=== PATIENT | female | born 1975 | race Caucasian/White ===

== ENCOUNTER 2018-04-07 10:30 | Outpatient (RCR) | payer MEDICAID, SELFPAY ==
--- NOTE | 2018-04-07 10:30 | DT_ITS ---
This patient was seen during an EMR downtime April 06, 2018 - April 13, 2018. This patient may have a combination of paper and electronic documentation or all paper documentation. All documentation is viewable within the e-chart portion of [facility] for each patient visit.
--- NOTE | 2018-04-14 20:06 | HP.PTEVAL_ITS ---
Patient's Visit Information ARAMIS PACE is a 43 year old F referred to Physical Therapy by Robson Lawson with a diagnosis of Hip Pain. Date of Evaluation: 04/07/18 Physical Therapist: Kari Murphy - Visit Plan Frequency: 2x /Week Duration: 1 Week Plan: 2x prior to surgery - Subjective Subjective: Patient reports that she has hip OA and is having a hip replacement at [facility] on April 14. She has had hip pain for about 4 years. She has had physical therapy outpatient and just finished a few days ago but the insurance company required her to attempt aquatic therapy before they would approve surgery. Dr. Lawson is doing her surgery. Worst: 08/12 Agg: everything Eases: heat Best: 04/12. Pain is in the right hip and radiates to the knee and into the back. Describes it as sharp/shooting and dull and achy depending on the moment. Sleep is disturbed. Work: does not work outside of her home. She does not drive. Is fully I with ADL's. Family does her grocery shopping for her. PMHx/Meds: Asthma, COPD, hip dysplasia, Fibro- Venolin, Flonase, Tramadol - Objective Posture: Fh, RS, increased kyphosis. Gait: severely antalgic- uses a straight cane- decreased stance on the right LE-poor heel/toe pattern. HR/TR: unable to WB on the right. Balance: unable but will weight shift about 25% to the right. Palpation: tender from quad to HS, hip and lumbar spine paraspinals. ROM: Flexion: decreased by 75%. Strength: Core: poor, Hip flexion: 2+/5, extn: 3/5, IR: unable to test secondary to significant pain ER: 4/5 - Goals Goal 1:: Patient will be I with HEP and progression Goal Time Frame: 4-6 Weeks - Rehabilitation Potential Physical Therapy Diagnosis: Patient presents with hypomobility- she has decreased strength, flex, ROM and muscular endurance leading to abnormal gait and increased pain with ADL's. Rehabilitation Potential: Fair - Anticipated Interventions Therapeutic Exercise to Include: Strength training, Endurance training, Balance training, Body mechanics, Flexibilty training, In an aquatic setting For the Purpose of:: To decrease pain Thank you for the opportunity to evaluate your patient. For Medicare and Medicare HMO plans, please review the plan of care and approve it. It will need to be FAXED BACK to us at [phone] for Medicare purposes. Please let me know if there are questions or concerns regarding this plan of care. Physician Signature: Date:
--- NOTE | 2018-04-14 20:09 | HP.PT.NRP ---
HP - Discharge Summary (1) - Patient Information ARAMIS PACE was seen in my office for initial evaluation on 04/07/18. The following Plan of Care was established for this patient: Initial Frequency: 2x /Week Initial Duration: 1 Week - Anticipated Interventions Therapeutic Exercise to Include: Strength training, Endurance training, Balance training, Body mechanics, Flexibilty training, In an aquatic setting For the Purpose of:: To decrease pain This patient was last seen in our office . Pertinent comments regarding their Physical therapy will appear below: Patient is having surgery 04/14/18- d/c at this time At this point I will be discontinuing this patient from physical therapy. I would be happy to see this patient again in the future if found appropriate by the physician. Thank you! Kari Murphy
== END 2018-04-07 19:00 | disposition home or self-care (01) ==
LOC: PT 10:30
PROVIDERS: Family Provider Internal Medicine; PCP Internal Medicine; Visit Provider Orthopaedic Surgery
DX: M16.11 Unilateral primary osteoarthritis, right hip (principal)
CPT/HCPCS: 97113; 97162

== ENCOUNTER 2018-04-14 09:11 | Inpatient (IN) | payer MEDICAID, SELFPAY ==
[2018-03-23 13:15] VITALS: BP 121/81; PULSE 80; RESP 16; TEMP 36.9; O2SAT 96; BMI 41.5
--- NOTE | 2018-03-23 13:30 | RAD_ITS ---
STUDY: X-RAY CHEST REASON FOR EXAM: Female, 43 years old. Preoperative evaluation. History of asthma. TECHNIQUE: PA and lateral views of the chest. COMPARISON: Comparison is made with prior study dated August 08, 2013. FINDINGS: The lungs are clear and expanded. There is no demonstrated pleural abnormality. Normal size heart. There are calcified mediastinal lymph nodes. Normal visualized pulmonary arteries. Normal visualized aortic arch and descending thoracic aorta. Normal visualized thoracic spine. Normal visualized ribs, clavicles, and shoulders. There is no demonstrated abnormality of the visualized soft tissue structures of the upper abdomen. RAD/Chest PA and Lateral IMPRESSION: No acute abnormality is seen. Electronically Signed: Tomer Daugherty MD at 14:31 EDT Tel [phone], Service support ,
--- NOTE | 2018-03-23 13:30 | SDCEKG_ITS ---
Test Reason : Blood Pressure : / mmHG Vent. Rate : 073 BPM Atrial Rate : 073 BPM P-R Int : 128 ms QRS Dur : 080 ms QT Int : 354 ms P-R-T Axes : 059 037 027 degrees QTc Int : 389 ms Normal sinus rhythm Normal ECG Confirmed by HUMBERTO TUCKER, GLORIA ([id number]), editor index MARLEE STRINGER ([id number]) on 03/27/2018 11:01:36 AM Referred By: DEBBIE TRAORE Confirmed By:GLORIA PAUL MD
[2018-03-23 14:00] LABS: Hematocrit 38.2 % (37-47); Hemoglobin 12.9 g/dl (12.0-15.0); Mean Corp Hgb Conc 33.8 g/gl (32-36); Mean Corpuscular Hgb 30.5 pg (27.0-32.0); Mean Corpuscular Volume 90.3 fL (81-99); Mean Platelet Vol. 9.1 fl (6.2-12.0); Platelet Count 311 K/mm3 (150-450); RBC Distribution Width CV 12.9 % (11.6-14.6); RBC Distribution Width SD 42.5 fl (35.1-43.9); Red Blood Count 4.23 M/mm3 (4.2-5.4); White Blood Count 8.4 K/mm3 (4.4-11.0)
[2018-03-23 14:03] LABS: Scan Indicated on CBC? Y/N NO
[2018-03-23 14:23] LABS: Anion Gap 8 (5-15); BUN 11 mg/dL (7-18); BUN/Creat Ratio 18.3 RATIO (10-20); Calcium,Total 8.6 mg/dL (8.5-10.1); Chloride 106 mmol/L (98-107); EST Glomerular Filtration Rate 115 mL/min (>60); Est Glom Filt Rate - Afr Amer 139 mL/min (>60); Estimated Creatinine Clearance 97.95 ml/min; Glucose 85 mg/dL (74-106); Sodium Level 140 mmol/L (136-145)
--- NOTE | 2018-04-03 11:38 | CASEMGMT ---
RN CM attempted to perform pre-op assessment of discharge needs. Voicemail left with return contact information, requesting call to RN CM.
[2018-04-14] VITALS (11 sets, daily range): BP systolic 103–124; BP diastolic 46–86; PULSE 51–109; RESP 16–18; TEMP 36.2–37.2; O2SAT 98–100; BMI 42.8
--- NOTE | 2018-04-14 | HIP_PTH ---
PATIENT: ARAMIS PACE LOC: [facility] U#:[id number] AGE/SX: 43/F ROOM: VA320 RE04/14/[address]: Robson Lawson MD : 1975 BED: 1 DIS: 04/15/2018 SPEC #: [id number] RECD: 04/14/18 14:33 STATUS: DELMAR REOg #: [id number] [place]: 04/14/18 00:[address]: Robson Lawson DEPT: SURGICAL PATHOLOGY RECD BY: Jose Antonio Matt ENTERED: 04/15/18 07:45 SP TYPE: TOTAL HIP OTHR DR: Dr. Jaquelin Levine MD Tissues: Hip, NOS Procedures: Decalcification bone/plaque Surgery Specimen Level IV HEADER OPERATION: Right total hip replacement PRE-OP DIAGNOSIS: Severe osteoarthritis of right hip secondary to shallow acetabulum and valgus hip TISSUE SUBMITTED: Right femoral head/soft tissue MICROSCOPIC DIAGNOSIS Right femoral head and soft tissue, total hip replacement: Femoral head with degenerative osteoarthritic changes. Fragments of fibroadipose tissue, fibroconnective tissue and reactive synovial tissue. SAMI:dom 04/20/18 MICROSCOPIC DESCRIPTION Slides are reviewed. GROSS DESCRIPTION Received is one container designated right femoral head and soft tissue. The specimen consists of a montague femoral head with portion of femoral neck. The femoral head measures 5 x 4.5 x 5 cm and the femoral neck measures up to 1.5 cm in length. The articular surface displays prominent osteophyte formation, eburnation and bone erosion. Also present in the specimen container are multiple irregular fragments of bone reamings and pink-yellow soft tissue measuring in aggregate 8 x 6 x 3.5 cm. Heater Operator Helper sections are submitted in two cassettes as follows: 1 - soft tissue, 2 - bone after decalcification. / SJ:dom 04/15/18 TC:5 CPT: 11015, 86723
[2018-04-14] MEDS: Acetaminophen 500 MG Tablet 1000 MG PO ×3 (09:45→21:20)
[2018-04-14] MEDS: Celecoxib 200 MG Capsule 400 MG PO (09:46)
[2018-04-14] MEDS: oxyCODONE HCl Cr 10 MG Tablet PO (09:46)
[2018-04-14] MEDS: Cefazolin 2 GM in 0.9% Normal Saline 100 ML IV (11:47)
--- NOTE | 2018-04-14 13:11 | RAD_ITS ---
STUDY: X-RAY - RIGHT HIP REASON FOR EXAM: Female, 43 years old. Postop TECHNIQUE: Radiological exam, hip, unilateral, when performed; 2 or 3 views. COMPARISON: None. FINDINGS: Review of the hips and unilateral right hip was performed. There is postoperative gas overlying the right hip soft tissues. There is a right hip arthroplasty appears to be in appropriate position. RAD/Hip Min 2 Views (Portable) IMPRESSION: Status post right hip arthroplasty. Electronically Signed: Priscilla Joe MD at 13:42 EDT Tel , Service support ,
[2018-04-14] MEDS: clonazePAM 0.5 MG Tablet PO ×2 (16:58→22:15)
[2018-04-14] MEDS: oxyCODONE 5 MG Tablet PO ×2 (16:58→22:15)
[2018-04-14] MEDS: Lactated Ringers 1,000 ML 125 ML IV (17:00)
[2018-04-14] MEDS: Aspirin 325 MG Tablet PO (17:00)
[2018-04-14] MEDS: Budesonide Respules 0.5 MG/2 ML AMPUL.NEB. INHALATION (19:27)
[2018-04-14] MEDS: Albuterol 2.5 MG/3 ML VIAL.NEB. INHALATION (19:27)
[2018-04-14] MEDS: Cefazolin 1 GM/50 ML BAG IV (19:30)
[2018-04-14] MEDS: Ketorolac 15 MG/ML Vial IV (19:39)
[2018-04-14] MEDS: Morphine 4 MG/ML Syringe IV (20:37)
[2018-04-14] MEDS: Celecoxib 200 MG Capsule PO (21:20)
[2018-04-14] MEDS: Acyclovir 200 MG Capsule PO (21:20)
[2018-04-14] MEDS: Senna/Docusate Sodium 1 Tablet 2 TABLET PO (21:20)
[2018-04-15 02:15] VITALS: BP 113/74; PULSE 82; RESP 17; TEMP 36.8; O2SAT 99
[2018-04-15] MEDS: oxyCODONE 5 MG Tablet PO ×3 (03:56→14:47)
[2018-04-15] MEDS: Cefazolin 1 GM/50 ML BAG IV (03:57)
[2018-04-15] MEDS: Acetaminophen 500 MG Tablet 1000 MG PO ×2 (05:08→14:04)
[2018-04-15 06:22] LABS: Hematocrit 31.8 % (37-47); Hemoglobin 10.8 g/dl (12.0-15.0); Mean Corpuscular Hgb 31.1 pg (27.0-32.0); Mean Corpuscular Volume 91.6 fL (81-99); Mean Platelet Vol. 9.1 fl (6.2-12.0); Platelet Count 285 K/mm3 (150-450); RBC Distribution Width CV 12.1 % (11.6-14.6); RBC Distribution Width SD 39.3 fl (35.1-43.9); Red Blood Count 3.47 M/mm3 (4.2-5.4); White Blood Count 8.9 K/mm3 (4.4-11.0)
[2018-04-15 06:39] LABS: Scan Indicated on CBC? Y/N NO
[2018-04-15] MEDS: Albuterol 2.5 MG/3 ML VIAL.NEB. INHALATION (06:59)
[2018-04-15] MEDS: Budesonide Respules 0.5 MG/2 ML AMPUL.NEB. INHALATION (06:59)
[2018-04-15 07:00] VITALS: PULSE 71; RESP 17
[2018-04-15 07:00] LABS: Anion Gap 5 (5-15); BUN 9 mg/dL (7-18); Calcium,Total 7.8 mg/dL (8.5-10.1); Chloride 105 mmol/L (98-107); Creatinine, Serum 0.75 mg/dL (0.55-1.02); EST Glomerular Filtration Rate 89 mL/min (>60); Est Glom Filt Rate - Afr Amer 108 mL/min (>60); Estimated Creatinine Clearance 78.36 ml/min; Glucose 101 mg/dL (74-106); Potassium 3.9 mmol/L (3.5-5.1); Sodium Level 140 mmol/L (136-145)
[2018-04-15 07:48] VITALS: O2SAT 96
[2018-04-15] MEDS: Aspirin 325 MG Tablet PO (07:57)
[2018-04-15] MEDS: Celecoxib 200 MG Capsule PO (07:58)
[2018-04-15] MEDS: Senna/Docusate Sodium 1 Tablet 2 TABLET PO (07:58)
[2018-04-15] MEDS: Famotidine 20 MG Tablet PO (07:58)
[2018-04-15] MEDS: Tolterodine Tartrate 4 MG CAP.SA PO (07:58)
[2018-04-15] MEDS: DULoxetine Hcl 60 MG Capsule PO (07:58)
[2018-04-15] MEDS: Acyclovir 200 MG Capsule PO (07:59)
[2018-04-15] MEDS: Loratadine 10 MG Tablet PO (07:59)
[2018-04-15 08:00] VITALS: BP 94/55; PULSE 81; RESP 18; TEMP 36.8; O2SAT 97
[2018-04-15] MEDS: clonazePAM 0.5 MG Tablet PO (08:02)
--- NOTE | 2018-04-15 09:42 | PN.ORTHO_ITS ---
Subjective: Patient is resting in chair at bedside during exam. No adverse events overnight. Pain has been very well controlled in the right hip. She is very pleased with how she is feeling postoperatively. She would like to be discharged home today. She denies chest pain, shortness of breath, dizziness, calf pain. Doing well overall. Objective: Patient is alert and oriented ?3. No acute distress at rest. Breathing easily without respiratory distress. Inspection of right hip reveals a dressing clean , dry, intact. Negative Rodolfo bilaterally. Sensation intact to light touch bilaterally. Pedal pulses present and equal bilaterally. Without signs of DVT. Neurovascularly intact. - Physical Exam Vital Signs Temp Pulse Resp BP Pulse Ox 98.2 F 81 18 94/55 L 97 04/15/18 08:00 04/15/18 08:00 04/15/18 08:00 04/15/18 08:00 04/15/18 08:00 Oxygen Delivery Method Room Air Weight: 107.955 kg Body Mass Index (BMI) 42.8 Intake and Output for Last 24 Hours 04/13/18 04/14/18 04/15/18 23:59 23:59 23:59 Intake Total 2700 / 2700 2244 / 2244 Balance 2700 / 2700 2244 / 2244 Laboratory Tests Past 24 Hrs 04/15/18 04/15/18 05:47 05:47 WBC 8.9 RBC 3.47 L Hgb 10.8 L Hct 31.8 L MCV 91.6 MCH 31.1 MCHC 34.0 RDW 12.1 RDW Differential 39.3 Plt Count 285 MPV 9.1 Sodium 140 Potassium 3.9 Chloride 105 Carbon Dioxide 30.0 Anion Gap 5 BUN 9 Creatinine 0.75 Estim Creat Clear Calc 78.36 Est GFR (MDRD) Af Amer 108 Est GFR (MDRD) Non-Af 89 BUN/Creatinine Ratio 12.0 Glucose 101 Calcium 7.8 L Medical Necessity - Tobacco Use Smoking Status: Current every day smoker Tobacco Use: Cigarettes Assessment/Plan All Active Problems COPD (chronic obstructive pulmonary disease) (Acute) 1. Status post right EUGENIO; postop day #1 2. Continue OxyIR and Tylenol for pain control 3. DVT prophylaxis; bilateral teds, SCDs discontinue aspirin therapy begin Xarelto therapy due to history of factor V Leiden deficiency and history of blood clot 4. Begin PT/OT; weightbearing as tolerated right lower extremity with a walker. Hip dislocation precautions 5. Drop in hemoglobin hematocrit; without indication for transfusion continue to monitor. 6. Encourage incentive spirometry 7. Continue discharge planning with case management
--- NOTE | 2018-04-15 09:45 | PCM.DC.THR ---
Discharge Diet: No Restrictions Discharge Activity: May Not Drive - while taking narcotic pain medications., May not drive while taking narcotic pain medications., Use Walker May shower in (days): 2 - only if incision is dry and without drainage. Do NOT soak/submerge in tub/pool/shannon/stream/hot tub. Okay to shower over Mepilex dressing Ice area for (Minutes): 20 - Every hour as needed Weight Bearing Status: Weight bearing as tolerated Elevate: Operative Extremity Additional Activity Instructions:: Wear elastic stockings for 2 weeks. DO NOT use alcohol with narcotic pain medication. DO NOT make important decisions while taking narcotic medication. If you have problems with taking your medication (rash, itching, nausea, etc.) call the office at once. Hip dislocation precautions. See postoperative pink sheet Call your doctor if your incision/area has: Continuous Slow Oozing, Sudden Increased Bleeding, Increased Pain/ Swelling, Increased Redness, Foul Smelling Discharge Call your doctor if you observe: Fever of 101 or Higher, Coldness, Increased Pain, Numbness or Tingling, Shortness of breath, Chest pain, Calf discomfort, Uncontrolled pain Remove Dressing in (days):: 5 Cleanse incision/area with: Soap & Water Additional Dressing/Incision Instructions:: See postoperative pink sheet Allergies/Adverse Reactions: Allergies No Known Allergies Allergy (Verified 03/23/18 13:10) Medications to take at Discharge Albuterol Inhaler [Ventolin Hfa] 1 - 2 puff INHALATION Q4H PRN PRN #1 inhaler 08/08/13 Cetirizine HCl [Zyrtec] 10 mg PO DAILY 08/08/13 Budesonide/Formoterol 160/4.5 [Symbicort 160/4.5 Mcg Inhaler (SP)] 2 puff INHALATION BID 03/23/18 Fluticasone 0.05% [Flonase Nasal [place]] 2 spray NASAL DAILY 03/23/18 Ranitidine [Zantac] 150 mg PO DAILY 03/23/18 Clonazepam [Klonopin] 0.5 mg PO Q4H PRN PRN 04/14/18 Duloxetine Hcl [Cymbalta] 60 mg PO DAILY 04/14/18 Oxybutynin Chloride [Ditropan Xl] 15 mg PO DAILY 04/14/18 Valacyclovir HCl [Valtrex] 500 mg PO DAILY 04/14/18 Acetaminophen [Tylenol] 1,000 mg PO Q8 #60 tab 04/15/18 Oxycodone [Oxyir] 5 - 10 mg PO Q4H PRN PRN 7 Days #56 tablet 04/15/18 Rivaroxaban [Xarelto] 10 mg PO DAILY@0600 #15 tab 04/15/18 Senna/Docusate Sodium [Senokot-S] 2 tab PO BID #30 tab 04/15/18 The following prescriptions were given: Oxycodone [Oxyir] 5 - 10 mg PO Q4H PRN PRN 7 Days #56 tablet PRN Reason: Mod-Severe Pain (-08/12) Acetaminophen [Tylenol] 1,000 mg PO Q8 #60 tab Rivaroxaban [Xarelto] 10 mg PO DAILY@0600 #15 tab Senna/Docusate Sodium [Senokot-S] 2 tab PO BID #30 tab Primary Care Physician: Jaquelin Lveine MD [Primary Care Provider] -
--- NOTE | 2018-04-15 11:10 | CASEMGMT ---
TRA JOHNSON Face to Face with patient for initial transition planning/care coordination assessment. TRA JOHNSON introduced self and role at [facility]. Patient sitting in chair, alert and oriented. Patient willing to participate in assessment and is able to answer all questions appropriately. Care providers, pharmacy, and demographics verified. Patient lives in a mobile home with her fiance with 5 steps to enter home. Patient states that she had a shower chair, raised toilet seat, hip kit, walker. Patient wishes to discharge home and is requesting HHC for PT. Sisit states that she has no preference for HHC as long as in-network with her insurance. Patient also stated that she was updated by pharmacy that her script for oxycodone would need prior authorization. Patient states she has no further needs or concerns at this time. CM to follow for discharge planning needs that may arise. Disposition Plan: Patient to discharge home with HHC, family support, and follow-up plans in place.
--- NOTE | 2018-04-15 14:00 | CASEMGMT ---
RN ELIZABETH called [facility], [facility], [facility], and [facility] and they are all unable to accept the patient either due to no staffing or unable to accept the patients insurance. RN ELIZABETH sent referral to [facility] and they are able to accept the patient. TRA JOHNSON also called [facility] to assist with oxycodone prior authoriztion. Per [facility] pharmacist Pam, [employer] insurance would only authorize 6 tabs per day for oxycodone 5mg and order is written for oxycodone 5mg 1-2tabs q 4 hours PRN for 7 days. RN CM updated AGUSTIN Garner regarding prior authorization. AGUSTIN Bradley requested that [facility] call her for verbal change to escript. TRA JOHNSON called [facility] with PA's request and pharmacy is unable to take verbal change to due medication being a narcotic. AGUSTIN Garner updated and requested CM attempt prior auth with [employer] insurance. TRA JOHNSON completed verbal prior auth over the phone with [facility] which could take up to 24 hours to approve or deny. RN ELIZABETH called GAUSTIN Garner and updated regarding prior auth. AGUSTIN Garner stated that she would be in later this afternoon to complete updated script for pain medication so patient can discharge. RN ELIZABETH will continue to follow this patient and plan for a safe discharge.
[2018-04-15 14:05] VITALS: BP 116/68; PULSE 64; RESP 16; TEMP 36.9; O2SAT 97
--- NOTE | 2018-04-15 15:09 | CASEMGMT ---
Social Work Note TRA Mcclellan updated this worker that pt has HCPOA but pt had already signed document and had her friend witness it. SW informed TRA Claudio that this worker will have to redo the document with pt so that two witnesses at hospital can witness her signature and sign document. SW in to meet with pt. SW informed pt that because she had already signed document and she only had one person witness her signature, pt will need to redo document. Pt states understanding and would like to complete HCPOA and living will documentation. SW assisted pt with completion of Health Care Power of Small Business Director and Living Will document. TRA Claudio and this worker witness pt's signature and signed document. SW copied document and placed on pt's chart and provided pt with original document. Pt denied additional needs or concerns. Plan: Discharge home Lacey Estrada [employer] DE[employer], [employer]
== END 2018-04-15 16:20 | disposition home or self-care (01) | DRG 301 ==
PROVIDERS: Admitting Provider Orthopaedic Surgery; Family Provider Internal Medicine; PCP Internal Medicine; Visit Provider Orthopaedic Surgery
PROC: 0SR90JZ Replacement of Right Hip Joint with Synthetic Substitute, Open Approach (ICD-10-PCS; CPT 27130; principal; 2018-04-14 10:50)
DX: M16.11 Unilateral primary osteoarthritis, right hip (principal); J44.9 Chronic obstructive pulmonary disease, unspecified; R71.0 Precipitous drop in hematocrit; K21.9 Gastro-esophageal reflux disease without esophagitis; J45.909 Unspecified asthma, uncomplicated; D68.51 Activated protein C resistance; M81.0 Age-related osteoporosis without current pathological fracture; F17.200 Nicotine dependence, unspecified, uncomplicated
CPT/HCPCS: 36415; 71046; 73502; 80048; 85027; 87081; 88305; 88311; 93005; 94640; 97116; 97162; 97165; 97530; 97535; C1776; J7120; A4216

== ENCOUNTER 2018-04-15 08:24 | Outpatient (RCR) | payer MEDICAID, SELFPAY | END 2018-04-15 08:25 | LOC: NS 08:24 | PROVIDERS: Family Provider Internal Medicine; PCP Internal Medicine; Visit Provider Orthopaedic Surgery | DX: M16.11 Unilateral primary osteoarthritis, right hip (principal) | CPT/HCPCS: 97802 ==

== ENCOUNTER 2023-05-02 15:46 | Outpatient (CLI) | payer MEDICAID, SELFPAY ==
--- NOTE | 2023-05-02 16:10 | RAD_ITS ---
INDICATION: crush injury left index finger at PIP joint EXAMINATION/TECHNIQUE: X-RAY - LEFT HAND XR Fingers Min 2 Views : 3 VIEWS left second finger COMPARISON: No relevant prior comparison study available FINDINGS: SOFT TISSUES: Mild diffuse second digit edema with overlying mid digit bandage. No radiopaque foreign body. BONES/JOINTS: No acute fracture or subluxation.. Normal alignment. Preservation of the joint space.. No sclerotic or destructive changes observed. RAD/Finger(s) Min 2 Views IMPRESSION: Second digit edema without evidence of underlying osseous injury.. Electronically Signed: Satish Irving MD at 23:39 EDT ,
== END 2023-05-02 23:59 | disposition home or self-care (01) ==
LOC: RAD 15:47
PROVIDERS: PCP Family Medicine; Referring Provider Surgery; Visit Provider Surgery
DX: S61.211A Laceration without foreign body of left index finger without damage to nail, initial encounter (principal); S66.321A Laceration of extensor muscle, fascia and tendon of left index finger at wrist and hand level, initial encounter; S67.10XA Crushing injury of unspecified finger(s), initial encounter; X58.XXXA Exposure to other specified factors, initial encounter; Y99.0 Civilian activity done for income or pay
CPT/HCPCS: 73140

== ENCOUNTER 2023-05-07 09:54 | Day surgery (SDC) | payer OTHER, MEDICAID, SELFPAY ==
[2023-05-07] VITALS (8 sets, daily range): BP systolic 91–125; BP diastolic 62–89; PULSE 61–85; RESP 16–20; TEMP 36.1–38.2; O2SAT 93–100; BMI 42.7
[2023-05-07] MEDS: Lactated Ringers 1,000 ML 15 ML IV (10:50)
[2023-05-07] MEDS: Vancomycin IV 1,000 MG/200 ML BAG 200 MG IV (10:50)
--- NOTE | 2023-05-07 11:20 | BON_PTH ---
PATIENT: ARAMIS PACE LOC: [facility] [place] U#:[id number] AGE/SX: 48/F ROOM: RE05/07/[address]: Dr. Robson Fair MD : 1975 BED: DIS: 05/07/2023 SPEC #: [id number] RECD: 05/07/23 15:37 STATUS: DELMAR PEYTON #: [id number] [place]: 05/07/23 11:[address]: Robson Fair DEPT: SURGICAL PATHOLOGY RECD BY: Teressa Gonsales ENTERED: 05/08/23 08:15 SP TYPE: Bone OTHR DR: Nery Weinberg PA-C Tissues: A - TISSUE SURGICALLY REMOVED B - Bone of hand, NOS Procedures: Decalcification bone/plaque Surgery Specimen Level III Surgery Specimen Level IV HEADER OPERATION: Surgical preparation dorsum left index finger at PIP joint PRE-OP DIAGNOSIS: Laceration of dorsal aspect left index finger at PIP joint secondary to crush injury TISSUE SUBMITTED: A - Debrided nonhealing soft tissue, left index finger, B - Bone left index finger MICROSCOPIC DIAGNOSIS A. Skin and soft tissue of left index finger, biopsy: Ulceration with associated acute and chronic inflammation. Minute fragments of bone and cartilage with no pathologic change. B. Bone, right index finger, biopsy: Fragments of bone with reactive and reparative change. No evidence of osteomyelitis. AM:dom 05/13/23 MICROSCOPIC DESCRIPTION Slides are reviewed. GROSS DESCRIPTION A - Received in fixative is one container labeled with the patient's name and designated debrided nonhealing soft tissue left index finger. The specimen consists of multiple irregular fragments of montague-white soft tissue and skin that in aggregate measure 2.0 x 1.5 x 0.2 cm. The specimen is totally submitted in one cassette. B - Received in fixative is one container labeled with the patient's name and designated bone left index finger. The specimen consists of multiple irregular fragments of light montague bone fragments that in aggregate measure 0.6 x 0.5 x 0.2 cm. The specimen is totally submitted in one cassette after decalcification. / AM:dom 05/08/2023 TC:[id number] CPT:2
--- NOTE | 2023-05-07 11:20 | BON_PTH ---
PATIENT: ARAMIS PACE LOC: [facility] [place] U#:[id number] AGE/SX: 48/F ROOM: RE05/07/[address]: Dr. Robson Fair MD : 1975 BED: DIS: 05/07/2023 SPEC #: [id number] RECD: 05/07/23 15:37 STATUS: DELMAR PEYTON #: [id number] [place]: 05/07/23 11:[address]: Robson Fair DEPT: SURGICAL PATHOLOGY RECD BY: Teressa Gonsales ENTERED: 05/08/23 08:15 SP TYPE: Bone OTHR DR: Nery Weinberg PA-C Tissues: A - TISSUE SURGICALLY REMOVED B - Bone of hand, NOS Procedures: Decalcification bone/plaque Surgery Specimen Level III Surgery Specimen Level IV HEADER OPERATION: Surgical preparation dorsum left index finger at PIP joint PRE-OP DIAGNOSIS: Laceration of dorsal aspect left index finger at PIP joint secondary to crush injury TISSUE SUBMITTED: A - Debrided nonhealing soft tissue, left index finger, B - Bone left index finger MICROSCOPIC DIAGNOSIS A. Skin and soft tissue of left index finger, biopsy: Ulceration with associated acute and chronic inflammation. Minute fragments of bone and cartilage with no pathologic change. B. Bone, left index finger, biopsy: Fragments of bone with reactive and reparative change. No evidence of osteomyelitis. AM:dom 05/13/23 AM:dom 05/21/2023 MICROSCOPIC DESCRIPTION Slides are reviewed. GROSS DESCRIPTION A - Received in fixative is one container labeled with the patient's name and designated debrided nonhealing soft tissue left index finger. The specimen consists of multiple irregular fragments of montague-white soft tissue and skin that in aggregate measure 2.0 x 1.5 x 0.2 cm. The specimen is totally submitted in one cassette. B - Received in fixative is one container labeled with the patient's name and designated bone left index finger. The specimen consists of multiple irregular fragments of light montague bone fragments that in aggregate measure 0.6 x 0.5 x 0.2 cm. The specimen is totally submitted in one cassette after decalcification. / AM:dom 05/08/2023 TC:2 CPT: 58982x7, 34254
[2023-05-07] MEDS: Lidocaine 1% /Epi 1:100 (20ml) 20 ML Vial (12:13)
[2023-05-07] MEDS: Mupirocin Ointment 22gm Tube 1 APPLIC (13:53)
--- NOTE | 2023-05-07 14:09 | PCM.OPRPT ---
Problems Associated Problem List Diagnoses (1) Laceration of left index finger w/o foreign body w/o damage to nail: (2) Skin ulcer of finger: (3) Skin necrosis: (4) Laceration without foreign body of left index finger without damage to nail, sequela: (5) Laceration of extensor structure of left index finger at hand level: (6) Crushing injury of finger, left: (7) Smoker: (8) Work related injury: (9) Finger osteomyelitis, left: Report of Operation Date of Procedure: 05/07/23 Pre-Operative Diagnosis: 1. Laceration of dorsal aspect left index finger at PIP joint secondary to crushing injury with suspicion of extensor tendon injury. 2. Late effect laceration left index finger with ulceration and skin necrosis. 3. Crushing injury of left index finger. 4. Work related injury. 5. Current every day smoker. Post-Operative Diagnosis: 1. Laceration of dorsal aspect left index finger at PIP joint secondary to crushing injury with suspicion of extensor tendon injury. 2. Late effect laceration left index finger with ulceration and skin necrosis. 3. Extensor digitorum communis (EDC) tendon laceration involving central slip PIP joint (Zone 3) left index finger. 4. Osteomyelitis distal portion proximal phalanx and proximal portion middle phalanx (PIP joint) left index finger. 5. Crushing injury of left index finger. 6. Work related injury. 7. Current every day smoker. Surgery/Procedure Performed:: 1. Surgical preparation dorsal aspect left index finger at PIP joint with incision and drainage and excisional debridement nonhealing infected ulcer. 2. Repair of extensor tendon laceration involving central slip of the common extensor at the PIP joint (Zone 3) left index finger. 3. Partial ostectomy distal portion proximal phalanx for osteomyelitis. 4. Partial ostectomy proximal portion middle phalanx for osteomyelitis. 5. Complex wound closure left index finger with dorsal advancement skin flap (10.5 cm2). Description of Surgical Findings:: 48 year old female, who is left hand dominant, presents with a left index finger injury that initially occurred while working on 04/03/23. She was referred to us by Dr. Carter at [facility], whom she saw on 04/28/23. 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 It cut her finger on the dorsal aspect at the PIP joint. She placed antibiotic ointment on it and covered it with a band aid and went back to work. She states that it scabbed over and the scab fell off a couple weeks ago with a residual ulceration. The ulceration increased her pain and discomfort. She went to see her PCP 04/24/23 who prescribed Silvadene cream to be applied to the ulcer and placed her on Keflex. The pain and redness and swelling increased. She went to the ED at [facility] on 04/28/23 where they took and x-ray and added Bactrim to the Keflex and updated her Tetanus vaccine. The x-ray showed No acute disease. Mild degenerative changes are present at the interphalangeal joints. Jewelry obscures a portion of the base of the 2nd digit. A splint was placed to keep her left index finger extended at the DIP and PIP joints. She was referred to Dr. Carter at [facility], whom she saw the next day on 04/29/23. He was able to cut the ring off her left index finger and he referred her to us for further evaluation and treatment. Patient was informed of the risks and complications of the procedure including alternatives to surgery. These were discussed with the patient personally. Patient voices understanding and wishes to proceed. Some of the risks and complications were included in a form from the [employer]. Some of the risks and complications that were discussed included but were not inclusive of failure to diagnose including symptom relief, pain, infection, numbness, stiffness, loss of digit, RSD (CRPS), need for further surgery, contracture, and wound healing problems. Potential risks and complications included but not inclusive of bleeding, infection, seroma, hematoma, bruising, swelling, loss of sensation to skin, partial or complete loss of skin, wound breakdown, need for wound care, poor scarring, poor aesthetic outcome, intra operative cardiac or neurologic events, DVT, PE, and reaction to anesthesia. Encouraged patient to stop smoking as it may have deleterious effects on wound healing. Total tourniquet time - 115 minutes. Surgeon: Robson Fair MD marine specialist: None Type of Anesthesia: General Anesthesiologist: Ji Livingston MD and Fadia Felix CRNA Specimen's removed: 1. Infected soft tissue left index finger ulcer to Pathology and Microbiology. 2. Bone (PIP joint) left index finger ulcer to Pathology and Microbiology. Drains: None. Estimated Blood Loss (mL): 5. Description of Procedure: Patient was taken to OR in supine position and was placed under general anesthesia. The left upper extremity was prepped and draped to the mid-forearm in the usual fashion. SCD's were placed for DVT prophylaxis. Perioperative antibiotics were given intravenously. Using xylocaine with epinephrine, a digital metacarpal block was infiltrated to the index finger. After waiting 5 minutes for the anesthetic to take effect, the left hand was elevated. I held a towel over the left hand as the tourniquet was elevated to 250 mmHg. I proceeded with the surgery under loupe magnification. I started with surgical preparation left index finger with incision and drainage and excisional debridement nonhealing infected ulcer. Small amount of pus was seen. A lot of fat necrosis was present and was excised and debrided. The skin edges of the ulcer were excised and debrided. Dissecting down to the extensor tendon, there was injury to the central slip of the common extensor at the PIP joint. I extended the incision in a zig zag fashion distally and in a longitudinal fashion proximally to get better exposure. There was also an injury to the radial lateral band. Distally there was an injury to the triangular ligament. The central slip injury was not a complete separation off the bone. It was however swollen and frayed. I proceeded with a repair with 4-0 Nylon figure of eight interrupted sutures. I also used 4-0 Nylon figure of eight interrupted sutures for the repair of the radial lateral band and triangular ligament. The injury extended into the PIP joint. No pus was seen. There is concern about osteomyelitis. Using a rongeur, I proceeded with partial ostectomy of the distal portion proximal phalanx and the proximal portion middle phalanx. I irrigated out the wound copiously with saline. Half the soft tissue and half the bone was sent to Pathology for analysis to rule out carcinoma and to evaluate for osteomyelitis. Half the soft tissue and half the bone was sent to Microbiology for culture. A positive culture will necessitate antibiotic therapy. The wound and tendon looked rug cleaner hand to try and close the wound with a dorsal advancement skin flap. The closure will give some protection to the recently repaired extensor tendon. By not closing the wound, the exposure of tendon along with its repair will have increased risk of the tendon drying out or the tendon rupturing which would increase the complexity of the finger reconstruction. I continued the radial longitudinal extension proximally onto the dorsum of the hand and then in a zig zag fashion past the MP joint. I elevated the proximal flap at the level of the extensor tendon. The dorsal skin flap was freed up enough to be advanced into the wound defect with minimal tension and minimal distortion. The size of the wound defect and the size of the flap needed to close the wound defect was 10.5 cm2. The wound defect measured 1.5 x 1.5 cm. The flap measured 5.5 x 1.5 cm. The tourniquet was released after 115 minutes. Hemostasis was obtained with electrocautery and gentle gauze compression. I then closed the skin with 5-0 Nylon simple interrupted and vertical mattress interrupted sutures. The flap remained pink with good capillary refill. No clinical evidence of hematoma. Antibiotic ointment was applied to the suture lines followed by 2x2 gauze over the incisions and the web spaces. This was followed with a 2 inch Erik wrap and a compression haim wrap over a plaster splint keeping the fingers extended and the MP joints flexed and the wrist in slight dorsiflexion. Patient tolerated the procedure well and was sent to PACU in satisfactory condition. Patient will be sent home on antibiotics and pain medication. She will keep her left hand and index finger elevated during the postoperative period. Patient will followup in a week for a wound check and for discussion of the pathology report and for discussion of the microbiology report. A positive culture will necessitate antibiotic therapy. The sutures will be removed in 2 weeks. Will set her up with OT to fashion a silastic (thermoplastic) splint along with range of motion exercises, strengthening, and edema management. Grafts/Implants Used: None. Procedure Start Time: 11:56 Procedure Stop Time: 14:01 Complications None. Admit VTE Documentation VTE Present on Admission: No VTE Mechan Device Prophylaxis: SCD's VTE Pharm Prophylaxis ordered?: No Addendum Addendum: Surgery Charges CPT - 21757 ICD-10 - S61.211A, L98.499, I96, S61.211S, S66.321A, M86.9, S67.10xA, Y99.0, F17.200 50654 S61.211A, S66.321A, L98.499, I96, S61.211S, M86.9, S67.10xA, Y99.0, F17.200 53299 S61.211A, M86.9, L98.499, I96, S61.211S, S66.321A, S67.10xA, Y99.0, F17.200 50768 S61.211A, M86.9, L98.499, I96, S61.211S, S66.321A, S67.10xA, Y99.0, F17.200 73283 S61.211A, L98.499, I96, S61.211S, S66.321A, M86.9, S67.10xA, Y99.0, F17.200
--- NOTE | 2023-05-07 15:55 | DCINST_ITS ---
Discharge Instructions Diet Discharge Diet: No restrictions and - (encourage nutritional supplementation with protein to help the healing process.) Activity Discharge Activity: May Shower (wear plastic bag over left hand when showering.) and - (no lifting with left hand. elevate left hand.) Return to work on:: 08/03/23 (tentative) May shower in (days): 1 (wear plastic bag over left hand when showering.) May resume sexual activity in: 10-14 days Weight Bearing Status: Weight bearing as tolerated Keep extremity elevated above heart level: Left Arm Dressing / Incision Call your doctor if your incision/area has: Continuous Slow Oozing, Sudden Increased Bleeding, Increased Pain/ Swelling, Increased Redness, Foul Smelling Discharge and Swelling at the incision site Call your doctor if you observe: Fever of 101 or Higher, Coldness, Increased Pain, Shortness of breath, Chest pain, Calf discomfort and Uncontrolled pain Remove Dressing in: do not remove dressing (will remove operative dressing in the office.) Cleanse incision/area with: - (wear plastic bag over left hand when showering.) Follow Up Care Please Follow Up With: Robson Fair MD When: one week. call [phone] for appt. Test Results: Test results from this visit will be discussed in further detail at your follow- up appointment, if applicable. Discharge Plan Admission Primary Reason for Your Visit: complex hand surgery from injury at work Attending Provider: Robson Fair Primary Care Provider: Nrey Weinberg Discharge Orders/Prescriptions Prescriptions: New doxycycline hyclate 100 mg capsule 100 mg PO BID Qty: 30 1RF L.acidoph,saliva-B.bif-S.therm [Acidophilus Probiotic Blend] 175 mg capsule 1 cap PO DAILY Qty: 60 1RF docusate sodium [Colace] 100 mg capsule 100 mg PO BID Qty: 60 1RF promethazine 25 mg tablet 25 mg PO Q6H PRN (Reason: nausea and vomiting) Qty: 30 1RF hydromorphone [Dilaudid] 2 mg tablet 2 mg PO Q6H PRN (Reason: pain (scale score 7-10)) 7 Days Qty: 28 0RF Rx Instructions: 28 tabs (twenty-eight) Continued Zyrtec 10 mg capsule 10 mg PO DAILY PRN (Reason: ALLERGIES) albuterol sulfate [ProAir HFA] 90 mcg/actuation HFA aerosol inhaler 2 puff inhalation Q6H PRN (Reason: ASTHMA) topiramate [Topamax] 25 mg tablet 25 mg PO BID metoprolol tartrate 25 mg tablet 25 mg PO DAILY oxycodone-acetaminophen [Percocet] 5-325 mg tablet 1 tab PO Q6H PRN (Reason: pain (scale score 7-10)) 7 Days Qty: 28 0RF Rx Instructions: 28 tabs (twenty-eight) oxybutynin chloride [Ditropan XL] 15 MG tablet extended release 24hr 15 mg PO DAILY clonazepam 0.5 MG tablet 0.5 mg PO Q4H PRN PRN (Reason: Anxiety) valacyclovir [Valtrex] 500 MG tablet 500 mg PO DAILY duloxetine 60 MG capsule 60 mg PO DAILY meloxicam 7.5 mg tablet 7.5 mg PO DAILY Referrals / Follow Up: Nery Weinberg PA-C [Primary Care Provider] - Disposition Disposition (needs filled in before D/C Order can be placed): Home, Self Care
== END 2023-05-07 17:23 | disposition home or self-care (01) ==
LOC: SDC 09:58 → AC 10:00
PROVIDERS: PCP Family Medicine; Referring Provider Surgery; Visit Provider Surgery
PROC: (CPT 15004; principal; 2023-05-07 11:05)
DX: S61.211A Laceration without foreign body of left index finger without damage to nail, initial encounter (principal); I96 Gangrene, not elsewhere classified; L98.499 Non-pressure chronic ulcer of skin of other sites with unspecified severity; M86.9 Osteomyelitis, unspecified; S67.10XA Crushing injury of unspecified finger(s), initial encounter; F17.210 Nicotine dependence, cigarettes, uncomplicated; J45.909 Unspecified asthma, uncomplicated; F32.A Depression, unspecified; F41.9 Anxiety disorder, unspecified; I10 Essential (primary) hypertension; K21.9 Gastro-esophageal reflux disease without esophagitis; Y99.0 Civilian activity done for income or pay; Z79.899 Other long term (current) drug therapy
CPT/HCPCS: 15004; 26418; 26235; 14041; 00300; 87070; 87075; 87102; 87176; 87205; 87206; 88304; 88305; 88311; J7120; J2405

== ENCOUNTER 2023-07-14 12:00 | Outpatient (RCR) | payer OTHER, MEDICAID, SELFPAY ==
--- NOTE | 2023-06-12 15:40 | HP.OTEVAL ---
Patient's Visit Information Visit Information Visit Information: ARAMIS PACE is a 48 year old F, referred to Occupational Therapy by Dr. Robson Fair MD, with a diagnosis of laceration w/o foreign body on left index finger without damage to nail. Date of Evaluation: 06/11/23 Occupational Therapist: Tressa Tony, SHASTAR/Dinh, CHT Subjective Subjective: Pt is a 48 year old female arrives 5 weeks s/p zone 3 extensor tendon with a central slip of the common extensor on May 07, 2023. Patient experienced a crush injury at work ([employer]) by a dryer vent door on April 03, 2023. Pt reports finger had an ulcer then tendon started to show and sought medical attention. Pt arrives with splint donned, reports wearing it all of the time. Pt reports being off of work until September 03, 2023. Pt left-hand dominant. Pain L IF/MF, hand: Current Pain Intensity: 3 Pain Intensity Range: 8 Objective Objective/Observation: scar adhered to tendon at L IF ROM MP: R IF 0/79 MF -4/81 L IF -20/52 MF -45/64 PIP: R IF +2/95 MF +3/93 L IF 0/63 MF -15/60 DIP: R IF 0/63 MF -15/60 L IF -19/25 MF-2/5 Strength Strength Comments: will test later date Edema PIP: L IF 7.5 cm MF 7cm R IF 6.5cm MF 6.3cm Other: MCP L 21 cm R 18.5 cm Sensation Sensation Comments: numb, itchy, painful with touch L IF/MF parathesia in whole L hand, sometimes isolated to finger Quick DASH-Disab of Arm,Shoulder& Hand Quick DASH Score: 90.0000 Goals Goal:100% adherence to protocol: Yes Goal:Daily scar massage when approriate: Yes Goal:ROM equal to unaffected hand: Yes Goal:Appeals Examiner/Pinch strength at least 75% of unaffected hand: Yes Comment: will initiate when appropriate Goal:No pain with affected hand use: Yes Goal:PIP Circumferences equal to unaffected hand: Yes Goal:Full use of affected hand in daily activities including work: Yes Goal:Decrease scar hypersensitivity: Yes Other Goal: Pt to demo overall increased indep in ADL/IADL tasks by decreased total DASH score by 15 points by discharge. Rehabilitation General Assessment: Pt seen for OT eval status post Zone 3 extensor tendon repair with a central slip of common extensor PIP in left index finger on May 07, 2023. Due to delay in C9 approval pt arrives to therapy 5 weeks s/p. Pt demo limited ROM and tolerates very light pressure on L IF/RF and has L hand numbness. These deficits inhibit patients ability to perform functional ADL/IADL tasks. Pt will benefit from skilled OT 3x a week for 2 months for desensitization, scar management, sensory re-training, improve ROM in digits, and edema management to safely return to ADL and IADL tasks. Pt verbalizes understanding of protocol and agreeable to OT POC. Therapy session was directly supervised and doc. approved by Tressa Tony OTR/Dinh,ALIAT. Rehabilitation Potential: Excellent Anticipated Interventions Anticipated Interventions: A/AAROM/PROM, Strengthening, Edema Control, Scar Care, Triggerpoint Release, Desensitization, Sensory Retraining, Wound Care, Modalities, Orthoses, Joint Protection/Energy Conservation, Ergonomic Education, Fine Motor Coord/Ramin, Sensory Stimulation, Education re Diagnosis, Education re Skin Care and Precautions and Home Program Visit Plan Frequency: 3x /Week Duration: 2 Months General Plan: fluidotherapy/paraffin TEXT: Thank you for the opportunity to evaluate your patient. For Medicare and Medicare HMO plans, please review the plan of care and approve it. It will need to be FAXED BACK to us at [phone] for Medicare purposes. Please let me know if there are questions or concerns regarding this plan of care. Physician Signature: Date:
--- NOTE | 2023-10-06 09:49 | HP.OT.NRP ---
Patient Information Patient Information: ARAMIS PACE was seen in my office for initial evaluation on 06/11/23. The following Plan of Care was established for this patient: POC Established Initial Frequency: 3x /Week Initial Duration: 2 Months Plan: Continue POC: 2 months - 3x week please just get AROM measurements passive is OK but need to know what she is able to do Anticipated Interventions Anticipated Interventions: A/AAROM/PROM, Strengthening, Edema Control, Scar Care, Triggerpoint Release, Desensitization, Sensory Retraining, Wound Care, Modalities, Orthoses, Joint Protection/Energy Conservation, Ergonomic Education, Fine Motor Coord/Ramin, Sensory Stimulation, Education re Diagnosis, Education re Skin Care and Precautions and Home Program Last Seen Last Seen: This patient was last seen in our office 07/14/23. Pertinent comments regarding their Occupational therapy will appear below: pt was having difficulty with transportation and was hopeful to get therapy closer to home. pt d/c due to time lapse in service. At this point I will be discontinuing this patient from occupational therapy. I would be happy to see this patient again in the future if found appropriate by the physician. Thank you! Tressa Tony, OTR/L, CHT
== END 2023-07-14 19:00 | disposition home or self-care (01) ==
LOC: OT 12:00
PROVIDERS: PCP Family Medicine; Referring Provider Surgery; Visit Provider Surgery
DX: S61.211D Laceration without foreign body of left index finger without damage to nail, subsequent encounter (principal)
CPT/HCPCS: 97110; 97140; 97166; 97530

== ENCOUNTER 2024-03-01 09:56 | Outpatient (RCR) | payer MEDICAID, SELFPAY ==
[2024-03-01 10:18] VITALS: BP 150/83; PULSE 80; TEMP 36.9; BMI 43.9
--- NOTE | 2024-03-01 12:28 | HBO.CON.PC_ITS ---
Assessment & Plan Assessment/Plan (1) Skin ulcer of abdominal wall with fat layer exposed: (2) Prediabetes: (3) Smoker: PLAN: Plan Patient evaluated at the wound healing center. Right superior lower abdominal ulcer and right inferior lower abdominal ulcer will place History of Present Illness Date of Service: 03/01/24 Chief Complaint: Right lower abdomen ulcer History of Wound: 49 year old female, who is known to me, presents with two ulcers on her lower abdomen/pannus that she noticed a month ago. She has been seeing her PCP about this and has cultured it. She states the culture is staph, but not MRSA. She is currently on Bactrim. She states she has been covering the area with gauze, but the gauze falls off. She states she is now prediabetic. She has a history of a work injury to her left index finger where she obtained a cut that went into her joint space, she has issues with stiffness and pain in that finger. She is now working at [employer], she does stand/walk a lot with her job. Today she denies any fever, chills, nausea or vomiting. Progress of Wound: Right lower abdomen/pannus ulcer with pink wound base. She has a small ulcer that is almost healed on her inferior right abdomen. [facility] Medical History Anxiety Arthritis Asthma Carpal tunnel syndrome Chronic cough Crushing injury of finger, left Depression Finger osteomyelitis, left Gastric reflux GERD (gastroesophageal reflux disease) History of back problems History of irregular heartbeat Hx of blood diseases Hx of migraines Hypertension IBS (irritable bowel syndrome) Laceration of extensor structure of left index finger at hand level Laceration of left index finger w/o foreign body w/o damage to nail Laceration without foreign body of left index finger without damage to nail, sequela Muscle spasm Pressure ulcer of unspecified site, unspecified stage Seasonal allergies Shortness of breath on exertion Skin necrosis Skin ulcer of finger Smoker Smoker UTI (urinary tract infection) Wears glasses Work related injury Home Medications clonazepam 0.5 mg tablet 0.5 mg PO Q4H PRN PRN Anxiety 04/14/18 [History Last Taken Unknown] duloxetine 60 mg capsule,delayed release 60 mg PO DAILY ANXIETY 04/14/18 [Histo ry Last Taken 05/03/23] oxybutynin chloride 15 mg tablet,extended release 24 hr (Ditropan XL) 15 mg PO DAILY urine 04/14/18 [History Last Taken 05/06/23] valacyclovir 500 mg tablet (Valtrex) 500 mg PO DAILY herpes 04/14/18 [History Last Taken 05/06/23] albuterol sulfate 90 mcg/actuation aerosol inhaler (ProAir HFA) 2 puff inhalation Q6H PRN ASTHMA 06/08/21 [History Last Taken Unknown] cetirizine 10 mg capsule (Zyrtec) 10 mg PO DAILY PRN ALLERGIES 06/08/21 [History Last Taken 05/06/23] topiramate 25 mg tablet (Topamax) 25 mg PO BID 06/08/21 [History Last Taken 05/06/23] metoprolol tartrate 25 mg tablet 25 mg PO DAILY 05/02/23 [History Last Taken 05/07/23] meloxicam 7.5 mg tablet 7.5 mg PO DAILY 05/05/23 [History Last Taken 05/06/23] nifedipine 30 mg tablet,extended release 24 hr (Procardia XL) 30 mg PO DAILY 30 days #30 tabs 06/24/23 [Rx Last Taken Unknown] gabapentin 300 mg capsule See Rx Instructions .Route .COMPLEX #60 caps 12/18/23 [Rx Last Taken Unknown] metronidazole 1 %-mupirocin 2 % topical ointment ea topical 01/22/24 [History Last Taken Unknown] sulfamethoxazole 400 mg-trimethoprim 80 mg tablet (Bactrim) 1 tab PO BID 01/22/24 [History Last Taken Unknown] amitriptyline 10 mg tablet 10 mg PO QHS 30 days #30 tabs 01/23/24 [Rx Last Taken Unknown] gabapentin 300 mg capsule 300 mg PO BID 30 days #60 caps 02/17/24 [Rx Last Taken Unknown] Allergy/AdvReac Type Severity Reaction Status Date / Time No Known Allergies Allergy Verified 01/22/24 14:15 Family History Other Alcoholism Anxiety Arthritis COPD (chronic obstructive pulmonary disease) CVA (cerebral vascular accident) Clotting disorder Depression Diabetes Hypertension Surgical History History of foot surgery History of hand surgery History of hip replacement History of tubal ligation Hx of section Hx of dilation and curettage Social History Smoking Status: Current every day smoker tobacco type: cigarettes Tobacco: How many years used: 30 alcohol intake: current Alcohol type: beer and wine details: Casual substance use type: unknown ROS Constitutional Constitutional: Denies chills, fever(s) or frequent falls Eyes Eyes: Reports none ENT HEENT: Reports none Cardiovascular Cardiovascular: Denies chest pain or dyspnea Respiratory/Chest Respiratory/Chest: Denies cough or dyspnea Gastrointestinal Gastrointestinal: Reports none Musculoskeletal Musculoskeletal: Reports joint stiffness Integumentary Integumentary: Reports skin ulcer Neurologic Neurologic: Reports none Psychiatric Psychiatric: Reports systems reviewed and no addt'l complaints, except as documented Endocrine Endocrinology: Reports none Physical Exam Physical Exam Const alert and oriented x3 General Appearance: cooperative and well kempt HEENT normocephalic Head and Scalp: atraumatic Eyes General Eye: normal appearance of both eyes Neck full ROM Lymph Lymphatic: no lymphedema noted Resp normal respiratory effort, normal air movement and clear to auscultation bilaterally Effort and Inspection: able to speak in complete sentences Cardio regular rate and regular rhythm Peripheral Pulses: pulses 2+ throughout GI soft to palpation and non-tender GI Narrative: Firmness at the lowest portion of pannus, ,most likely from edema. Auscultation: normoactive bowel sounds Back/Spine normal ROM Extremity normal capillary refill Skin Wound Narrative: Two ulcers on her lower right pannus, on the most dependent portion. Right abdomen superior ulcer is round, has pink wound bed. There is dimpling of skin surrounding this area, suggesting fluid/edema is present. Right lower abdomen inferior ulcer is small, almost healed, pink wound bed. Neuro oriented x3 Sensorium / Orientation: awake and alert Speech: speech normal Psych mental status grossly normal, thought process normal, cooperative and affect normal Nursing Assessment and Debridement Post-Debridement Measurements and Additional Note: Post-Debridement Measurements/Treatment LICO - Nurse 1 - General Ulcer Assessment Start: 03/01/24 10:17 Freq: Status: Active Protocol: TEENA Activity Type Activity Date Activity User E-sign Co-sign Detail Recorded Client Recorded Date Recorded By Document 03/01/24 10:18 DS Desktop 03/01/24 10:30 DS 03/01/24 10:18 WC - Today's Visit Information Type of service Initial Visit Arrival Mode Ambulatory Accompanied by family out in waiting room Patient Identification Verified (Name & Yes ) Safety Precautions NA Height and Weight Height 5 ft 2 in Weight 240 lb Weight in Pounds 240.0 lbs Weight Measurement Method Estimated by Patient Body Mass Index (BMI) 43.9 BMI Classification Obese BSA - [place] 2.07 Vital Signs Temperature (97.8 F-99.1 F) 98.5 F Temperature Source Temporal Pulse Rate (60-100) 80 Blood Pressure (90/60-120/80) 150/83 H Blood Pressure Mean (mm Hg) 105 Source Monitor Position Sitting Blood Pressure Location Left Arm History Since Last Visit- (Skip if this is Patient's initial visit) Any new allergies or adverse reactions No Had a fall/change in ADL's that may No increase risk of falls Pain Scale: 0-10 Numeric Is Patient Pain Free? 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 No Able to Read Yes Able to Write Yes Right Hearing Abillity Normal Left Hearing Abillity Normal Visual Assistive Devices Glasses Teaching Assessment Preferences Verbal,Written, Demonstration Barriers to Learning None Readiness To Learn Excellent Willingness to Engage in Self Management High Activies Readiness to Engage in Self Management High Activities Anxiety Level Calm Cooperation Cooperative Perception Coherent Interest in Health Problem Asks Questions Education Importance Acknowledges Need Does Patient Smoke tobacco or other Yes substances Smoking Status Current every day smoker Is Patient Diabetic No Functional Assessment Recent Decline in Ability to Perform Denies Any Declines 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 Cultural/Jewish Needs that may affect No Treatment Plan Teaching: Wound Center *Wound/Skin Impairment -Person Taught Patient -Teaching Method Discussion -Response to teaching Verbalize understanding *Welcome to the Wound Center -Person Taught Patient -Teaching Method Discussion -Response to teaching Verbalize understanding - Nurse 1 - General Ulcer Measurement Start: 03/01/24 10:17 Freq: Status: Active Protocol: Activity Type Activity Date Activity User E-sign Co-sign Detail Recorded Client Recorded Date Recorded By Document 03/01/24 10:18 DS Desktop 03/01/24 10:30 DS 03/01/24 10:18 Wound Center Nurse 1 #2 right abd inf -Current Size (cm) - Length 0.3 -Current Size (cm) - Width 0.5 -Current Size (cm) - Depth 0.1 -Total Square Cm 0.15 -Date of Last Picture (Recall this 03/01/24 field) -Photo Taken Yes -Tunneling No -Undermining/Tunneling No -Circular Undermining No -Exudate Amt Medium -Exudate Type Serosanguineous -Wound Margin Distinct, Outline Attached -Granulation Amt Large (67-100%) -Granulation Quality Red -Slough/Fibrin No -Necrosis Amt None Present (0 %) -Texture ([place]ola-wound Skin Appearance) Assessed -Moisture ([place]ola-wound Skin Appearance) Assessed -Color ([place]ola-wound Skin Appearance) Assessed -Temperature ([place]ola-wound Skin No Abnormality Appearance) (Pt Warm) -Tenderness on Palpation ([place]ola-wound Yes Skin Appearance) -Ulcer Cleansing Rinsed/ Irrigated with Saline -Foul Odor after Cleansing No -Anesthetic Used 5% Lidocaine Gel #1 superior abd- right -Current Size (cm) - Length 1.4 -Current Size (cm) - Width 2.4 -Current Size (cm) - Depth 0.1 -Total Square Cm 3.36 -Date of Last Picture (Recall this 03/01/24 field) -Photo Taken Yes -Tunneling No -Undermining/Tunneling No -Exudate Amt Medium -Exudate Type Serosanguineous -Wound Margin Distinct, Outline Attached -Granulation Amt Large (67-100%) -Granulation Quality Red -Slough/Fibrin Yes -Necrosis Amt Small (1-33%) -Necrotic Tissue Type Adherent Slough -Texture ([place]imbola-wound Skin Appearance) Assessed -Moisture ([place]imbola-wound Skin Appearance) Assessed -Color ([place]imbola-wound Skin Appearance) Assessed -Temperature ([place]imbola-wound Skin No Abnormality Appearance) (Pt Warm) -Tenderness on Palpation ([place]ola-wound No Skin Appearance) -Ulcer Cleansing Rinsed/ Irrigated with Saline -Foul Odor after Cleansing No -Anesthetic Used 4% Lidocaine Solution WC - Nurse 2 - General Ulcer CM Notes Start: 03/01/24 10:17 Freq: Status: Active Protocol: Activity Type Activity Date Activity User E-sign Co-sign Detail Recorded Client Recorded Date Recorded By Document 03/01/24 10:52 Laptop 03/01/24 10:58 03/01/24 10:52 Wound Center Nurse 2 #2 right abd inf -Time 10:56 -Correct Patient Yes -Correct Side, Site, Position Yes -Correct Procedure Yes -Procedure Performed Yes -Type of Procedure Debridement -Clinical Debridement Subcutaneous -Tissue Removed Subcutaneous -Post Debridement (cm) - Length 0.2 -Post Debridement (cm) - Width 0.5 -Post Debridement (cm) - Depth 0.1 -Total Square (Post) (cm) 0.10 -Area of Debridement (cm) - Length 0.2 -Area of Debridement (cm) - Width 0.5 -Total Square (Area) (cm) 0.10 -Tunneling No -Undermining/Tunneling No -Circular Undermining No -Wound/Ulcer Outcome Not Healed -Ulcer Cleansing Rinsed/ Irrigated with Saline -Foul Odor after Cleansing No -Bioengineered Tissue No -Bleeding Controlled with Pressure -Treatment Response Procedure Tolerated Well -Offloading No -Debridement - Subq, 1st 20sq cm No #1 superior abd- right -Time 10:57 -Correct Patient Yes -Correct Side, Site, Position Yes -Correct Procedure Yes -Procedure Performed Yes -Type of Procedure Debridement -Clinical Debridement Subcutaneous -Tissue Removed Subcutaneous -Post Debridement (cm) - Length 1.6 -Post Debridement (cm) - Width 2.2 -Post Debridement (cm) - Depth 0.1 -Total Square (Post) (cm) 3.52 -Area of Debridement (cm) - Length 1.6 -Area of Debridement (cm) - Width 2.2 -Total Square (Area) (cm) 3.52 -Tunneling No -Undermining/Tunneling No -Circular Undermining No -Wound/Ulcer Outcome Not Healed -Ulcer Cleansing Rinsed/ Irrigated with Saline -Foul Odor after Cleansing No -Bioengineered Tissue No -Bleeding Controlled with Pressure -Treatment Response Procedure Tolerated Well -Offloading No -Debridement - Subq, 1st 20sq cm Yes Pain Scale: 0-10 Numeric Is Patient Pain Free? Yes LICO - Nurse 3 - General Ulcer D/C NN Start: 03/01/24 10:17 Freq: Status: Active Protocol: Activity Type Activity Date Activity User E-sign Co-sign Detail Recorded Client Recorded Date Recorded By Document 03/01/24 10:58 Laptop 03/01/24 11:08 03/01/24 10:58 Wound Care Center Nurse 3 #2 right abd inf -Ulcer Cleansing Rinsed/ Irrigated with Saline -Foul Odor after Cleansing No -Primary Dressing Applied Promogran Marie Matter -Primary Dressing Covered/Secured with Dry Gauze, Secured with Tape -Promogran Marie Matter 1 #1 superior abd- right -Ulcer Cleansing Rinsed/ Irrigated with Saline -Foul Odor after Cleansing No -Primary Dressing Applied Promogran Marie Matter -Primary Dressing Covered/Secured with Dry Gauze, Secured with Tape -Promogran Marie Matter 0 Pain Scale: 0-10 Numeric Is Patient Pain Free? Yes WC - Visit Discharge Discharge Condition Stable Ambulatory Status Ambulatory Transportation Private Auto Medication Reconcilliation completed & Yes provided to patient/care provider Clinical Summary of Care Provided Yes
--- NOTE | 2024-03-01 15:02 | WC ---
03/01/2024 R ABD FOLD (1) R ABD FOLD (2)
--- NOTE | 2024-03-03 11:19 | PCM.WC.HP ---
History of Present Illness Date of Service: 03/01/24 Chief Complaint: Ulcers on right lower abdomen/pannus History of Wound: 49 year old female, who is known to me, presents with two ulcer on her right lower abdomen on the most dependent portion of her pannus. She states that she noticed them about a month ago. She has been seen by her PCP, who did a wound culture. Patient states the culture showed staph but not MRSA. She is currently taking Bactrim. She has been covering these areas with dry gauze. She states that the gauze often falls off because of where the ulcers are located. She states she has been recently diagnosed with prediabetes. She smokes cigarettes. She has a history of a work related injury to her left index finger, she also has history COPD, migraines, anxiety. Today she denies fever, chills, nausea or vomiting. Progress of Wound: Two ulcers on her right lower pannus on the them most dependent portion of her abdomen. The skin surrounding the ulcers is dimpling and is slightly firm, most likely caused by edema/fluid in this dependent portion of her abdomen. The larger right lower superior abdomen ulcer has a pink wound bed, it appears slightly dry. Right inferior lower abdomen ulcer is small, almost healed with a nice pink wound bed. [facility] Medical History Anxiety Arthritis Asthma Carpal tunnel syndrome Chronic cough Crushing injury of finger, left Depression Finger osteomyelitis, left Gastric reflux GERD (gastroesophageal reflux disease) History of back problems History of irregular heartbeat Hx of blood diseases Hx of migraines Hypertension IBS (irritable bowel syndrome) Laceration of extensor structure of left index finger at hand level Laceration of left index finger w/o foreign body w/o damage to nail Laceration without foreign body of left index finger without damage to nail, sequela Muscle spasm Pressure ulcer of unspecified site, unspecified stage Seasonal allergies Shortness of breath on exertion Skin necrosis Skin ulcer of finger Smoker Smoker UTI (urinary tract infection) Wears glasses Work related injury Home Medications clonazepam 0.5 mg tablet 0.5 mg PO Q4H PRN PRN Anxiety 04/14/18 [History Last Taken Unknown] duloxetine 60 mg capsule,delayed release 60 mg PO DAILY ANXIETY 04/14/18 [History Last Taken 05/03/23] oxybutynin chloride 15 mg tablet,extended release 24 hr (Ditropan XL) 15 mg PO DAILY urine 04/14/18 [History Last Taken 05/06/23] valacyclovir 500 mg tablet (Valtrex) 500 mg PO DAILY herpes 04/14/18 [History Last Taken 05/06/23] albuterol sulfate 90 mcg/actuation aerosol inhaler (ProAir HFA) 2 puff inhalation Q6H PRN ASTHMA 06/08/21 [History Last Taken Unknown] cetirizine 10 mg capsule (Zyrtec) 10 mg PO DAILY PRN ALLERGIES 06/08/21 [History Last Taken 05/06/23] topiramate 25 mg tablet (Topamax) 25 mg PO BID 06/08/21 [History Last Taken 05/06/23] metoprolol tartrate 25 mg tablet 25 mg PO DAILY 05/02/23 [History Last Taken 05/07/23] meloxicam 7.5 mg tablet 7.5 mg PO DAILY 05/05/23 [History Last Taken 05/06/23] nifedipine 30 mg tablet,extended release 24 hr (Procardia XL) 30 mg PO DAILY 30 days #30 tabs 06/24/23 [Rx Last Taken Unknown] gabapentin 300 mg capsule See Rx Instructions .Route .COMPLEX #60 caps 12/18/23 [Rx Last Taken Unknown] metronidazole 1 %-mupirocin 2 % topical ointment ea topical 01/22/24 [History Last Taken Unknown] sulfamethoxazole 400 mg-trimethoprim 80 mg tablet (Bactrim) 1 tab PO BID 01/22/24 [History Last Taken Unknown] amitriptyline 10 mg tablet 10 mg PO QHS 30 days #30 tabs 01/23/24 [Rx Last Taken Unknown] gabapentin 300 mg capsule 300 mg PO BID 30 days #60 caps 02/17/24 [Rx Last Taken Unknown] Allergy/AdvReac Type Severity Reaction Status Date / Time No Known Allergies Allergy Verified 01/22/24 14:15 Family History Other Alcoholism Anxiety Arthritis COPD (chronic obstructive pulmonary disease) CVA (cerebral vascular accident) Clotting disorder Depression Diabetes Hypertension Surgical History History of foot surgery History of hand surgery History of hip replacement History of tubal ligation Hx of section Hx of dilation and curettage Social History Smoking Status: Current every day smoker tobacco type: cigarettes Tobacco: How many years used: 30 alcohol intake: current Alcohol type: beer and wine details: Casual substance use type: unknown ROS Constitutional Constitutional: Denies chills or fever(s) Eyes Eyes: Reports none ENT HEENT: Reports none Cardiovascular Cardiovascular: Denies chest pain or dyspnea Respiratory/Chest Respiratory/Chest: Reports as per HPI Gastrointestinal Gastrointestinal: Reports none Musculoskeletal Musculoskeletal: Reports joint stiffness Integumentary Integumentary: Reports skin ulcer Neurologic Neurologic: Reports none Psychiatric Psychiatric: Reports as per HPI Endocrine Endocrinology: Reports as per HPI Vital Signs Vital Signs Vital Signs: Weight Weight: 240 lb Body Mass Index (BMI) 43.9 Physical Exam Const alert, oriented x3 and no apparent distress General Appearance: cooperative HEENT normocephalic Head and Scalp: atraumatic Eyes General Eye: normal appearance of both eyes Neck full ROM Lymph Lymphatic: no lymphedema noted Resp normal respiratory effort, normal air movement and clear to auscultation bilaterally Effort and Inspection: able to speak in complete sentences Cardio regular rate and regular rhythm GI soft to palpation and non-tender Auscultation: normoactive bowel sounds Back/Spine normal ROM Extremity normal capillary refill Peripheral Pulses: Yes pulses 2+ throughout Skin Wound Narrative: Two ulcers on her right lower pannus on the them most dependent portion of her abdomen. The skin surrounding the ulcers is dimpling and is slightly firm, most likely caused by edema/fluid in this dependent portion of her abdomen. The larger right lower superior abdomen ulcer has a pink wound bed, it appears slightly dry. Right inferior lower abdomen ulcer is small, almost healed with a nice pink wound bed. Neuro oriented x3 and moves all extremities Psych mental status grossly normal, cooperative, affect normal and speech normal Debridement Note Debridement Note Wound debrided: #1 right lower abdomen-superior ulcer Laterality: Right Wound Grade/Stage: Stage III Type of Debridement: Excisional debridement Anesthesia Used: 5% Lidocaine Gel Depth: Down to and including healthy tissue and in the subcutaneous layer Percentage of wound debrided: 100 Instrument Used: 5mm curette Tissue Removed: Non viable tissue and slough Severity: Fat Layer Exposed Amount of bleeding with debridement: Mild Bleeding Controlled with: Pressure and Compression and gauze Patient tolerated procedure: Patient tolerated procedure well Additional Wound Wound debrided: #2 Right abdomen inferior ulcer Laterality: Right Wound Grade/Stage: Stage II Type of Debridement: Excisional debridement Anesthesia Used: 5% Lidocaine Gel Depth: Down to and including healthy tissue and in the subcutaneous layer Percentage of wound debrided: 100 Instrument Used: 3mm curette Tissue Removed: Non viable tissue and slough Severity: Fat Layer Exposed Amount of bleeding with debridement: Mild Bleeding Controlled with: Compression and gauze Patient tolerated procedure: Patient tolerated procedure well Charges/Coding Visit Charges Office Visits / Consults: 51574 OV L3 Est 20min (25 modifier) Procedures Integumentary [id number]: [id number] Anastasiya subq tissue 20 sq cm/< Assessment/Plan Assessment/Plan (1) Skin ulcer of abdominal wall with fat layer exposed: CODE(S): L98.492 - Non-pressure chronic ulcer of skin of other sites with fat layer exposed (2) Prediabetes: CODE(S): R73.03 - Prediabetes (3) Smoker: CODE(S): F17.200 - Nicotine dependence, unspecified, uncomplicated PLAN: Plan Patient evaluated at the wound healing center. Wound care - Moistened Marie covered with gauze/ABD daily after washing with soap and water. No wound culture obtained since she is still on Bactrim prescribed from her PCP. Encouraged patient to stop smoking as it may have deleterious effects on wound healing. Follow up one week.
== END 2024-03-02 23:59 | disposition home or self-care (01) ==
LOC: WC 09:56
PROVIDERS: PCP Family Medicine; Referring Provider Family Medicine; Visit Provider Nurse Practitioner Family
DX: L98.492 Non-pressure chronic ulcer of skin of other sites with fat layer exposed (principal); J44.9 Chronic obstructive pulmonary disease, unspecified; F17.210 Nicotine dependence, cigarettes, uncomplicated; R73.03 Prediabetes; F41.9 Anxiety disorder, unspecified; I10 Essential (primary) hypertension; Z79.899 Other long term (current) drug therapy; E65 Localized adiposity
CPT/HCPCS: 11042; 99213; G0463

== ENCOUNTER 2024-03-08 14:45 | Outpatient (RCR) | payer MEDICAID, SELFPAY ==
[2024-03-03 00:57] VITALS: BP 150/83; PULSE 80; TEMP 36.9; BMI 43.9
[2024-03-08 14:51] VITALS: BP 139/93; PULSE 73; RESP 18; TEMP 35.8; BMI 43.9
--- NOTE | 2024-03-08 16:19 | PCM.WC.PN ---
History of Present Illness Date of Service: 03/08/24 Chief Complaint: Ulcers on right lower abdomen/pannus History of Wound: 49 year old female, who is known to me, presents with two ulcer on her right lower abdomen on the most dependent portion of her pannus. She states that she noticed them about a month ago. She has been seen by her PCP, who did a wound culture. Patient states the culture showed staph but not MRSA. She is currently taking Bactrim. She has been covering these areas with dry gauze. She states that the gauze often falls off because of where the ulcers are located. She states she has been recently diagnosed with prediabetes. She smokes cigarettes. She has a history of a work related injury to her left index finger, she also has history COPD, migraines, anxiety. Today she denies fever, chills, nausea or vomiting. Progress of Wound: Right lower superior abdomen ulcer has a beefy pink wound bed, it is smaller in size. Right inferior ulcer is healed today. She denies any issues with the dressing changes. Objective Data Objective Data Vital Signs: Vital Signs Temp Pulse Resp BP O2 Del Method 96.4 F L 73 18 139/93 H Room Air 03/08/24 14:51 03/08/24 14:51 03/08/24 14:51 03/08/24 14:51 03/08/24 14:51 Oxygen Delivery Method Room Air Weight: 240 lb Body Mass Index (BMI) 43.9 Charges/Coding Procedures Integumentary [id number]: [id number] Anastasiya subq tissue 20 sq cm/< Debridement Note Debridement Note Wound debrided: #1 right lower abdomen-superior ulcer Laterality: Right Wound Grade/Stage: Stage III Type of Debridement: Excisional debridement Anesthesia Used: 5% Lidocaine Gel Depth: Down to and including healthy tissue and in the subcutaneous layer Percentage of wound debrided: 100 Instrument Used: 5mm curette Tissue Removed: Non viable tissue and slough Severity: Fat Layer Exposed Amount of bleeding with debridement: Mild Bleeding Controlled with: Pressure and Compression and gauze Patient tolerated procedure: Patient tolerated procedure well Post-Debridement Measurements and Additional Note: Post-Debridement Measurements/Treatment LICO - Nurse 1 - General Ulcer Assessment Start: 03/08/24 14:51 Freq: Status: Active Protocol: TEENA Activity Type Activity Date Activity User E-sign Co-sign Detail Recorded Client Recorded Date Recorded By Document 03/08/24 14:51 [employer] Desktop 03/08/24 14:58 03/08/24 14:51 WC - Today's Visit Information Type of service Follow-up Visit (Physician/FORMULA WEIGHER ),Nurse-only Visit Arrival Mode Ambulatory Patient Identification Verified (Name & Yes ) Height and Weight Body Mass Index (BMI) 43.9 BMI Classification Obese Vital Signs Temperature (97.8 F-99.1 F) 96.4 F L Temperature Source Temporal Pulse Rate (60-100) 73 Pulse Location Monitor Respiratory Rate (12-18) 18 Respiratory rate source Observation Oxygen Delivery Method Room Air Blood Pressure (90/60-120/80) 139/93 H Blood Pressure Mean (mm Hg) 108 Source Monitor Position Sitting Blood Pressure Location Right Arm History Since Last Visit- (Skip if this is Patient's initial visit) Have you changed medications since your No last visit? Any new allergies or adverse reactions No Had a fall/change in ADL's that may No increase risk of falls Signs or symptoms of abuse and/or No neglect since last visit Have you been in the hospital since your No last visit? Has dressing in place as prescribed Yes Has compression in place as prescribed N/A Has offloadiing in place as prescribed N/A Experienced any changes in pain level or No management Left Footwear Regular Shoe Right Footwear Regular Shoe Pain Scale: 0-10 Numeric Is Patient Pain Free? Yes - Nurse 1 - General Ulcer Measurement Start: 03/08/24 14:51 Freq: Status: Active Protocol: Activity Type Activity Date Activity User E-sign Co-sign Detail Recorded Client Recorded Date Recorded By Document 03/08/24 14:51 [email or web address] 03/08/24 14:58 03/08/24 14:51 Wound Center Nurse 1 #2 right abd inf -Combined with other wound No -Current Size (cm) - Length 1.1 -Current Size (cm) - Width 2.1 -Current Size (cm) - Depth 0.1 -Total Square Cm 2.31 -Epithelialization Medium 34-66% -Tunneling No -Undermining/Tunneling No -Circular Undermining No -Exudate Amt Medium -Exudate Type Serosanguineous -Wound Margin Distinct, Outline Attached -Granulation Amt Large (67-100%) -Granulation Quality Red -Slough/Fibrin Yes -Necrosis Amt Small (1-33%) -Necrotic Tissue Type Adherent Slough -Texture (Abimbola-wound Skin Appearance) Assessed, Scarring -Moisture (Abimbola-wound Skin Appearance) Assessed -Color (Abimbola-wound Skin Appearance) Assessed -Temperature (Abimbola-wound Skin No Abnormality Appearance) (Pt Warm) -Tenderness on Palpation (Abimbola-wound No Skin Appearance) -Ulcer Cleansing Rinsed/ Irrigated with Saline -Foul Odor after Cleansing No -Anesthetic Used 5% Lidocaine Gel #1 superior abd- right -Combined with other wound No -Current Size (cm) - Length 0 -Current Size (cm) - Width 0 -Current Size (cm) - Depth 0 -Total Square Cm 0 -Epithelialization Large 67-100% LICO - Nurse 2 - General Ulcer CM Notes Start: 03/08/24 14:51 Freq: Status: Active Protocol: Activity Type Activity Date Activity User E-sign Co-sign Detail Recorded Client Recorded Date Recorded By Document 03/08/24 15:32 Desktop 03/08/24 15:35 03/08/24 15:32 Wound Center Nurse 2 #2 right abd inf -Time 15:32 -Correct Patient Yes -Correct Side, Site, Position Yes -Wound/Ulcer Outcome Healed- Epithelialized #1 superior abd- right -Time 15:33 -Correct Patient Yes -Correct Side, Site, Position Yes -Correct Procedure Yes -Procedure Performed Yes -Type of Procedure Debridement -Clinical Debridement Subcutaneous -Tissue Removed Subcutaneous -Post Debridement (cm) - Length 1.2 -Post Debridement (cm) - Width 0.2 -Post Debridement (cm) - Depth 0.1 -Total Square (Post) (cm) 0.24 -Area of Debridement (cm) - Length 1.2 -Area of Debridement (cm) - Width 0.2 -Total Square (Area) (cm) 0.24 -Tunneling No -Undermining/Tunneling No -Circular Undermining No -Ulcer Cleansing Rinsed/ Irrigated with Saline -Foul Odor after Cleansing No -Bioengineered Tissue No -Bleeding Controlled with Pressure -Treatment Response Procedure Tolerated Well -Debridement - Subq, 1st 20sq cm Yes Pain Scale: 0-10 Numeric Is Patient Pain Free? Yes LICO - Nurse 3 - General Ulcer D/C NN Start: 03/08/24 14:51 Freq: Status: Active Protocol: Activity Type Activity Date Activity User E-sign Co-sign Detail Recorded Client Recorded Date Recorded By Document 03/08/24 15:39 KW Desktop 03/08/24 15:39 KW 03/08/24 15:39 Wound Care Center Nurse 3 #2 right abd inf -Primary Dressing Applied Promogran Marie Matter -Primary Dressing Covered/Secured with Dry Gauze, Secured with Tape -Promogran Marie Matter 1 Pain Scale: 0-10 Numeric Is Patient Pain Free? Yes WC - Visit Discharge Discharge Condition Stable Ambulatory Status Ambulatory Transportation Private Auto Medication Reconcilliation completed & No provided to patient/care provider Clinical Summary of Care Provided Yes Assessment/Plan Assessment/Plan (1) Skin ulcer of abdominal wall with fat layer exposed: CODE(S): L98.492 - Non-pressure chronic ulcer of skin of other sites with fat layer exposed (2) Prediabetes: CODE(S): R73.03 - Prediabetes (3) Smoker: CODE(S): F17.200 - Nicotine dependence, unspecified, uncomplicated PLAN: Plan Patient evaluated at the wound healing center. Wound care - Moistened Marie covered with gauze/ABD daily after washing with soap and water. No wound culture obtained since she is still on Bactrim prescribed from her PCP. She completed her bactrim. Encouraged patient to stop smoking as it may have deleterious effects on wound healing. Follow up two weeks.
== END 2024-04-02 23:59 | disposition home or self-care (01) ==
LOC: WC 14:45
PROVIDERS: PCP Family Medicine; Referring Provider Family Medicine; Visit Provider Nurse Practitioner Family
DX: L98.492 Non-pressure chronic ulcer of skin of other sites with fat layer exposed (principal); J44.9 Chronic obstructive pulmonary disease, unspecified; F17.210 Nicotine dependence, cigarettes, uncomplicated; R73.03 Prediabetes
CPT/HCPCS: 11042

== ENCOUNTER 2024-05-31 12:57 | Outpatient (RCR) | payer MEDICAID, SELFPAY ==
[2024-04-03 01:14] VITALS: BP 150/83; PULSE 80; RESP 18; TEMP 36.9; BMI 43.9
[2024-05-31 13:29] VITALS: BP 115/82; PULSE 68; RESP 18; TEMP 35.9; BMI 45.7
--- NOTE | 2024-05-31 15:30 | HP.PCM_ITS ---
History of Present Illness Date of Service: 05/31/24 Chief Complaint: Ulcers on right lower abdomen/pannus History of Wound: 49 year old female, who is known to me, presents with multiple lesions that stared about a week ago. They are located on her right axilla, left breast, left lateral abdominal crease, mid abdomen and right buttocks. She states they started like a pimple and then scabbed over. They are very painful. She has not seen anyone else about these. She has not been putting anything on them. She smokes cigarettes. She is concerned that it could be hidradenitis suppurativa, she has a family history of it. She has a history of a work related injury to her left index finger, she also has history recent onset DM, COPD, migraines, anxiety. Today she denies fever, chills, nausea or vomiting. Progress of Wound: She has multiple lesions that stared about a week ago. They are located on her right axilla, left breast, left lateral abdominal crease, mid abdomen and right buttocks. She states they started like a pimple and then scabbed over. They are very painful. The left breast and left lateral side are larger into the subcutaneous tissue. A wound culture was obtained today of those two areas.?The other areas have very dry scabs that are acting as biologic dressings. 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 Muscle spasm Pressure ulcer of unspecified site, unspecified stage Finger osteomyelitis, left Wears glasses Depression Hx of blood diseases Gastric reflux Shortness of breath on exertion Smoker Chronic cough History of irregular heartbeat Laceration without foreign body of left index finger without damage to nail, sequela Skin necrosis Skin ulcer of finger Seasonal allergies Carpal tunnel syndrome History of back problems UTI (urinary tract infection) Hx of migraines Anxiety IBS (irritable bowel syndrome) GERD (gastroesophageal reflux disease) Work related injury Smoker Crushing injury of finger, left Laceration of extensor structure of left index finger at hand level Laceration of left index finger w/o foreign body w/o damage to nail Asthma Arthritis Hypertension Home Medications ?Medication ?Instructions ?Recorded ?Last Taken ?Type clonazepam 0.5 mg tablet 0.5 mg PO Q4H PRN PRN Anxiety 04/14/18 Unknown History duloxetine 60 mg capsule,delayed 60 mg PO DAILY ANXIETY 04/14/18 05/03/23 History release oxybutynin chloride 15 mg 15 mg PO DAILY urine 04/14/18 05/06/23 History tablet,extended release 24 hr (Ditropan XL) valacyclovir 500 mg tablet 500 mg PO DAILY herpes 04/14/18 05/06/23 History (Valtrex) albuterol sulfate 90 mcg/actuation 2 puff inhalation Q6H PRN ASTHMA 06/08/21 Unknown History aerosol inhaler (ProAir HFA) cetirizine 10 mg capsule (Zyrtec) 10 mg PO DAILY PRN ALLERGIES 06/08/21 05/06/23 History topiramate 25 mg tablet (Topamax) 25 mg PO BID 06/08/21 05/06/23 History metoprolol tartrate 25 mg tablet 25 mg PO DAILY 05/02/23 05/07/23 History meloxicam 7.5 mg tablet 7.5 mg PO DAILY 05/05/23 05/06/23 History nifedipine 30 mg tablet,extended 30 mg PO DAILY 30 days #30 tabs 06/24/23 Unknown Rx release 24 hr (Procardia XL) gabapentin 300 mg capsule See Rx Instructions .Route 12/18/23 Unknown Rx .COMPLEX #60 caps metronidazole 1 %-mupirocin 2 % ea topical 01/22/24 Unknown History topical ointment sulfamethoxazole 400 1 tab PO BID 01/22/24 Unknown History mg-trimethoprim 80 mg tablet (Bactrim) gabapentin 300 mg capsule 300 mg PO BID 30 days #60 caps 04/19/24 Unknown Rx cefadroxil 500 mg capsule 500 mg PO BID 14 days #28 caps 05/31/24 Unknown Rx doxycycline monohydrate 100 mg 100 mg PO BID 14 days #28 tabs 05/31/24 Unknown Rx tablet Allergy/AdvReac Type Severity Reaction Status Date / Time fluticasone (From Advair Allergy Intermediate Chest Verified 05/31/24 13:24 Diskus) tightness salmeterol (From Advair Allergy Intermediate Chest Verified 05/31/24 13:24 Diskus) tightness Family History Other Alcoholism Anxiety Arthritis COPD (chronic obstructive pulmonary disease) CVA (cerebral vascular accident) Clotting disorder Depression Diabetes Hypertension Surgical History History of hand surgery Hx of dilation and curettage Hx of section History of tubal ligation History of hip replacement History of foot surgery Social History Smoking Status: Current every day smoker tobacco type: cigarettes Tobacco: How many years used: 30 alcohol intake: current Alcohol type: beer and wine details: Casual substance use type: unknown Vital Signs Vital Signs Vital Signs: 05/31/24 13:29 Temperature 96.6 F L Temperature Source Temporal Pulse Rate 68 Respiratory Rate 18 Blood Pressure 115/82 H Blood Pressure Mean 93 Blood Pressure Source Monitor Blood Pressure Position Semi-Fowlers Blood Pressure Location Left Arm Oxygen Delivery Method Room Air Weight Weight: 250 lb Body Mass Index (BMI) 45.7 Debridement Note Debridement Note Post-Debridement Measurements and Additional Note: Post-Debridement Measurements/Treatment - Nurse 1 - General Ulcer Assessment Start: 05/31/24 13:29 Freq: Status: Active Protocol: LICO.NAVJOT Activity Type Activity Date Activity User E-sign Co-sign Detail Recorded Client Recorded Date Recorded By Document 05/31/24 13:29 KW fg\ 05/31/24 13:49 KW 05/31/24 13:29 - Today's Visit Information Type of service Initial Visit Arrival Mode Ambulatory Patient Identification Verified (Name & Yes ) Height and Weight Height 5 ft 2 in Weight 250 lb Weight in Pounds 250.0 lbs Weight Measurement Method Estimated by Patient Body Mass Index (BMI) 45.7 BMI Classification Obese BSA - [place]ell 2.10 Vital Signs Temperature (97.8 F-99.1 F) 96.6 F L Temperature Source Temporal Pulse Rate (60-100) 68 Pulse Location Monitor Respiratory Rate (12-18) 18 Respiratory rate source Observation Oxygen Delivery Method Room Air Blood Pressure (90/60-120/80) 115/82 H Blood Pressure Mean 93 Source Monitor Position Semi-Fowlers Blood Pressure Location Left Arm History Since Last Visit- (Skip if this is Patient's initial visit) Left Footwear Regular Shoe Right Footwear Regular Shoe Pain Scale: 0-10 Numeric Is Patient Pain Free? Yes WC - Nurse 1 - General Ulcer Measurement Start: 05/31/24 13:29 Freq: Status: Active Protocol: Activity Type Activity Date Activity User E-sign Co-sign Detail Recorded Client Recorded Date Recorded By Document 05/31/24 13:29 KW fg\ 05/31/24 13:49 KW 05/31/24 13:29 Wound Center Nurse 1 #7 RT BUTTOCK -Current Size (cm) - Length 0.5 -Current Size (cm) - Width 0.5 -Current Size (cm) - Depth 0.1 -Total Square Cm 0.25 -Date of Last Picture (Recall this 05/31/24 field) -Exudate Amt Small -Exudate Type Serosanguineous -Wound Margin Distinct, Outline Attached -Granulation Amt Small (1-33%) -Granulation Quality Red -Necrosis Amt Large (67-100%) -Necrotic Tissue Type Eschar -Texture (Abimbola-wound Skin Appearance) Assessed -Moisture (Abimbola-wound Skin Appearance) Assessed -Color (Abimbola-wound Skin Appearance) Assessed, Erythema -Temperature (Abimbola-wound Skin No Abnormality Appearance) (Pt Warm) -Tenderness on Palpation (Abimbola-wound Yes Skin Appearance) -Ulcer Cleansing Soap and Water -Foul Odor after Cleansing No -Anesthetic Used 5% Lidocaine Gel #6 LT BREAST -Current Size (cm) - Length 2.1 -Current Size (cm) - Width 2.4 -Current Size (cm) - Depth 0.1 -Total Square Cm 5.04 -Date of Last Picture (Recall this 05/31/24 field) -Exudate Amt Medium -Exudate Type Serosanguineous -Wound Margin Distinct, Outline Attached -Necrosis Amt Large (67-100%) -Necrotic Tissue Type Adherent Slough -Texture (Abimbola-wound Skin Appearance) Assessed -Moisture (Abimbola-wound Skin Appearance) Assessed -Color (Abimbola-wound Skin Appearance) Assessed, Erythema -Temperature (Abimbola-wound Skin No Abnormality Appearance) (Pt Warm) -Tenderness on Palpation (Abimbola-wound Yes Skin Appearance) -Ulcer Cleansing Soap and Water -Foul Odor after Cleansing No -Anesthetic Used 5% Lidocaine Gel #5 LT ABD CREASE CLUSTER -Current Size (cm) - Length 1.7 -Current Size (cm) - Width 3.2 -Current Size (cm) - Depth 0.2 -Total Square Cm 5.44 -Date of Last Picture (Recall this 05/31/24 field) -Exudate Amt Medium -Exudate Type Serosanguineous -Wound Margin Distinct, Outline Attached -Necrosis Amt Large (67-100%) -Necrotic Tissue Type Adherent Slough -Texture (Abimbola-wound Skin Appearance) Assessed -Moisture (Abimbola-wound Skin Appearance) Assessed -Color (Abimbola-wound Skin Appearance) Assessed, Erythema -Temperature (Abimbola-wound Skin No Abnormality Appearance) (Pt Warm) -Tenderness on Palpation (Abimbola-wound Yes Skin Appearance) -Ulcer Cleansing Soap and Water -Anesthetic Used 5% Lidocaine Gel #4 ABD -Current Size (cm) - Length 1 -Current Size (cm) - Width 1 -Current Size (cm) - Depth 0 -Total Square Cm 1 -Date of Last Picture (Recall this 05/31/24 field) -Exudate Amt Small -Exudate Type Serosanguineous -Wound Margin Distinct, Outline Attached -Necrosis Amt Large (67-100%) -Necrotic Tissue Type Adherent Slough -Texture (Abimbola-wound Skin Appearance) Assessed -Moisture (Abimbola-wound Skin Appearance) Assessed -Color (Abimbola-wound Skin Appearance) Assessed, Erythema -Temperature (Abimbola-wound Skin No Abnormality Appearance) (Pt Warm) -Tenderness on Palpation (Abimbola-wound Yes Skin Appearance) -Ulcer Cleansing Soap and Water -Anesthetic Used 5% Lidocaine Gel #3 RT ARMPIT -Current Size (cm) - Length 0.7 -Current Size (cm) - Width 0.5 -Current Size (cm) - Depth 0 -Total Square Cm 0.35 -Date of Last Picture (Recall this 05/31/24 field) -Exudate Amt Medium -Exudate Type Serosanguineous -Wound Margin Distinct, Outline Attached -Necrosis Amt Large (67-100%) -Necrotic Tissue Type Adherent Slough -Texture (Abimbola-wound Skin Appearance) Assessed -Moisture (Abimbola-wound Skin Appearance) Assessed -Color (Abimbola-wound Skin Appearance) Assessed, Erythema -Temperature (Abimbola-wound Skin No Abnormality Appearance) (Pt Warm) -Tenderness on Palpation (Abimbola-wound Yes Skin Appearance) -Ulcer Cleansing Soap and Water -Foul Odor after Cleansing No -Anesthetic Used 5% Lidocaine Gel WC - Nurse 2 - General Ulcer CM Notes Start: 05/31/24 13:29 Freq: Status: Active Protocol: Activity Type Activity Date Activity User E-sign Co-sign Detail Recorded Client Recorded Date Recorded By Document 05/31/24 14:12 [facility] [id number] 05/31/24 14:39 [facility] 05/31/24 14:12 Wound Center Nurse 2 #7 RT BUTTOCK -Time 14:25 -Correct Patient Yes -Correct Side, Site, Position Yes -Correct Procedure Yes -Procedure Performed Yes -Type of Procedure Debridement -Clinical Debridement Epidermis / Dermis -Tissue Removed Epidermis -Post Debridement (cm) - Length 0.5 -Post Debridement (cm) - Width 0.5 -Post Debridement (cm) - Depth 0.1 -Total Square (Post) (cm) 0.25 -Area of Debridement (cm) - Length 0.5 -Area of Debridement (cm) - Width 0.5 -Total Square (Area) (cm) 0.25 -Tunneling No -Undermining/Tunneling No -Circular Undermining No -Wound/Ulcer Outcome Not Healed -Ulcer Cleansing Rinsed/ Irrigated with Saline -Foul Odor after Cleansing No -Bioengineered Tissue No -Bleeding Controlled with Pressure -Treatment Response Procedure Tolerated Well -Debridement - Open, 1st 20sq cm No #6 LT BREAST -Time 14:27 -Correct Patient Yes -Correct Side, Site, Position Yes -Correct Procedure Yes -Procedure Performed Yes -Type of Procedure Debridement -Clinical Debridement Subcutaneous -Tissue Removed Subcutaneous -Post Debridement (cm) - Length 2 -Post Debridement (cm) - Width 2.3 -Post Debridement (cm) - Depth 0.1 -Total Square (Post) (cm) 4.6 -Area of Debridement (cm) - Length 2 -Area of Debridement (cm) - Width 2.3 -Total Square (Area) (cm) 4.6 -Tunneling No -Undermining/Tunneling No -Circular Undermining No -Wound/Ulcer Outcome Not Healed -Ulcer Cleansing Rinsed/ Irrigated with Saline -Foul Odor after Cleansing No -Bioengineered Tissue No -Bleeding Controlled with Pressure -Treatment Response Procedure Tolerated Well -Offloading No -Debridement - Subq, 1st 20sq cm Yes #5 LT ABD CREASE CLUSTER -Time 14:16 -Correct Patient Yes -Correct Side, Site, Position Yes -Correct Procedure Yes -Procedure Performed Yes -Type of Procedure Debridement -Clinical Debridement Subcutaneous -Tissue Removed Subcutaneous -Post Debridement (cm) - Length 2 -Post Debridement (cm) - Width 3.2 -Post Debridement (cm) - Depth 0.3 -Total Square (Post) (cm) 6.4 -Area of Debridement (cm) - Length 2 -Area of Debridement (cm) - Width 3.2 -Total Square (Area) (cm) 6.4 -Tunneling No -Undermining/Tunneling No -Circular Undermining No -Wound/Ulcer Outcome Not Healed -Ulcer Cleansing Rinsed/ Irrigated with Saline -Foul Odor after Cleansing No -Bioengineered Tissue No -Bleeding Controlled with Pressure -Treatment Response Procedure Tolerated Well -Debridement - Subq, 1st 20sq cm No #4 ABD -Time 14:21 -Correct Patient Yes -Correct Side, Site, Position Yes -Correct Procedure Yes -Procedure Performed Yes -Type of Procedure Debridement -Clinical Debridement Epidermis / Dermis -Tissue Removed Epidermis, Dermis -Post Debridement (cm) - Length 0.8 -Post Debridement (cm) - Width 0.8 -Post Debridement (cm) - Depth 0.1 -Total Square (Post) (cm) 0.64 -Area of Debridement (cm) - Length 0.8 -Area of Debridement (cm) - Width 0.8 -Total Square (Area) (cm) 0.64 -Tunneling No -Undermining/Tunneling No -Circular Undermining No -Wound/Ulcer Outcome Not Healed -Ulcer Cleansing Rinsed/ Irrigated with Saline -Foul Odor after Cleansing No -Bioengineered Tissue No -Bleeding Controlled with Pressure -Treatment Response Procedure Tolerated Well -Debridement - Open, 1st 20sq cm Yes #3 RT ARMPIT -Time 14:33 -Correct Patient Yes -Correct Side, Site, Position Yes -Correct Procedure Yes -Procedure Performed Yes -Type of Procedure Debridement -Clinical Debridement Subcutaneous -Tissue Removed Subcutaneous -Post Debridement (cm) - Length 0.6 -Post Debridement (cm) - Width 0.4 -Post Debridement (cm) - Depth 0.1 -Total Square (Post) (cm) 0.24 -Area of Debridement (cm) - Length 0.6 -Area of Debridement (cm) - Width 0.4 -Total Square (Area) (cm) 0.24 -Tunneling No -Undermining/Tunneling No -Circular Undermining No -Wound/Ulcer Outcome Not Healed -Ulcer Cleansing Rinsed/ Irrigated with Saline -Foul Odor after Cleansing No -Bioengineered Tissue No -Bleeding Controlled with Pressure -Treatment Response Procedure Tolerated Well -Debridement - Subq, 1st 20sq cm No Pain Scale: 0-10 Numeric Is Patient Pain Free? Yes Assessment/Plan Assessment/Plan (1) Skin ulcer of abdomen with fat layer exposed: CODE(S): L98.492 - Non-pressure chronic ulcer of skin of other sites with fat layer exposed (2) Skin ulcer of buttock with fat layer exposed: CODE(S): L98.412 - Non-pressure chronic ulcer of buttock with fat layer exposed (3) Skin ulcer with fat layer exposed: CODE(S): L98.492 - Non-pressure chronic ulcer of skin of other sites with fat layer exposed
--- NOTE | 2024-06-04 08:51 | WC ---
PHOTO 05/31/24 RIGHT ARM
--- NOTE | 2024-06-04 08:52 | WC ---
PHOTO 05/31/24 ABD
--- NOTE | 2024-06-04 08:52 | WC ---
PHOTO 05/31/24 LEFT HIP
--- NOTE | 2024-06-04 08:53 | WC ---
PHOTO 05/31/24 LEFT BREAST
--- NOTE | 2024-06-04 08:54 | WC ---
PHOTO 05/31/24 RIGHT BUTTOCKS
== END 2024-06-02 23:59 | disposition home or self-care (01) ==
LOC: WC 12:57
PROVIDERS: PCP Family Medicine; Referring Provider Nurse Practitioner Family; Visit Provider Nurse Practitioner Family
DX: L98.492 Non-pressure chronic ulcer of skin of other sites with fat layer exposed (principal); L98.412 Non-pressure chronic ulcer of buttock with fat layer exposed; J44.9 Chronic obstructive pulmonary disease, unspecified; F17.210 Nicotine dependence, cigarettes, uncomplicated; Z79.899 Other long term (current) drug therapy; R73.03 Prediabetes
CPT/HCPCS: 11042; 87070; 87075; 87077; 87186; 87205; 97597; 99213; G0463

== ENCOUNTER 2024-06-14 09:30 | Outpatient (RCR) | payer MEDICAID, SELFPAY ==
[2024-06-03 00:30] VITALS: BP 150/83; PULSE 80; RESP 18; TEMP 36.9; BMI 43.9
[2024-06-07 10:03] VITALS: BP 129/82; PULSE 69; RESP 18; TEMP 35.9; BMI 43.9
--- NOTE | 2024-06-07 10:55 | UL_PTH ---
PATIENT: ARAMIS PACE LOC: U#:[id number] AGE/SX: 49/F ROOM: RE06/14/[address]: SAURABH Knowles : 1975 BED: DIS: 07/03/2024 SPEC #: [id number] RECD: 06/07/24 13:59 STATUS: DELMAR PEYTON #: [id number] [place]: 06/07/24 10:[address]: Letha Bob NP DEPT: SURGICAL PATHOLOGY RECD BY: Teressa Gonsales ENTERED: 06/08/24 10:53 SP TYPE: ULCER OTHR DR: Nery Weinberg PA-C Tissues: ULCER Procedures: Special Stain Group I Surgery Specimen Level III GMS Stain (control) HEADER OPERATION: Left tissue excised from left breast wound PRE-OP DIAGNOSIS: Non-healing wound TISSUE SUBMITTED: Tissue biopsy left breast ulcer Ischemic Time: 1 minute Fixation Time: 8 hours MICROSCOPIC DIAGNOSIS Left breast ulcer, biopsy: Granulation with chronic inflammation. Fragment of skin with hyperkeratosis and parakeratosis. No evidence of malignancy. Negative for fungal organisms. Ingrid 06/09/2024 COMMENT GMS stain with matched control was used in the evaluation of this case. Case has been reviewed in consultation with Dr. Cash who concurs with the above diagnosis. IDC:SAMI MICROSCOPIC DESCRIPTION Slides are reviewed. GROSS DESCRIPTION Received in fixative is one container labeled with the patient's name and designated Left breast. The specimen consists of two pieces of skin with soft tissue measuring in aggregate 1.0 x 0.6 x 0.2cm. The entire specimen is submitted in one cassette. Belkys 06/08/2024 TC:3 CPT:51713
--- NOTE | 2024-06-07 17:32 | PN.PCM_ITS ---
History of Present Illness Date of Service: 06/07/24 Chief Complaint: Ulcers on Left breast, left abdomen, mid abdomen, right b uttocks and right axilla History of Wound: History of Wound: 49 year old female, who is known to me, presents with multiple lesions that stared about a week ago. They are located on her right axilla, left breast, left lateral abdominal crease, mid abdomen and right buttocks. She states they started like a pimple and then scabbed over. They are very painful. She has not seen anyone else about these. She has not been putting anything on them. She smokes cigarettes. She is concerned that it could be hidradenitis suppurativa, she has a family history of it. She has a hi story of a work related injury to her left index finger, she also has history recent onset DM, COPD, migraines, anxiety. Today she denies fever, chills, nausea or vomiting. Progress of Wound: She has multiple lesions that stared about a week ago. They are located on her right axilla, left breast, left lateral abdominal crease, mid abdomen and right buttocks. She states they started like a pimple and then scabbed over. They are very painful. The left breast and left lateral side are larger into the subcutaneous tissue. The other areas have very dry scabs that are acting as biologic dressings. Wound cultures obtained on 05/31/24. Left breast wound culture was positive for Staphylococcus aureus, Staphylococcus epidermidis, Corynebacterium amycolatum, and Anaerobic cocci. The left lateral abdominal ulcer in skin fold was positive for Pseudomonas putida, Staphylococcus epidermidis, Staphylococcus epidermidis #2, Corynebacterium amycolatum, and Anaerobic cocci. She was started on Augmentin and Cipro. Today she denies fever, chills, nausea, vomiting. Progress of Wound: She has multiple lesions. She was ordered Santyl but her insurance would not approve it. She has been using moistened Jake on these areas. They are located on her right axilla, left breast, left lateral abdominal crease, mid abdomen and right buttocks. She states they started like a pimple and then scabbed over. The left breast had a thick layer of non viable tissue present. Left lateral side in skin fold is stable. The right axilla, mid abdomen, right buttock scabbing has softened and able to remove the scabbing. They almost have a fibrous appearance under the scabbing, very superficial. Wound culture obtained last week of the left breast and left lateral abdominal skin fold. Left breast wound culture was positive for Staphylococcus aureus, Staphylococcus epidermidis, Corynebacterium amycolatum, and Anaerobic cocci. The left lateral abdominal ulcer in skin fold was positive for Pseudomonas putida, Staphylococcus epidermidis, Staphylococcus epidermidis #2, Corynebacterium amycolatum, and Anaerobic cocci. She was started on Augmentin and Cipro. Objective Data Objective Data Vital Signs: Vital Signs Temp Pulse Resp BP 96.6 F L 69 18 129/82 H 06/07/24 10:03 06/07/24 10:03 06/07/24 10:03 06/07/24 10:03 Weight: 240 lb Body Mass Index (BMI) 43.9 Charges/Coding Procedures Integumentary 111xxx-113xx: 98607 Anastasiya subq tissue 20 sq cm/< Multi Select Codes Integumentary Integumentary CPT Codes: 19934 Drainage of skin abscess (Skin biopsy of left breast ulcer) Debridement Note Debridement Note Wound debrided: #6 left breast Laterality: Left Wound Grade/Stage: Stage III Type of Debridement: Excisional debridement Anesthesia Used: 5% Lidocaine Gel Depth: Down to and including healthy tissue and in the subcutaneous layer Percentage of wound debrided: 100 Instrument Used: Forceps and - (Sharp scissors) Tissue Removed: Nonviable tissue and slough Severity: Fat Layer Exposed Amount of bleeding with debridement: Mild Bleeding Controlled with: Pressure and Compression and gauze Debridement Free Text: Nonviable tissue and slough was removed initially with pickups and scissors. Verbal consent obtained to get a biopsy to send to pathology. Numbed area with 1% lidocaine and epi, 8cc. After waiting a few minutes to obtain full numbness, used a 5 mm punch biopsy on the edge of the wound to get a specimen sent to pathology. Pressure was held to control bleeding. Patient tolerated procedure well. Post-Debridement Measurements and Additional Note: Post-Debridement Measurements/Treatment LICO - Nurse 1 - General Ulcer Assessment Start: 06/07/24 10:03 Freq: Status: Active Protocol: LICO.LOWEXT Activity Type Activity Date Activity User E-sign Co-sign Detail Recorded Client Recorded Date Recorded By Document 06/07/24 10:03 DL [id number] 06/07/24 10:13 DL 06/07/24 10:03 WC - Today's Visit Information Type of service Follow-up Visit (Physician/BRIMMER BLOCKER ) Arrival Mode Ambulatory Transfer Assistance None Patient Identification Verified (Name & Yes ) Patient Requires Transmission-Based No Precautions Height and Weight Body Mass Index (BMI) 43.9 BMI Classification Obese Vital Signs Temperature (97.8 F-99.1 F) 96.6 F L Temperature Source Temporal Pulse Rate (60-100) 69 Pulse Location Monitor Respiratory Rate (12-18) 18 Respiratory rate source Observation Blood Pressure (90/60-120/80) 129/82 H Blood Pressure Mean (mm Hg) 97 Source Monitor History Since Last Visit- (Skip if this is Patient's initial visit) Have you changed medications since your No last visit? Any new allergies or adverse reactions No Had a fall/change in ADL's that may No increase risk of falls Signs or symptoms of abuse and/or No neglect since last visit Have you been in the hospital since your No last visit? Has dressing in place as prescribed Yes Has compression in place as prescribed N/A Has offloadiing in place as prescribed N/A Experienced any changes in pain level or No management Pain Scale: 0-10 Numeric Is Patient Pain Free? Yes - Nurse 1 - General Ulcer Measurement Start: 06/07/24 10:03 Freq: Status: Active Protocol: Activity Type Activity Date Activity User E-sign Co-sign Detail Recorded Client Recorded Date Recorded By Document 06/07/24 10:03 DL 10..25.7 06/07/24 10:13 DL 06/07/24 10:03 Wound Center Nurse 1 #7 RT BUTTOCK -Current Size (cm) - Length 0.7 -Current Size (cm) - Width 0.7 -Current Size (cm) - Depth 0.1 -Total Square Cm 0.49 -Granulation Amt None Present (0 %) -Necrosis Amt Large (67-100%) -Necrotic Tissue Type Adherent Slough -Texture (Abimbola-wound Skin Appearance) Assessed -Moisture (Abimbola-wound Skin Appearance) Assessed -Color (Abimbola-wound Skin Appearance) Assessed -Temperature (Abimbola-wound Skin No Abnormality Appearance) (Pt Warm) -Tenderness on Palpation (Abimbola-wound No Skin Appearance) -Ulcer Cleansing Rinsed/ Irrigated with Saline -Foul Odor after Cleansing No -Anesthetic Used 5% Lidocaine Gel #6 LT BREAST -Current Size (cm) - Length 2.7 -Current Size (cm) - Width 1.5 -Current Size (cm) - Depth 0.1 -Total Square Cm 4.05 -Exudate Amt Medium -Exudate Type Serosanguineous -Wound Margin Distinct, Outline Attached -Granulation Amt None Present (0 %) -Necrosis Amt Large (67-100%) -Necrotic Tissue Type Adherent Slough -Texture (Abimbola-wound Skin Appearance) Assessed -Moisture (Abimbola-wound Skin Appearance) Assessed -Color (Abimbola-wound Skin Appearance) Assessed -Temperature (Abimbola-wound Skin No Abnormality Appearance) (Pt Warm) -Tenderness on Palpation (Abimbola-wound Yes Skin Appearance) -Ulcer Cleansing Rinsed/ Irrigated with Saline -Foul Odor after Cleansing No -Anesthetic Used 5% Lidocaine Gel #5 LT ABD CREASE CLUSTER -Current Size (cm) - Length 2.8 -Current Size (cm) - Width 1.7 -Current Size (cm) - Depth 0.2 -Total Square Cm 4.76 -Exudate Amt Small -Exudate Type Serosanguineous -Wound Margin Distinct, Outline Attached -Granulation Amt Medium (34-66%) -Granulation Quality Red -Necrosis Amt Medium (34-66%) -Necrotic Tissue Type Adherent Slough -Texture (Abimbola-wound Skin Appearance) Assessed -Moisture (Abimbola-wound Skin Appearance) Assessed -Color (Abimbola-wound Skin Appearance) Assessed -Temperature (Abimbola-wound Skin No Abnormality Appearance) (Pt Warm) -Tenderness on Palpation (Abimbola-wound Yes Skin Appearance) -Ulcer Cleansing Rinsed/ Irrigated with Saline #4 ABD -Current Size (cm) - Length 0.7 -Current Size (cm) - Width 0.7 -Current Size (cm) - Depth 0.1 -Total Square Cm 0.49 -Exudate Amt Small -Exudate Type Serosanguineous -Wound Margin Distinct, Outline Attached -Granulation Amt None Present (0 %) -Necrotic Tissue Type Adherent Slough -Texture (Abimbola-wound Skin Appearance) Assessed -Moisture (Abimbola-wound Skin Appearance) Assessed -Color (Abimbola-wound Skin Appearance) Assessed -Temperature (Abimbola-wound Skin No Abnormality Appearance) (Pt Warm) -Tenderness on Palpation (Abimbola-wound Yes Skin Appearance) -Ulcer Cleansing Rinsed/ Irrigated with Saline -Foul Odor after Cleansing No -Anesthetic Used 5% Lidocaine Gel #3 RT ARMPIT -Current Size (cm) - Length 0.1 -Current Size (cm) - Width 0.1 -Current Size (cm) - Depth 0.1 -Total Square Cm 0.01 -Exudate Amt Small -Exudate Type Serosanguineous -Wound Margin Distinct, Outline Attached -Texture (Abimbola-wound Skin Appearance) Assessed -Moisture (Abimbola-wound Skin Appearance) Assessed -Color (Abimbola-wound Skin Appearance) Assessed -Temperature (Abimbola-wound Skin No Abnormality Appearance) (Pt Warm) -Tenderness on Palpation (Abimbola-wound No Skin Appearance) -Ulcer Cleansing Rinsed/ Irrigated with Saline -Foul Odor after Cleansing No -Anesthetic Used 5% Lidocaine Gel WC - Nurse 2 - General Ulcer CM Notes Start: 06/07/24 10:03 Freq: Status: Active Protocol: Activity Type Activity Date Activity User E-sign Co-sign Detail Recorded Client Recorded Date Recorded By Document 06/07/24 10:28 JF 0000 06/07/24 10:54 JF 06/07/24 10:28 Wound Center Nurse 2 #7 RT BUTTOCK -Time 10:28 -Correct Patient Yes -Correct Side, Site, Position Yes -Correct Procedure Yes -Procedure Performed Yes -Type of Procedure Debridement -Clinical Debridement Subcutaneous -Tissue Removed Subcutaneous -Post Debridement (cm) - Length 0.6 -Post Debridement (cm) - Width 0.5 -Post Debridement (cm) - Depth 0.1 -Total Square (Post) (cm) 0.30 -Area of Debridement (cm) - Length 0.6 -Area of Debridement (cm) - Width 0.5 -Total Square (Area) (cm) 0.30 -Tunneling No -Undermining/Tunneling No -Circular Undermining No -Wound/Ulcer Outcome Not Healed -Ulcer Cleansing Rinsed/ Irrigated with Saline -Foul Odor after Cleansing No -Bioengineered Tissue No -Bleeding Controlled with Pressure -Treatment Response Procedure Tolerated Well -Offloading No -Debridement - Subq, 1st 20sq cm No #6 LT BREAST -Time 10:28 -Correct Patient Yes -Correct Side, Site, Position Yes -Correct Procedure Yes -Procedure Performed Yes -Type of Procedure Debridement -Clinical Debridement Subcutaneous -Tissue Removed Subcutaneous -Post Debridement (cm) - Length 2.0 -Post Debridement (cm) - Width 2.5 -Post Debridement (cm) - Depth 0.3 -Total Square (Post) (cm) 5.00 -Area of Debridement (cm) - Length 2.0 -Area of Debridement (cm) - Width 2.5 -Total Square (Area) (cm) 5.00 -Tunneling No -Undermining/Tunneling No -Circular Undermining No -Wound/Ulcer Outcome Not Healed -Ulcer Cleansing Rinsed/ Irrigated with Saline -Foul Odor after Cleansing Yes, Due to Product Use -Bioengineered Tissue No -Bleeding Controlled with Pressure -Treatment Response Procedure Tolerated Well -Offloading No -Debridement - Subq, 1st 20sq cm No -I&D / Paring / Biopsy I&D abscess - single or simple #5 LT ABD CREASE CLUSTER -Time 10:29 -Correct Patient Yes -Correct Side, Site, Position Yes -Correct Procedure Yes -Procedure Performed Yes -Type of Procedure Debridement -Clinical Debridement Subcutaneous -Tissue Removed Subcutaneous -Post Debridement (cm) - Length 1.5 -Post Debridement (cm) - Width 3.0 -Post Debridement (cm) - Depth 0.1 -Total Square (Post) (cm) 4.50 -Area of Debridement (cm) - Length 1.5 -Area of Debridement (cm) - Width 3.0 -Total Square (Area) (cm) 4.50 -Tunneling No -Undermining/Tunneling No -Circular Undermining No -Wound/Ulcer Outcome Not Healed -Ulcer Cleansing Rinsed/ Irrigated with Saline -Foul Odor after Cleansing No -Bioengineered Tissue No -Bleeding Controlled with Pressure -Treatment Response Procedure Tolerated Well -Offloading No -Debridement - Subq, 1st 20sq cm No #4 ABD -Time 10:29 -Correct Patient Yes -Correct Side, Site, Position Yes -Correct Procedure Yes -Procedure Performed Yes -Type of Procedure Debridement -Tissue Removed Epidermis, Dermis -Post Debridement (cm) - Length 0.7 -Post Debridement (cm) - Width 0.7 -Post Debridement (cm) - Depth 0.2 -Total Square (Post) (cm) 0.49 -Area of Debridement (cm) - Length 0.7 -Area of Debridement (cm) - Width 0.7 -Total Square (Area) (cm) 0.49 -Tunneling No -Undermining/Tunneling No -Circular Undermining No -Wound/Ulcer Outcome Not Healed -Ulcer Cleansing Rinsed/ Irrigated with Saline -Foul Odor after Cleansing No -Bioengineered Tissue No -Bleeding Controlled with Pressure -Offloading No -Debridement - Subq, 1st 20sq cm No #3 RT ARMPIT -Time 10:29 -Correct Patient Yes -Correct Side, Site, Position Yes -Correct Procedure Yes -Procedure Performed Yes -Type of Procedure Debridement -Clinical Debridement Subcutaneous -Tissue Removed Subcutaneous -Post Debridement (cm) - Length 0.5 -Post Debridement (cm) - Width 0.2 -Post Debridement (cm) - Depth 0.1 -Total Square (Post) (cm) 0.10 -Area of Debridement (cm) - Length 0.5 -Area of Debridement (cm) - Width 0.2 -Total Square (Area) (cm) 0.10 -Tunneling No -Undermining/Tunneling No -Circular Undermining No -Wound/Ulcer Outcome Not Healed -Ulcer Cleansing Rinsed/ Irrigated with Saline -Foul Odor after Cleansing No -Bioengineered Tissue No -Bleeding Controlled with Pressure -Treatment Response Procedure Tolerated Well -Offloading No -Debridement - Subq, 1st 20sq cm Yes Pain Scale: 0-10 Numeric Is Patient Pain Free? Yes WC - Nurse 3 - General Ulcer D/C NN Start: 06/07/24 10:03 Freq: Status: Active Protocol: Activity Type Activity Date Activity User E-sign Co-sign Detail Recorded Client Recorded Date Recorded By Document 06/07/24 11:17 KW fghj 06/07/24 11:18 06/07/24 11:17 Wound Care Center Nurse 3 #7 RT BUTTOCK -Primary Dressing Applied Promogran Jake Matter -Primary Dressing Covered/Secured with Dry Gauze, Secured with Tape -Promogran Jake Matter 1 #6 LT BREAST -Other Dressing JAKE -Primary Dressing Covered/Secured with Dry Gauze, Secured with Tape #5 LT ABD CREASE CLUSTER -Other Dressing JAKE -Primary Dressing Covered/Secured with Dry Gauze, Secured with Tape #4 ABD -Other Dressing JAKE -Primary Dressing Covered/Secured with Dry Gauze, Secured with Tape #3 RT ARMPIT -Other Dressing JAKE -Primary Dressing Covered/Secured with Dry Gauze, Secured with Tape Pain Scale: 0-10 Numeric Is Patient Pain Free? Yes Additional Wound Wound debrided: #5 left lateral abdominal crease cluster Laterality: Left Wound Grade/Stage: Stage III Type of Debridement: Excisional debridement Anesthesia Used: 5% Lidocaine Gel Depth: Down to and including healthy tissue and in the subcutaneous layer Percentage of wound debrided: 100 Instrument Used: 5mm curette Tissue Removed: Nonviable tissue and slough Severity: Fat Layer Exposed Amount of bleeding with debridement: Mild Bleeding Controlled with: Pressure and Compression and gauze Patient tolerated procedure: Patient tolerated procedure well Additional Wound Wound debrided: #3 right axilla, #4 abdomen (superior to umbilicus) and #7 right buttocks Wound Grade/Stage: Stage III Type of Debridement: Excisional debridement Anesthesia Used: 5% Lidocaine Gel Depth: Down to and including healthy tissue and in the subcutaneous layer Percentage of wound debrided: 100 Instrument Used: 3mm curette and Forceps (Sharp scissors) Tissue Removed: Nonviable tissue and slough. Able to unroofed and remove nonviable tissue Severity: Fat Layer Exposed Amount of bleeding with debridement: Mild Bleeding Controlled with: Pressure Patient tolerated procedure: Patient tolerated procedure well Assessment/Plan Assessment/Plan (1) Skin ulcer of abdomen with fat layer exposed: CODE(S): L98.492 - Non-pressure chronic ulcer of skin of other sites with fat layer exposed (2) Skin ulcer of buttock with fat layer exposed: CODE(S): L98.412 - Non-pressure chronic ulcer of buttock with fat layer exposed (3) Skin ulcer with fat layer exposed: CODE(S): L98.492 - Non-pressure chronic ulcer of skin of other sites with fat layer exposed (4) Prediabetes: CODE(S): R73.03 - Prediabetes (5) Ulcer of skin of breast: CODE(S): L98.499 - Non-pressure chronic ulcer of skin of other sites with unspecified severity PLAN: Plan Patient evaluated at the wound healing center. Wound care - [facility] is not covered by her insurance. Moistened Jake cover with gauze daily. Wash areas with soap and water at the time of dressing changes. Wound cultures obtained on 05/31/24. Left breast wound culture was positive for Staphylococcus aureus, Staphylococcus epidermidis, Corynebacterium amycolatum, and Anaerobic cocci. The left lateral abdominal ulcer in skin fold was positive for Pseudomonas putida, Staphylococcus epidermidis, Staphylococcus epidermidis #2, Corynebacterium amycolatum, and Anaerobic cocci. She was started on Augmentin and Cipro. Biopsy of left breast ulcer on medial edge for possible diagnosis of cause of ulcers. Encouraged patient to stop smoking as it may have deleterious effects on wound healing. Follow up one week. Call or come in sooner if develop any concerns.
[2024-06-14 09:40] VITALS: BP 123/72; PULSE 70; RESP 16; TEMP 35.5; BMI 43.9
--- NOTE | 2024-06-14 13:16 | PN.PCM_ITS ---
History of Present Illness Date of Service: 06/14/24 Chief Complaint: Ulcers on Left breast, left abdomen, mid abdomen, right b uttocks and right axilla History of Wound: History of Wound: 49 year old female, who is known to me, presents with multiple lesions that stared about a week ago. They are located on her right axilla, left breast, left lateral abdominal crease, mid abdomen and right buttocks. She states they started like a pimple and then scabbed over. They are very painful. She has not seen anyone else about these. She has not been putting anything on them. She smokes cigarettes. She is concerned that it could be hidradenitis suppurativa, she has a family history of it. She has a hi story of a work related injury to her left index finger, she also has history recent onset DM, COPD, migraines, anxiety. Today she denies fever, chills, nausea or vomiting. Progress of Wound: She has multiple lesions that stared about a week ago. They are located on her right axilla, left breast, left lateral abdominal crease, mid abdomen and right buttocks. She states they started like a pimple and then scabbed over. They are very painful. The left breast and left lateral side are larger into the subcutaneous tissue. The other areas have very dry scabs that are acting as biologic dressings. Wound cultures obtained on 05/31/24. Left breast wound culture was positive for Staphylococcus aureus, Staphylococcus epidermidis, Corynebacterium amycolatum, and Anaerobic cocci. The left lateral abdominal ulcer in skin fold was positive for Pseudomonas putida, Staphylococcus epidermidis, Staphylococcus epidermidis #2, Corynebacterium amycolatum, and Anaerobic cocci. She was started on Augmentin and Cipro. Biopsy of left breast ulcer on 06/07/24 showed Granulation with chronic inflammation. Fragment of skin with hyperkeratosis and parakeratosis, no evidence of malignancy and negative for fungal organisms. Today she denies fever, chills, nausea, vomiting. Progress of Wound: The right axilla is healed today. The mid abdomen and right buttock have dry scabbing that is very fibrous under the scabbing. The left lateral abdomen and left breast ulcers are stable and have a beefy pink ulcer bed. She is tolerating the Augmentin and Cipro. Discussed biopsy results from her left breast ulcer which showed Granulation with chronic inflammation. Fragment of skin with hyperkeratosis and parakeratosis, no evidence of malignancy and negative for fungal organisms. Patient mentioned that she just remembered that she has a history of MTHFR. Objective Data Objective Data Vital Signs: Vital Signs Temp Pulse Resp BP O2 Del Method 96 F L 70 16 123/72 H Room Air 06/14/24 09:40 06/14/24 09:40 06/14/24 09:40 06/14/24 09:40 06/14/24 09:40 Oxygen Delivery Method Room Air Weight: 240 lb Body Mass Index (BMI) 43.9 Charges/Coding Procedures Integumentary 111xxx-113xx: 60181 Anastasiya subq tissue 20 sq cm/< Debridement Note Debridement Note Wound debrided: #6 left breast Laterality: Left Wound Grade/Stage: Stage III Type of Debridement: Excisional debridement Anesthesia Used: 5% Lidocaine Gel Depth: Down to and including healthy tissue and in the subcutaneous layer Percentage of wound debrided: 100 Instrument Used: 5mm curette Tissue Removed: Nonviable tissue and slough Severity: Fat Layer Exposed Amount of bleeding with debridement: Mild Bleeding Controlled with: Pressure and Compression and gauze Patient tolerated procedure: Patient tolerated procedure well Post-Debridement Measurements and Additional Note: Post-Debridement Measurements/Treatment - Nurse 1 - General Ulcer Assessment Start: 06/07/24 10:03 Freq: Status: Active Protocol: .LOWURVASHIT Activity Type Activity Date Activity User E-sign Co-sign Detail Recorded Client Recorded Date Recorded By Document 06/07/24 10:03 DL 10.10.25.7 06/07/24 10:13 DL Document 06/14/24 09:40 BMF 10.10.25.7 06/14/24 09:49 BMF 06/07/24 06/14/24 10:03 09:40 - Today's Visit Information Type of service Follow-up Visit Follow-up Visit (Physician/GRAVITY PROSPECTING OBSERVER (Physician/GRAVITY PROSPECTING OBSERVER ) ) Arrival Mode Ambulatory Ambulatory Transfer Assistance None None Patient Identification Verified (Name & Yes Yes ) Patient Requires Transmission-Based No No Precautions Height and Weight Body Mass Index (BMI) 43.9 43.9 BMI Classification Obese Obese Vital Signs Temperature (97.8 F-99.1 F) 96.6 F L 96 F L Temperature Source Temporal Temporal Pulse Rate (60-100) 69 70 Pulse Location Monitor Monitor Respiratory Rate (12-18) 18 16 Respiratory rate source Observation Observation Oxygen Delivery Method Room Air Blood Pressure (90/60-120/80) 129/82 H 123/72 H Blood Pressure Mean (mm Hg) 97 89 Source Monitor Monitor Position Sitting Blood Pressure Location Left Arm History Since Last Visit- (Skip if this is Patient's initial visit) Have you changed medications since your No No last visit? Any new allergies or adverse reactions No No Had a fall/change in ADL's that may No No increase risk of falls Signs or symptoms of abuse and/or No No neglect since last visit Have you been in the hospital since your No No last visit? Has dressing in place as prescribed Yes Yes Has compression in place as prescribed N/A N/A Has offloadiing in place as prescribed N/A N/A Experienced any changes in pain level or No No management Left Footwear Regular Shoe Right Footwear Regular Shoe Pain Scale: 0-10 Numeric Is Patient Pain Free? Yes Yes WC - Nurse 1 - General Ulcer Measurement Start: 06/07/24 10:03 Freq: Status: Active Protocol: Activity Type Activity Date Activity User E-sign Co-sign Detail Recorded Client Recorded Date Recorded By Document 06/07/24 10:03 DL ..25.7 06/07/24 10:13 DL Document 06/14/24 09:40 BMF ..25.7 06/14/24 09:49 BMF 06/07/24 06/14/24 10:03 09:40 Wound Center Nurse 1 #3 RT ARMPIT -Combined with other wound No -Current Size (cm) - Length 0.1 0.1 -Current Size (cm) - Width 0.1 0.1 -Current Size (cm) - Depth 0.1 0.1 -Total Square Cm 0.01 0.01 -Photo Taken Yes -Epithelialization Large 67-100% -Tunneling No -Undermining/Tunneling No -Circular Undermining No -Exudate Amt Small None Present -Exudate Type Serosanguineous -Wound Margin Distinct, Flat & Intact Outline Attached -Granulation Amt None Present (0 %) -Slough/Fibrin No -Structure Exposed N/A -Texture (Abimbola-wound Skin Appearance) Assessed Assessed -Moisture (Abimbola-wound Skin Appearance) Assessed Assessed,Dry/ Scaly -Color (Abimbola-wound Skin Appearance) Assessed Assessed -Temperature (Abimbola-wound Skin No Abnormality No Abnormality Appearance) (Pt Warm) (Pt Warm) -Tenderness on Palpation (Abimbola-wound No No Skin Appearance) -Ulcer Cleansing Rinsed/ Rinsed/ Irrigated with Irrigated with Saline Saline -Foul Odor after Cleansing No No -Anesthetic Used 5% Lidocaine 5% Lidocaine Gel Gel #7 RT BUTTOCK -Combined with other wound No -Current Size (cm) - Length 0.7 0.3 -Current Size (cm) - Width 0.7 0.3 -Current Size (cm) - Depth 0.1 0.1 -Total Square Cm 0.49 0.09 -Date of Last Picture (Recall this 06/14/24 field) -Photo Taken Yes -Epithelialization Small 1-33% -Tunneling No -Undermining/Tunneling No -Circular Undermining No -Exudate Amt Small -Exudate Type Serosanguineous -Wound Margin Flat & Intact -Granulation Amt None Present (0 None Present (0 %) %) -Slough/Fibrin Yes -Necrosis Amt Large (67-100%) Large (67-100%) -Necrotic Tissue Type Adherent Slough Adherent Slough -Structure Exposed N/A -Texture (Abimbola-wound Skin Appearance) Assessed Assessed, Scarring -Moisture (Abimbola-wound Skin Appearance) Assessed Assessed,Dry/ Scaly -Color (Abimbola-wound Skin Appearance) Assessed Assessed -Temperature (Abimbola-wound Skin No Abnormality No Abnormality Appearance) (Pt Warm) (Pt Warm) -Tenderness on Palpation (Abimbola-wound No No Skin Appearance) -Ulcer Cleansing Rinsed/ Rinsed/ Irrigated with Irrigated with Saline Saline -Foul Odor after Cleansing No No -Anesthetic Used 5% Lidocaine 5% Lidocaine Gel Gel #6 LT BREAST -Combined with other wound No -Current Size (cm) - Length 2.7 1.6 -Current Size (cm) - Width 1.5 2.2 -Current Size (cm) - Depth 0.1 0.5 -Total Square Cm 4.05 3.52 -Photo Taken Yes -Epithelialization Small 1-33% -Tunneling No -Undermining/Tunneling No -Circular Undermining No -Exudate Amt Medium Medium -Exudate Type Serosanguineous Serosanguineous -Wound Margin Distinct, Flat & Intact Outline Attached -Granulation Amt None Present (0 Large (67-100%) %) -Granulation Quality Red -Slough/Fibrin Yes -Necrosis Amt Large (67-100%) Small (1-33%) -Necrotic Tissue Type Adherent Slough Adherent Slough -Structure Exposed N/A -Texture (Abimbola-wound Skin Appearance) Assessed Assessed -Moisture (Abimbola-wound Skin Appearance) Assessed Assessed,Dry/ Scaly -Color (Abimbola-wound Skin Appearance) Assessed Assessed -Temperature (Abimbola-wound Skin No Abnormality No Abnormality Appearance) (Pt Warm) (Pt Warm) -Tenderness on Palpation (Abimbola-wound Yes No Skin Appearance) -Ulcer Cleansing Rinsed/ Rinsed/ Irrigated with Irrigated with Saline Saline -Foul Odor after Cleansing No No -Anesthetic Used 5% Lidocaine 5% Lidocaine Gel Gel #5 LT ABD CREASE CLUSTER -Combined with other wound No -Current Size (cm) - Length 2.8 0.5 -Current Size (cm) - Width 1.7 1.7 -Current Size (cm) - Depth 0.2 0.1 -Total Square Cm 4.76 0.85 -Photo Taken Yes -Epithelialization Small 1-33% -Tunneling No -Undermining/Tunneling No -Circular Undermining No -Exudate Amt Small Small -Exudate Type Serosanguineous Serosanguineous -Wound Margin Distinct, Flat & Intact Outline Attached -Granulation Amt Medium (34-66%) Small (1-33%) -Granulation Quality Red Pale -Slough/Fibrin Yes -Necrosis Amt Medium (34-66%) Medium (34-66%) -Necrotic Tissue Type Adherent Slough Adherent Slough -Structure Exposed N/A -Texture (Abimbola-wound Skin Appearance) Assessed Assessed -Moisture (Abimbola-wound Skin Appearance) Assessed Assessed,Dry/ Scaly -Color (Abimbola-wound Skin Appearance) Assessed Assessed -Temperature (Abimbola-wound Skin No Abnormality No Abnormality Appearance) (Pt Warm) (Pt Warm) -Tenderness on Palpation (Abimbola-wound Yes No Skin Appearance) -Ulcer Cleansing Rinsed/ Rinsed/ Irrigated with Irrigated with Saline Saline -Foul Odor after Cleansing No -Anesthetic Used 5% Lidocaine Gel #4 ABD -Combined with other wound No -Current Size (cm) - Length 0.7 0.5 -Current Size (cm) - Width 0.7 0.5 -Current Size (cm) - Depth 0.1 0.1 -Total Square Cm 0.49 0.25 -Photo Taken Yes -Epithelialization None Present -Tunneling No -Undermining/Tunneling No -Circular Undermining No -Exudate Amt Small None Present -Exudate Type Serosanguineous -Wound Margin Distinct, Fibrotic Scar, Outline Thickened Scar Attached -Granulation Amt None Present (0 None Present (0 %) %) -Slough/Fibrin Yes -Necrosis Amt Large (67-100%) -Necrotic Tissue Type Adherent Slough Adherent Slough -Structure Exposed N/A -Texture (Abimbola-wound Skin Appearance) Assessed Assessed -Moisture (Abimbola-wound Skin Appearance) Assessed Assessed -Color (Abimbola-wound Skin Appearance) Assessed Assessed -Temperature (Abimbola-wound Skin No Abnormality No Abnormality Appearance) (Pt Warm) (Pt Warm) -Tenderness on Palpation (Abimbola-wound Yes No Skin Appearance) -Ulcer Cleansing Rinsed/ Rinsed/ Irrigated with Irrigated with Saline Saline -Foul Odor after Cleansing No No -Anesthetic Used 5% Lidocaine 5% Lidocaine Gel Gel Lower Limb Edema Present NA WC - Nurse 2 - General Ulcer CM Notes Start: 06/07/24 10:03 Freq: Status: Active Protocol: Activity Type Activity Date Activity User E-sign Co-sign Detail Recorded Client Recorded Date Recorded By Document 06/07/24 10:28 0000 06/07/24 10:54 Document 06/14/24 09:56 [id number] [id number] 06/14/24 10:03 06/07/24 06/14/24 10:28 09:56 Wound Center Nurse 2 #3 RT ARMPIT -Time 10:29 -Correct Patient Yes No -Correct Side, Site, Position Yes No -Correct Procedure Yes No -Procedure Performed Yes No -Type of Procedure Debridement -Clinical Debridement Subcutaneous -Tissue Removed Subcutaneous -Post Debridement (cm) - Length 0.5 0 -Post Debridement (cm) - Width 0.2 0 -Post Debridement (cm) - Depth 0.1 0 -Total Square (Post) (cm) 0.10 0 -Area of Debridement (cm) - Length 0.5 0 -Area of Debridement (cm) - Width 0.2 0 -Total Square (Area) (cm) 0.10 0 -Tunneling No -Undermining/Tunneling No -Circular Undermining No -Wound/Ulcer Outcome Not Healed Healed- Epithelialized -Ulcer Cleansing Rinsed/ Irrigated with Saline -Foul Odor after Cleansing No -Bioengineered Tissue No -Bleeding Controlled with Pressure -Treatment Response Procedure Tolerated Well -Offloading No -Debridement - Subq, 1st 20sq cm Yes #7 RT BUTTOCK -Time 10:28 -Correct Patient Yes No -Correct Side, Site, Position Yes No -Correct Procedure Yes No -Procedure Performed Yes No -Type of Procedure Debridement -Clinical Debridement Subcutaneous -Tissue Removed Subcutaneous -Post Debridement (cm) - Length 0.6 -Post Debridement (cm) - Width 0.5 -Post Debridement (cm) - Depth 0.1 -Total Square (Post) (cm) 0.30 -Area of Debridement (cm) - Length 0.6 -Area of Debridement (cm) - Width 0.5 -Total Square (Area) (cm) 0.30 -Tunneling No -Undermining/Tunneling No -Circular Undermining No -Wound/Ulcer Outcome Not Healed Not Healed -Ulcer Cleansing Rinsed/ Irrigated with Saline -Foul Odor after Cleansing No -Bioengineered Tissue No -Bleeding Controlled with Pressure -Treatment Response Procedure Tolerated Well -Offloading No -Debridement - Subq, 1st 20sq cm No #6 LT BREAST -Time 10:28 10:03 -Correct Patient Yes Yes -Correct Side, Site, Position Yes Yes -Correct Procedure Yes Yes -Procedure Performed Yes Yes -Type of Procedure Debridement Debridement -Clinical Debridement Subcutaneous Subcutaneous -Tissue Removed Subcutaneous Subcutaneous -Post Debridement (cm) - Length 2.0 1.5 -Post Debridement (cm) - Width 2.5 2.5 -Post Debridement (cm) - Depth 0.3 0.7 -Total Square (Post) (cm) 5.00 3.75 -Area of Debridement (cm) - Length 2.0 1.5 -Area of Debridement (cm) - Width 2.5 2.5 -Total Square (Area) (cm) 5.00 3.75 -Tunneling No No -Undermining/Tunneling No No -Circular Undermining No No -Wound/Ulcer Outcome Not Healed Not Healed -Ulcer Cleansing Rinsed/ Rinsed/ Irrigated with Irrigated with Saline Saline -Foul Odor after Cleansing Yes, Due to No Product Use -Bioengineered Tissue No No -Bleeding Controlled with Pressure Pressure -Treatment Response Procedure Procedure Tolerated Well Tolerated Well -Offloading No No -Debridement - Subq, 1st 20sq cm No No -I&D / Paring / Biopsy I&D abscess - single or simple #5 LT ABD CREASE CLUSTER -Time 10: 10:00 -Correct Patient Yes Yes -Correct Side, Site, Position Yes Yes -Correct Procedure Yes Yes -Procedure Performed Yes Yes -Type of Procedure Debridement Debridement -Clinical Debridement Subcutaneous Subcutaneous -Tissue Removed Subcutaneous Subcutaneous -Post Debridement (cm) - Length 1.5 0.8 -Post Debridement (cm) - Width 3.0 1.7 -Post Debridement (cm) - Depth 0.1 0.1 -Total Square (Post) (cm) 4.50 1.36 -Area of Debridement (cm) - Length 1.5 0.8 -Area of Debridement (cm) - Width 3.0 1.7 -Total Square (Area) (cm) 4.50 1.36 -Tunneling No No -Undermining/Tunneling No No -Circular Undermining No No -Wound/Ulcer Outcome Not Healed Not Healed -Ulcer Cleansing Rinsed/ Rinsed/ Irrigated with Irrigated with Saline Saline -Foul Odor after Cleansing No No -Bioengineered Tissue No No -Bleeding Controlled with Pressure Pressure -Treatment Response Procedure Procedure Tolerated Well Tolerated Well -Offloading No No -Debridement - Subq, 1st 20sq cm No No #4 ABD -Time 10: 10:01 -Correct Patient Yes Yes -Correct Side, Site, Position Yes Yes -Correct Procedure Yes Yes -Procedure Performed Yes Yes -Type of Procedure Debridement Debridement -Clinical Debridement Subcutaneous -Tissue Removed Epidermis, Subcutaneous Dermis -Post Debridement (cm) - Length 0.7 0.5 -Post Debridement (cm) - Width 0.7 0.8 -Post Debridement (cm) - Depth 0.2 0.1 -Total Square (Post) (cm) 0.49 0.40 -Area of Debridement (cm) - Length 0.7 0.5 -Area of Debridement (cm) - Width 0.7 0.8 -Total Square (Area) (cm) 0.49 0.40 -Tunneling No No -Undermining/Tunneling No No -Circular Undermining No No -Wound/Ulcer Outcome Not Healed Not Healed -Ulcer Cleansing Rinsed/ Rinsed/ Irrigated with Irrigated with Saline Saline -Foul Odor after Cleansing No No -Bioengineered Tissue No No -Bleeding Controlled with Pressure Pressure -Treatment Response Procedure Tolerated Well -Offloading No No -Debridement - Subq, 1st 20sq cm No Yes Pain Scale: 0-10 Numeric Is Patient Pain Free? Yes Yes - Nurse 3 - General Ulcer D/C NN Start: 06/07/24 10:03 Freq: Status: Active Protocol: Activity Type Activity Date Activity User E-sign Co-sign Detail Recorded Client Recorded Date Recorded By Document 06/07/24 11:17 KW fghj 06/07/24 11:18 KW Document 06/14/24 10:07 KW ][ 06/14/24 10:08 KW 06/07/24 06/14/24 11:17 10:07 Wound Care Center Nurse 3 #3 RT ARMPIT -Other Dressing JAKE -Primary Dressing Covered/Secured with Dry Gauze, Secured with Tape #7 RT BUTTOCK -Primary Dressing Applied Promogran C Hydrogel ($) Jake Matter -Primary Dressing Covered/Secured with Dry Gauze, Dry Gauze, Secured with Secured with Tape Tape -Promogran Jake Matter 1 #6 LT BREAST -Other Dressing JAKE HYDROGEL -Primary Dressing Covered/Secured with Dry Gauze, Dry Gauze, Secured with Secured with Tape Tape #5 LT ABD CREASE CLUSTER -Other Dressing JAKE HYDROGEL -Primary Dressing Covered/Secured with Dry Gauze, Dry Gauze, Secured with Secured with Tape Tape #4 ABD -Other Dressing JAKE HYDROGEL -Primary Dressing Covered/Secured with Dry Gauze, Dry Gauze, Secured with Secured with Tape Tape Pain Scale: 0-10 Numeric Is Patient Pain Free? Yes Yes - Visit Discharge Discharge Condition Stable Ambulatory Status Ambulatory Transportation Private Auto Medication Reconcilliation completed & No provided to patient/care provider Clinical Summary of Care Provided Yes Additional Wound Wound debrided: #5 left lateral abdominal crease cluster Laterality: Left Wound Grade/Stage: Stage III Type of Debridement: Excisional debridement Anesthesia Used: 5% Lidocaine Gel Depth: Down to and including healthy tissue and in the subcutaneous layer Percentage of wound debrided: 100 Instrument Used: 5mm curette Tissue Removed: Nonviable tissue and slough Severity: Fat Layer Exposed Amount of bleeding with debridement: Mild Bleeding Controlled with: Pressure and Compression and gauze Patient tolerated procedure: Patient tolerated procedure well Additional Wound Wound debrided: #4 abdomen (superior to umbilicus) and #7 right buttocks Wound Grade/Stage: Stage III Type of Debridement: Excisional debridement Anesthesia Used: 5% Lidocaine Gel Depth: Down to and including healthy tissue and in the subcutaneous layer Percentage of wound debrided: 100 Instrument Used: 3mm curette Tissue Removed: Nonviable tissue and slough. Severity: Fat Layer Exposed Amount of bleeding with debridement: Mild Bleeding Controlled with: Pressure Patient tolerated procedure: Patient tolerated procedure well Assessment/Plan Assessment/Plan (1) Skin ulcer of abdomen with fat layer exposed: CODE(S): L98.492 - Non-pressure chronic ulcer of skin of other sites with fat layer exposed (2) Skin ulcer of buttock with fat layer exposed: CODE(S): L98.412 - Non-pressure chronic ulcer of buttock with fat layer exposed (3) Skin ulcer with fat layer exposed: CODE(S): L98.492 - Non-pressure chronic ulcer of skin of other sites with fat layer exposed (4) Prediabetes: CODE(S): R73.03 - Prediabetes (5) Ulcer of skin of breast: CODE(S): L98.499 - Non-pressure chronic ulcer of skin of other sites with unspecified severity PLAN: Plan Patient evaluated at the wound healing center. Wound care - Collagen hydrogel topped with adaptic and covered with gauze daily. Wash areas with soap and water at the time of dressing changes. Wound cultures obtained on 05/31/24. Left breast wound culture was positive for Staphylococcus aureus, Staphylococcus epidermidis, Corynebacterium amycolatum, and Anaerobic cocci. The left lateral abdominal ulcer in skin fold was positive for Pseudomonas putida, Staphylococcus epidermidis, Staphylococcus epidermidis #2, Corynebacterium amycolatum, and Anaerobic cocci. She was started on Augmentin and Cipro. Biopsy of left breast ulcer on medial edge negative for malignancy. It showed granulation with chronic inflammation, fragment of skin with hyperkeratosis and parakeratosis, negative for fungal organisms. Encouraged patient to stop smoking as it may have deleterious effects on wound healing. Encouraged her to follow up with her PCP for further evaluation of her MTHFR and possible cardiac echo. She states that she has not been taking ASA or Folic Acid as she was instructed to do. Follow up one week. Call or come in sooner if develop any concerns.
--- NOTE | 2024-06-24 10:04 | WC ---
PHOTO RIGHT BUTTOCK 06/14/24
--- NOTE | 2024-06-24 10:05 | WC ---
PHOTO 06/14/24 RIGHT AXILLA
--- NOTE | 2024-06-24 10:06 | WC ---
PHOTO 06/14/24 ABD
--- NOTE | 2024-06-24 10:06 | WC ---
PHOTO 06/14/24 LEFT ABD CREASE
--- NOTE | 2024-06-24 10:07 | WC ---
PHOTO 06/14/24 LEFT BREAST
== END 2024-07-03 23:59 | disposition home or self-care (01) ==
LOC: WC 09:30
PROVIDERS: PCP Family Medicine; Referring Provider Nurse Practitioner Family; Visit Provider Nurse Practitioner Family
DX: L98.492 Non-pressure chronic ulcer of skin of other sites with fat layer exposed (principal); L98.412 Non-pressure chronic ulcer of buttock with fat layer exposed; J44.9 Chronic obstructive pulmonary disease, unspecified; R73.03 Prediabetes; F41.9 Anxiety disorder, unspecified; F17.210 Nicotine dependence, cigarettes, uncomplicated; Z79.899 Other long term (current) drug therapy
CPT/HCPCS: 10060; 11042; 88304; 88312

== ENCOUNTER 2024-07-21 14:00 | Outpatient (RCR) | payer MEDICAID, SELFPAY ==
[2024-07-12 11:11] VITALS: BP 167/97; PULSE 96; RESP 16; TEMP 35.7
[2024-07-21 14:05] VITALS: BP 113/77; PULSE 74; RESP 18; TEMP 36
== END 2024-08-02 23:59 | disposition home or self-care (01) ==
LOC: WC 14:00
PROVIDERS: PCP Family Medicine; Referring Provider Nurse Practitioner Family; Visit Provider Nurse Practitioner Family
DX: L98.492 Non-pressure chronic ulcer of skin of other sites with fat layer exposed (principal); J44.9 Chronic obstructive pulmonary disease, unspecified; B37.2 Candidiasis of skin and nail; L85.9 Epidermal thickening, unspecified; F41.9 Anxiety disorder, unspecified; Z79.899 Other long term (current) drug therapy; F17.210 Nicotine dependence, cigarettes, uncomplicated; R73.03 Prediabetes
CPT/HCPCS: 11042; 11045

== ENCOUNTER → 2024-08-12 | Outpatient (CLI) | payer MEDICAID, SELFPAY ==
--- NOTE | 2024-08-12 | BRBX_PTH ---
PATIENT: ARAMIS PACE LOC: [facility] U#:[id number] AGE/SX: 49/F ROOM: RE08/12/[address]: Dr. Bentley Abreu MD : 1975 BED: DIS: 08/12/2024 SPEC #: [id number] RECD: 08/13/24 10:34 STATUS: DELMAR TODD #: [id number] [place]: 08/12/24 00:[address]: Bentley Abreu DEPT: SURGICAL PATHOLOGY RECD BY: Teressa Gonsales ENTERED: 08/13/24 10:35 SP TYPE: BREAST BX OT DR: Nery Weinberg PA-C Tissues: Breast, NOS Procedures: Special Stain Group I Surgery Specimen Level IV GMS Stain (control) HEADER OPERATION: Breast wound biopsy PRE-OP DIAGNOSIS: Breast wound, non-healing TISSUE SUBMITTED: Breast wound biopsy MICROSCOPIC DIAGNOSIS Breast wound, biopsy: Moderate to marked acute and chronic inflammation and granulation tissue reaction. Psoriasiform epidermal hyperplasia and hyperkeratosis. Negative for malignancy. See comment. 08/16/2024 COMMENT Special stain for fungi is negative for organisms; matched control is appropriate. Focal are of ulceration noted consistent with history of wound. MICROSCOPIC DESCRIPTION Slides are reviewed. GROSS DESCRIPTION Received is one container labeled with the patient's name and not further designated. The specimen consists of a triangle fragment of light montague soft tissue measuring 0.7 x 0.5 x 0.1cm. The specimen is submitted in its entirety in one cassette. Denise 08/13/2024 TC:2 CPT:04619,17058
[2024-08-12 16:46] LABS: Pathology Skin Biopsy SEE PATHOLOGY REPORT
== END | disposition home or self-care (01) ==
PROVIDERS: PCP Family Medicine; Referring Provider Surgery Plastic and Reconstructive Surgery; Visit Provider Surgery Plastic and Reconstructive Surgery
DX: L98.499 Non-pressure chronic ulcer of skin of other sites with unspecified severity (principal)
CPT/HCPCS: 88305; 88312

== ENCOUNTER 2024-08-30 13:45 | Outpatient (RCR) | payer MEDICAID, SELFPAY ==
[2024-08-03 00:46] VITALS: BP 113/77; PULSE 74; RESP 18; TEMP 36
[2024-08-11 14:17] VITALS: BP 140/93; PULSE 70; RESP 18; TEMP 35.8
[2024-08-23 14:31] VITALS: BP 119/73; PULSE 62; RESP 16; TEMP 35.9
[2024-08-30 13:59] VITALS: BP 121/65; PULSE 79; RESP 16; TEMP 36.4
== END 2024-09-02 23:59 | disposition home or self-care (01) ==
LOC: WC 13:45
PROVIDERS: PCP Family Medicine; Referring Provider Nurse Practitioner Family; Visit Provider Nurse Practitioner Family
DX: L98.492 Non-pressure chronic ulcer of skin of other sites with fat layer exposed (principal); J44.9 Chronic obstructive pulmonary disease, unspecified; B37.2 Candidiasis of skin and nail; R73.03 Prediabetes; L85.9 Epidermal thickening, unspecified; M79.644 Pain in right finger(s); F41.9 Anxiety disorder, unspecified; F17.210 Nicotine dependence, cigarettes, uncomplicated; Z79.899 Other long term (current) drug therapy
CPT/HCPCS: 11042; 87070; 87075; 87077; 87186; 87205; 99213; G0463

== ENCOUNTER 2024-09-17 12:23 | Outpatient (RCR) | payer MEDICAID, SELFPAY ==
[2024-09-03 00:46] VITALS: BP 113/77; PULSE 74; RESP 18; TEMP 36
--- NOTE | 2024-09-17 12:37 | MRI_ITS ---
STUDY: BILATERAL BREAST MR WITHOUT AND WITH CONTRAST REASON FOR EXAM: Female, 49 years old. Superficial wound. History of total hip arthroplasty. TECHNIQUE: Multi-sequence multi-echo imaging of both breasts was performed with a dedicated breast coil. T1-weighted and T2-weighted images were performed before the administration of contrast. T1-weighted images were also performed after the intravenous administration of 24 cc of Clariscan contrast. COMPARISON: Bilateral mammogram dated May 10, 2013 FINDINGS: RIGHT BREAST: Fatty replaced breast tissue with minimal background enhancement. No abnormal enhancing masses or areas of non-mass enhancement in the right breast. LEFT BREAST: Fatty replaced breast tissue with minimal background enhancement. Superficial skin enhancement in the lateral and inferior aspect of the left breast compatible with cellulitis. No abscess. No enlarged or abnormal lymph nodes. No abnormality in the visualized regions of the chest or liver. MRI/Breast Bilateral W/O and W IMPRESSION: Superficial enhancement of the skin in the lower outer aspect of the left breast compatible with superficial cellulitis. No abscess and no other enhancing abnormality in either breast. CATEGORY: BIRADS Category 2: Benign. A letter regarding these results will be sent to the patient by the facility within 30 days. Electronically Signed: Oracio Larkin MD at 11:12 EST ,
== END 2024-10-02 23:59 | disposition home or self-care (01) ==
LOC: WC 12:23
PROVIDERS: PCP Family Medicine; Referring Provider Nurse Practitioner Family; Visit Provider Nurse Practitioner Family
DX: L98.499 Non-pressure chronic ulcer of skin of other sites with unspecified severity (principal)
CPT/HCPCS: 77049; A9575; A4216; C8908

== ENCOUNTER 2024-10-04 14:15 | Outpatient (RCR) | payer MEDICAID, SELFPAY ==
[2024-07-04 00:21] VITALS: BP 150/83; PULSE 80; RESP 18; TEMP 36.9; BMI 43.9
[2024-10-04 14:16] VITALS: BP 118/82; PULSE 70; RESP 18; TEMP 35.7; BMI 43.9
--- NOTE | 2024-10-04 15:11 | PN.PCM_ITS ---
History of Present Illness Date of Service: 10/04/24 Chief Complaint: Ulcers on Left breast History of Wound: History of Wound: 49 year old female, who is known to me, presents with multiple lesions that stared about a week ago. They are located on her right axilla, left breast, left lateral abdominal crease, mid abdomen and right buttocks. She states they started like a pimple and then scabbed over. They are very painful. She has not seen anyone else about these. She has not been putting anything on them. She smokes cigarettes. She is concerned that it could be hidradenitis suppurativa, she has a family history of it. She has a history of a work related injury to her left index finger, she also has history recent onset DM, COPD, migraines, anxiety. Today she denies fever, chills, nausea or vomiting. Progress of Wound: She has multiple lesions that stared about a week ago. They are located on her right axilla, left breast, left lateral abdominal crease, mid abdomen and right buttocks. She states they started like a pimple and then scabbed over. They are very painful. The left breast and left lateral side are larger into the subcutaneous tissue. The other areas have very dry scabs that are acting as biologic dressings. Wound cultures obtained on 05/31/24. Left breast wound culture was positive for Staphylococcus aureus, Staphylococcus epidermidis, Corynebacterium amycolatum, and Anaerobic cocci. The left lateral abdominal ulcer in skin fold was positive for Pseudomonas putida, Staphylococcus epidermidis, Staphylococcus epidermidis #2, Corynebacterium amycolatum, and Anaerobic cocci. She was started on Augmentin and Cipro. Biopsy of left breast ulcer on 06/07/24 showed Granulation with chronic inflammation. Fragment of skin with hyperkeratosis and parakeratosis, no evidence of malignancy and negative for fungal organisms. MRI of her bilateral breasts from 09/17/24 showed Superficial enhancement of the skin in the lower outer aspect of the left breast compatible with superficial cellulitis. No abscess and no other enhancing abnormality in either breast. Today she denies fever, chills, nausea, vomiting. Progress of Wound: She comes back in stating that her left breast wound reopened after her MRI. Sh e states that it is very painful. A wound culture was obtained today after numbing her with Lidocaine 1%/epi to be able to debride appropriately for wound culture. ? A positive culture will necessitate antibiotic therapy. MRI of her bilateral breasts from 09/17/24 showed Superficial enhancement of the skin in the lower outer aspect of the left breast compatible with superficial cellulitis. No abscess and no other enhancing abnormality in either breast. She has an appointment tomorrow with [facility] for further evuluation of this painful ulcer. Objective Data Objective Data Vital Signs: Vital Signs Temp Pulse Resp BP O2 Del Method 96.3 F L 70 18 118/82 H Room Air 10/04/24 14:16 10/04/24 14:16 10/04/24 14:16 10/04/24 14:16 10/04/24 14:16 Oxygen Delivery Method Room Air Weight: 240 lb Body Mass Index (BMI) 43.9 Charges/Coding Procedures Integumentary 111xxx-113xx: 13977 Anastasiya subq tissue 20 sq cm/< Debridement Note Debridement Note Wound debrided: breast ulcer Laterality: Left Wound Grade/Stage: Stage 3 Type of Debridement: Excisional debridement Anesthesia Used: - (Lidocaine 1%/Epi 6 cc) Depth: Down to and including healthy tissue and in the subcutaneous layer Percentage of wound debrided: 100 Instrument Used: 7mm curette Tissue Removed: Non viable tissue and slough Severity: Fat Layer Exposed Bleeding Controlled with: Compression and gauze Patient tolerated procedure: Patient tolerated procedure well Debridement Free Text: Injected breast ulcer with Lidocaine 1%/epi in order to debride so could obtain a proper wound culture Post-Debridement Measurements and Additional Note: Post-Debridement Measurements/Treatment - Nurse 1 - General Ulcer Assessment Start: 10/04/24 14:16 Freq: Status: Active Protocol: LICO.LOWURVASHIT Activity Type Activity Date Activity User E-sign Co-sign Detail Recorded Client Recorded Date Recorded By Document 10/04/24 14:16 KW [id number] 10/04/24 14:30 KW 10/04/24 14:16 - Today's Visit Information Type of service Follow-up Visit (Physician/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 ) Arrival Mode Ambulatory Patient Identification Verified (Name & Yes ) Height and Weight Body Mass Index (BMI) 43.9 BMI Classification Obese Vital Signs Temperature (97.8 F-99.1 F) 96.3 F L Temperature Source Temporal Pulse Rate (60-100) 70 Pulse Location Monitor Respiratory Rate (12-18) 18 Respiratory rate source Observation Oxygen Delivery Method Room Air Blood Pressure (90/60-120/80) 118/82 H Blood Pressure Mean (mm Hg) 94 Source Monitor Position Sitting Blood Pressure Location Left Arm History Since Last Visit- (Skip if this is Patient's initial visit) Have you changed medications since your Yes last visit? Any new allergies or adverse reactions No Had a fall/change in ADL's that may No increase risk of falls Signs or symptoms of abuse and/or No neglect since last visit Have you been in the hospital since your No last visit? Has dressing in place as prescribed Yes Has compression in place as prescribed N/A Has offloadiing in place as prescribed N/A Experienced any changes in pain level or No management Left Footwear Regular Shoe Right Footwear Regular Shoe Pain Scale: 0-10 Numeric Is Patient Pain Free? Yes WC - Nurse 1 - General Ulcer Measurement Start: 10/04/24 14:16 Freq: Status: Active Protocol: Activity Type Activity Date Activity User E-sign Co-sign Detail Recorded Client Recorded Date Recorded By Document 10/04/24 14:16 KW [id number] 10/04/24 14:30 KW 10/04/24 14:16 Wound Center Nurse 1 #6 LT BREAST -Current Size (cm) - Length 4 -Current Size (cm) - Width 4 -Current Size (cm) - Depth 0.6 -Total Square Cm 16 -Date of Last Picture (Recall this 10/04/24 field) -Exudate Amt Large -Exudate Type Serosanguineous -Wound Margin Distinct, Outline Attached -Granulation Amt Medium (34-66%) -Granulation Quality Red -Necrosis Amt Medium (34-66%) -Necrotic Tissue Type Adherent Slough -Texture (Abimbola-wound Skin Appearance) Assessed -Moisture (Abimbola-wound Skin Appearance) Assessed -Color (Abimbola-wound Skin Appearance) Assessed -Temperature (Abimbola-wound Skin No Abnormality Appearance) (Pt Warm) -Tenderness on Palpation (Abimbola-wound No Skin Appearance) -Ulcer Cleansing Soap and Water -Foul Odor after Cleansing No -Anesthetic Used 4% Lidocaine Solution,5% Lidocaine Gel WC - Nurse 2 - General Ulcer CM Notes Start: 10/04/24 14:16 Freq: Status: Active Protocol: Activity Type Activity Date Activity User E-sign Co-sign Detail Recorded Client Recorded Date Recorded By Document 10/04/24 14:47 JF [id number] 10/04/24 14:54 JF 10/04/24 14:47 Wound Center Nurse 2 -Time 14:47 -Correct Patient Yes -Correct Side, Site, Position Yes -Correct Procedure Yes -Procedure Performed Yes -Type of Procedure Debridement -Clinical Debridement Subcutaneous -Tissue Removed Subcutaneous -Post Debridement (cm) - Length 4 -Post Debridement (cm) - Width 5 -Post Debridement (cm) - Depth 0.5 -Total Square (Post) (cm) 20 -Area of Debridement (cm) - Length 4 -Area of Debridement (cm) - Width 5 -Total Square (Area) (cm) 20 -Tunneling No -Undermining/Tunneling No -Circular Undermining No -Wound/Ulcer Outcome Not Healed -Ulcer Cleansing Rinsed/ Irrigated with Saline -Foul Odor after Cleansing No -Bioengineered Tissue No -Bleeding Controlled with Pressure -Treatment Response Procedure Tolerated Well -Offloading No -Debridement - Subq, 1st 20sq cm Yes Pain Scale: 0-10 Numeric Is Patient Pain Free? Yes - Nurse 3 - General Ulcer D/C NN Start: 10/04/24 14:16 Freq: Status: Active Protocol: Activity Type Activity Date Activity User E-sign Co-sign Detail Recorded Client Recorded Date Recorded By Document 10/04/24 15:02 DL [id number] 10/04/24 15:03 DL 10/04/24 15:02 Wound Care Center Nurse 3 #6 LT BREAST -Ulcer Cleansing Rinsed/ Irrigated with Saline -Foul Odor after Cleansing No -Primary Dressing Applied Aquacel AG 4x4 -Primary Dressing Covered/Secured with Dry Gauze, Secured with Tape -Aquacel AG 4x4 1 Treatment Response Procedure Tolerated Well Pain Scale: 0-10 Numeric Is Patient Pain Free? Yes WC - Visit Discharge Discharge Condition Stable Ambulatory Status Ambulatory Transportation Private Auto Assessment/Plan Assessment/Plan (1) Ulcer of skin of breast: CODE(S): L98.499 - Non-pressure chronic ulcer of skin of other sites with unspecified severity (2) Skin ulcer of abdomen with fat layer exposed: CODE(S): L98.492 - Non-pressure chronic ulcer of skin of other sites with fat layer exposed (3) Skin ulcer with fat layer exposed: CODE(S): L98.492 - Non-pressure chronic ulcer of skin of other sites with fat layer exposed (4) Prediabetes: CODE(S): R73.03 - Prediabetes (5) Candidal skin infection: CODE(S): B37.2 - Candidiasis of skin and nail PLAN: Plan Patient evaluated at the wound healing center. Wound care - Aquacel -Ag daily covered with gauze daily after washing with soap and water. A wound culture was obtained today.? A positive culture will necessitate antibiotic therapy. Reviewed MRI results. She has an appointment with [facility] for evaluation of this ulcer. Follow up one week.
--- NOTE | 2024-10-05 15:11 | WC ---
PHOTO 10/04/24 LT BREAST
== END 2024-10-07 15:59 | disposition home or self-care (01) ==
LOC: WC 14:15
PROVIDERS: PCP Family Medicine; Referring Provider Nurse Practitioner Family; Visit Provider Nurse Practitioner Family
DX: L98.492 Non-pressure chronic ulcer of skin of other sites with fat layer exposed (principal); J44.9 Chronic obstructive pulmonary disease, unspecified; E11.9 Type 2 diabetes mellitus without complications; F41.9 Anxiety disorder, unspecified; F17.210 Nicotine dependence, cigarettes, uncomplicated; B37.2 Candidiasis of skin and nail
CPT/HCPCS: 11042; 87070; 87075; 87077; 87186; 87205

== ENCOUNTER 2025-04-27 14:00 | Outpatient (RCR) | payer MEDICAID, SELFPAY ==
[2025-04-18 14:02] VITALS: BP 119/55; PULSE 59; RESP 16; TEMP 35.9
--- NOTE | 2025-04-19 09:04 | PCM.WC.HP ---
History of Present Illness Date of Service: 04/18/25 Chief Complaint: Ulcers on Left breast History of Wound: CURRENT ENCOUNTER, 19 April 2025 The patient is a 50-year-old female presenting with a left heel ulcer. The ulcer measures 2 by 1 cm and extends down to the fascia, having been present for approximately one month and worsening over time. There is no history of pressure points from footwear or work-related pressure contributing to the ulcer. The patient has a history of pyoderma gangrenosum, previously affecting the breast, which was successfully treated last year (steroid injection by [facility]). The current ulcer is possibly related to pyoderma gangrenosum, although its location is atypical. The patient also has a history of trigger finger, which improved with an injection. The patient is a smoker, consuming a significant number of cigarettes daily, particularly when nervous, and expresses a desire to quit. She has been advised to consult her primary care physician regarding smoking cessation options, such as Wellbutrin. Attestation: Documentation on this patient encounter was supported using ambient scribe technology/ voice AI technology. The patient consented to recording for the purpose of documenting the encounter. Provider reviewed content of the generated note prior to signature. [facility] Medical History Unsteady gait Intertrigo Panniculitis Abdominal panniculus Flexion contracture of joint of left hand Muscle spasm Pressure ulcer of unspecified site, unspecified stage Finger osteomyelitis, left Wears glasses Depression Hx of blood diseases Gastric reflux Shortness of breath on exertion Smoker Chronic cough History of irregular heartbeat Laceration without foreign body of left index finger without damage to nail, sequela Skin necrosis Skin ulcer of finger Seasonal allergies Carpal tunnel syndrome History of back problems UTI (urinary tract infection) Hx of migraines Anxiety IBS (irritable bowel syndrome) GERD (gastroesophageal reflux disease) Work related injury Smoker Crushing injury of finger, left Laceration of extensor structure of left index finger at hand level Laceration of left index finger w/o foreign body w/o damage to nail Asthma Arthritis Hypertension Home Medications ?Medication ?Instructions ?Recorded ?Last Taken ?Type clonazepam 0.5 mg tablet 0.5 mg PO Q4H PRN PRN Anxiety 04/14/18 Unknown History duloxetine 60 mg capsule,delayed 60 mg PO DAILY ANXIETY 04/14/18 05/03/23 History release oxybutynin chloride 15 mg 15 mg PO DAILY urine 04/14/18 05/06/23 History tablet,extended release 24 hr (Ditropan XL) valacyclovir 500 mg tablet 500 mg PO DAILY herpes 04/14/18 05/06/23 History (Valtrex) albuterol sulfate 90 mcg/actuation 2 puff inhalation Q6H PRN ASTHMA 06/08/21 Unknown History aerosol inhaler (ProAir HFA) topiramate 25 mg tablet (Topamax) 25 mg PO BID 06/08/21 05/06/23 History meloxicam 7.5 mg tablet 7.5 mg PO DAILY 05/05/23 05/06/23 History metronidazole 1 %-mupirocin 2 % ea topical 01/22/24 Unknown History topical ointment sulfamethoxazole 400 1 tab PO BID 01/22/24 Unknown History mg-trimethoprim 80 mg tablet (Bactrim) amoxicillin 875 mg-potassium 1 tab PO Q12H 14 days #28 tabs 06/04/24 Unknown Rx clavulanate 125 mg tablet nystatin 100,000 unit/gram topical 1 applic topical BID 14 days #60 07/21/24 Unknown Rx powder grams cephalexin 500 mg capsule 500 mg PO TID 04/18/25 Unknown History fexofenadine 180 mg tablet 180 mg PO DAILY 04/18/25 Unknown History folic acid 1 mg tablet 1 mg PO DAILY 04/18/25 Unknown History hydroxyzine HCl 25 mg tablet 25 mg PO TID PRN PRN itch 04/18/25 Unknown History meloxicam 15 mg tablet 15 mg PO DAILY 04/18/25 Unknown History metoprolol succinate 50 mg 50 mg PO DAILY 04/18/25 Unknown History tablet,extended release 24 hr silver sulfadiazine 1 % topical applic topical BID 04/18/25 Unknown History cream (SSD) triamcinolone acetonide 0.1 % applic topical TID 04/18/25 Unknown History topical cream Allergy/AdvReac Type Severity Reaction Status Date / Time fluticasone (From Advair Allergy Intermediate Chest Verified 12/30/24 14:20 Diskus) tightness salmeterol (From Advair Allergy Intermediate Chest Verified 12/30/24 14:20 Diskus) tightness Family History Other Alcoholism Anxiety Arthritis COPD (chronic obstructive pulmonary disease) CVA (cerebral vascular accident) Clotting disorder Depression Diabetes Hypertension Surgical History History of hand surgery Hx of dilation and curettage Hx of section History of tubal ligation History of hip replacement History of foot surgery Social History Smoking Status: Current every day smoker tobacco type: cigarettes Tobacco: How many years used: 30 alcohol intake: current Alcohol type: beer and wine details: Casual substance use type: unknown additional social history: pt denies vaping, denies marijuana use, denies edible uses aspirin daily, denies ibuprofen, hx of blood clotting issues ROS ROS Narrative - Integumentary: Reports left heel ulcer, denies other wounds. - Neurological: Denies numbness or tingling in the left foot. Vital Signs Vital Signs Vital Signs: 04/18/25 14:02 Temperature 96.7 F L Temperature Source Temporal Pulse Rate 59 L Respiratory Rate 16 Blood Pressure 119/55 L Blood Pressure Mean 76 Blood Pressure Source Monitor Blood Pressure Position Semi-Fowlers Blood Pressure Location Right Arm Oxygen Delivery Method Room Air Physical Exam Narrative - Vascular: Two plus dorsalis pedis and posterior tibial pulses, warm and well-perfused left foot - Neurological: Sensation intact throughout the left foot 2 x 1 cm and 0.4 cm deep lateral heel ulcer Debridement Note Debridement Note No debridement was completed: No debridement was completed today Post-Debridement Measurements and Additional Note: Post-Debridement Measurements/Treatment - Nurse 1 - General Ulcer Assessment Start: 04/18/25 14:02 Freq: Status: Active Protocol: LICO.NAVJOT Activity Type Activity Date Activity User E-sign Co-sign Detail Recorded Client Recorded Date Recorded By Document 04/18/25 14:02 KW [id number] 04/18/25 14:28 KW 04/18/25 14:02 - Today's Visit Information Type of service Initial Visit Arrival Mode Ambulatory,Cane Patient Identification Verified (Name & Yes ) Vital Signs Temperature (97.8 F-99.1 F) 96.7 F L Temperature Source Temporal Pulse Rate (60-100) 59 L Pulse Location Monitor Respiratory Rate (12-18) 16 Respiratory rate source Observation Oxygen Delivery Method Room Air Blood Pressure (90/60-120/80) 119/55 L Blood Pressure Mean 76 Source Monitor Position Semi-Fowlers Blood Pressure Location Right Arm History Since Last Visit- (Skip if this is Patient's initial visit) Left Footwear Regular Shoe Right Footwear Regular Shoe Pain Scale: 0-10 Numeric Is Patient Pain Free? Yes WC - Nurse 1 - General Ulcer Measurement Start: 04/18/25 14:02 Freq: Status: Active Protocol: Activity Type Activity Date Activity User E-sign Co-sign Detail Recorded Client Recorded Date Recorded By Document 04/18/25 14:02 KW [id number] 04/18/25 14:28 KW 04/18/25 14:02 Wound Center Nurse 1 #8 LT HEEL -Current Size (cm) - Length 2 -Current Size (cm) - Width 1.2 -Current Size (cm) - Depth 0.5 -Total Square Cm 2.4 -Date of Last Picture (Recall this 04/18/25 field) -Exudate Amt Large -Exudate Type Serosanguineous -Wound Margin Distinct, Outline Attached -Granulation Amt Large (67-100%) -Granulation Quality Red -Necrosis Amt Medium (34-66%) -Necrotic Tissue Type Adherent Slough -Texture (Abimbola-wound Skin Appearance) Assessed -Moisture (Abimbola-wound Skin Appearance) Assessed, Maceration -Color (Abimbola-wound Skin Appearance) Assessed -Temperature (Abimbola-wound Skin No Abnormality Appearance) (Pt Warm) -Tenderness on Palpation (Abimbola-wound No Skin Appearance) -Ulcer Cleansing Soap and Water -Foul Odor after Cleansing No -Anesthetic Used 5% Lidocaine Gel WC - Nurse 2 - General Ulcer CM Notes Start: 04/18/25 14:02 Freq: Status: Active Protocol: Activity Type Activity Date Activity User E-sign Co-sign Detail Recorded Client Recorded Date Recorded By Document 04/18/25 14:43 [email or web address] [id number] 04/18/25 14:51 JF 04/18/25 14:43 Wound Center Nurse 2 -Correct Patient Yes -Correct Side, Site, Position No -Correct Procedure No -Procedure Performed No -Wound/Ulcer Outcome Not Healed -Debridement - Subq, 1st 20sq cm No Pain Scale: 0-10 Numeric Is Patient Pain Free? Yes LICO - Nurse 3 - General Ulcer D/C NN Start: 04/18/25 14:02 Freq: Status: Active Protocol: Activity Type Activity Date Activity User E-sign Co-sign Detail Recorded Client Recorded Date Recorded By Document 04/18/25 15:06 ML [id number] 04/18/25 15:06 ML Edit Result 04/18/25 15:06 ML (1) [id number] 04/18/25 15:08 ML (1) #8 LT HEEL - Primary Dressing Covered/Secured with => Dry Gauze & Roll => Gauze,Secured with => Tape - Other Covering darco shoe => DARCO SHOE 04/18/25 15:06 Wound Care Center Nurse 3 #8 LT HEEL -Ulcer Cleansing Rinsed/ Irrigated with Saline -Primary Dressing Applied Aquacel AG 4x4 -Primary Dressing Covered/Secured with Dry Gauze & Roll Gauze, Secured with Tape -Other Covering DARCO SHOE -Aquacel AG 4x4 1 Pain Scale: 0-10 Numeric Is Patient Pain Free? Yes Charges/Coding Visit Charges Office Visits / Consults: [id number] OV L4 Est 30min Assessment/Plan Assessment/Plan (1) Foot ulcer, left: CODE(S): L97.529 - Non-pressure chronic ulcer of other part of left foot with unspecified severity (2) Pyoderma gangrenosum: CODE(S): L88 - Pyoderma gangrenosum (3) Smoking addiction: CODE(S): F17.200 - Nicotine dependence, unspecified, uncomplicated PLAN: Plan 1. Left heel ulcer The ulcer is 2 by 1 cm, extending to the fascia, and has been worsening over the past month. An x-ray of the heel is planned to rule out underlying issues. Vascular studies, including ankle-brachial indices, are recommended to assess blood flow. Referral to a specialist, Dr. Salmeron, for further evaluation and management is advised. Pressure offloading measures, including a postoperative shoe, are suggested to prevent exacerbation. 2. Pyoderma gangrenosum The ulcer may be related to pyoderma gangrenosum, although its location is atypical. A biopsy may be considered if the specialist deems it necessary. Referral to a generator switchboard operator, Dr. Lane, for further evaluation is recommended. 3. Smoking cessation The patient is advised to consult her primary care physician about smoking cessation options, such as Wellbutrin, to aid in quitting smoking, which may impact the healing of the ulcer. - Schedule an x-ray of the heel before the next appointment with Dr. Salmeron. - Use the postoperative shoe to offload pressure from the heel. - Consult your primary care physician about smoking cessation options. - Follow up with Dr. Salmeron (Podiatry) and Dr. Lane (Dermatology) as scheduled for further evaluation.
--- NOTE | 2025-04-19 10:24 | WC ---
PHOTO 04/18/25 LEFT LATERAL HEEL
[2025-04-20 14:31] VITALS: BP 130/81; PULSE 75; RESP 18; TEMP 36.1
--- NOTE | 2025-04-20 15:09 | PCM.WC.PN ---
History of Present Illness Date of Service: 04/20/25 Chief Complaint: Ulcers on Left breast History of Wound: CURRENT ENCOUNTER, 19 April 2025 The patient is a 50-year-old female presenting with a left heel ulcer. The ulcer measures 2 by 1 cm and extends down to the fascia, having been present for approximately one month and worsening over time. There is no history of pressure points from footwear or work-related pressure contributing to the ulcer. The patient has a history of pyoderma gangrenosum, previously affecting the breast, which was successfully treated last year (steroid injection by [facility] dermatology). The current ulcer is possibly related to pyoderma gangrenosum, although its location is atypical. The patient also has a history of trigger finger, which improved with an injection. The patient is a smoker, consuming a significant number of cigarettes daily, particularly when nervous, and expresses a desire to quit. She has been advised to consult her primary care physician regarding smoking cessation options, such as Wellbutrin. Attestation: Documentation on this patient encounter was supported using ambient scribe technology/ voice AI technology. The patient consented to recording for the purpose of documenting the encounter. Provider reviewed content of the generated note prior to signature. Progress of Wound: Full-thickness wound concern for fungal infection, left heel Subjective Subjective Ms. verdugo is a 50-year-old prediabetic female presenting to the wound care center today after referral from Dr. Abreu, with concerns and complaint of a full-thickness wound to the lateral left heel. Patient states that she is on her feet for long periods of time and walking in a surgical shoe. She admits mild to moderate pain especially with touch and pressure to the left heel. She has taken and exhausted oral antibiotics Keflex as prescribed by an outside provider. She will be following up next week with vascular lab for arterial and venous studies. Patient is unsure how the wound actually happened but can state that she noticed some dryness and fissuring to the heel and then the wound just happened to get larger and she is unsure why. She denies trauma to the area. Denies constitutional symptoms. No other pedal complaints at this time. Objective Data Objective Data Vital Signs: Vital Signs Temp Pulse Resp BP O2 Del Method 97 F L 75 18 130/81 H Room Air 04/20/25 14:31 04/20/25 14:31 04/20/25 14:31 04/20/25 14:31 04/18/25 14:02 Oxygen Delivery Method Room Air Physical Exam Narrative Vascular: DP and PT pulses are palpable to left lower extremity. CFT is brisk. No erythema. Skin temperature gradient is warm to warm from proximal ankles to distal digits left lower extremity. Neurological: Light touch intact. Patient respond to painful stimuli. Dermatological: Full-thickness wound appreciated to the lateral left heel measuring 1.4 x 1.6 x 0.5 cm. Wound base is fibrogranular in nature. Light drainage is appreciated. No malodor is noted. No erythema to the wound or periwound is appreciated. There is evidence of dry scaly skin concerning for moccasin distribution to the plantar aspect of the bilateral feet. Selective debridement down to and including subcutaneous tissue with a 4 x 4 gauze to the full-thickness wound to the left heel done without incident. Pre and post measurement was 1.4 x 1.6 x 0.5 cm. Musculoskeletal: Patient shows evidence of a relaxed varus deformity. Moderate palpatory tenderness appreciated a full-thickness wound. No pain with calf pressure. Debridement Note Debridement Note Debridement Free Text: Selective debridement down to and including subcutaneous tissue with a 4 x 4 gauze to the full-thickness wound to the left heel done without incident. Pre and post measurement was 1.4 x 1.6 x 0.5 cm. 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 WORKER GENERAL ) Arrival Mode Ambulatory,Cane Ambulatory Accompanied by self Patient Identification Verified (Name & Yes Yes ) Safety Precautions Fall Prevention Vital Signs Temperature (97.8 F-99.1 F) 96.7 F L 97 F L Temperature Source Temporal Temporal Pulse Rate (60-100) 59 L 75 Pulse Location Monitor Monitor Respiratory Rate (12-18) 16 18 Respiratory rate source Observation Observation Oxygen Delivery Method Room Air Blood Pressure (90/60-120/80) 119/55 L 130/81 H Blood Pressure Mean (mm Hg) 76 97 Source Monitor Monitor Position Semi-Fowlers Sitting Blood Pressure Location Right Arm Left Arm History Since Last Visit- (Skip if this is Patient's initial visit) Has dressing in place as prescribed Yes Has compression in place as prescribed Yes Has offloadiing in place as prescribed Yes Experienced any changes in pain level or Yes management Left Footwear Regular Shoe Regular Shoe Right Footwear Regular Shoe Regular Shoe Pain Scale: 0-10 Numeric Is Patient Pain Free? Yes Yes WC - Nurse 1 - General Ulcer Measurement Start: 04/18/25 14:02 Freq: Status: Active Protocol: Activity Type Activity Date Activity User E-sign Co-sign Detail Recorded Client Recorded Date Recorded By Document 04/18/25 14:02 KW [id number] 04/18/25 14:28 KW Document 04/20/25 14:31 [place] [id number] 04/20/25 14:32 [place] 04/18/25 04/20/25 14:02 14:31 Wound Center Nurse 1 #8 LT HEEL -Current Size (cm) - Length 2 -Current Size (cm) - Width 1.2 -Current Size (cm) - Depth 0.5 -Total Square Cm 2.4 -Date of Last Picture (Recall this 04/18/25 field) -Exudate Amt Large -Exudate Type Serosanguineous -Wound Margin Distinct, Outline Attached -Granulation Amt Large (67-100%) -Granulation Quality Red -Necrosis Amt Medium (34-66%) -Necrotic Tissue Type Adherent Slough -Texture (Abimbola-wound Skin Appearance) Assessed -Moisture (Abimbola-wound Skin Appearance) Assessed, Maceration -Color (Abimbola-wound Skin Appearance) Assessed -Temperature (Abimbola-wound Skin No Abnormality Appearance) (Pt Warm) -Tenderness on Palpation (Abimbola-wound No Skin Appearance) -Ulcer Cleansing Soap and Water -Foul Odor after Cleansing No -Anesthetic Used 5% Lidocaine Gel Lower Limb Edema Present NA WC - Nurse 2 - General Ulcer CM Notes Start: 04/18/25 14:02 Freq: Status: Active Protocol: Activity Type Activity Date Activity User E-sign Co-sign Detail Recorded Client Recorded Date Recorded By Document 04/18/25 14:43 JF [id number] 04/18/25 14:51 JF Document 04/20/25 14:37 JF [id number] 04/20/25 14:46 JF Edit Result 04/20/25 14:37 JF (1) [id number] 04/20/25 14:49 JF (1) #8 LT HEEL - Correct Side, Site, Position No => Yes - Correct Procedure No => Yes - Procedure Performed No => Yes - Type of Procedure => Debridement - Clinical Debridement => Epidermis / Dermis - Tissue Removed => Epidermis,Dermis - Debridement - Open, 1st 20sq cm => Yes - Debridement - Subq, 1st 20sq cm No => 04/18/25 04/20/25 14:43 14:37 Wound Center Nurse 2 #8 LT HEEL -Time 14:43 -Correct Patient Yes Yes -Correct Side, Site, Position No Yes -Correct Procedure No Yes -Procedure Performed No Yes -Type of Procedure Debridement -Clinical Debridement Epidermis / Dermis -Tissue Removed Epidermis, Dermis -Post Debridement (cm) - Length 1.4 -Post Debridement (cm) - Width 1.6 -Post Debridement (cm) - Depth 0.5 -Total Square (Post) (cm) 2.24 -Area of Debridement (cm) - Length 1.4 -Area of Debridement (cm) - Width 1.6 -Total Square (Area) (cm) 2.24 -Tunneling No -Undermining/Tunneling No -Circular Undermining No -Wound/Ulcer Outcome Not Healed Not Healed -Ulcer Cleansing Rinsed/ Irrigated with Saline -Foul Odor after Cleansing No -Bioengineered Tissue No -Bleeding Controlled with Pressure -Treatment Response Procedure Tolerated Well -Offloading No -Debridement - Open, 1st 20sq cm Yes -Debridement - Subq, 1st 20sq cm No Pain Scale: 0-10 Numeric Is Patient Pain Free? Yes Yes - Nurse 3 - General Ulcer D/C NN Start: 04/18/25 14:02 Freq: Status: Active Protocol: Activity Type Activity Date Activity User E-sign Co-sign Detail Recorded Client Recorded Date Recorded By Document 04/18/25 15:06 ML [id number] 04/18/25 15:06 ML Edit Result 04/18/25 15:06 ML (1) [id number] 04/18/25 15:08 ML Document 04/20/25 15:02 ML [id number] 04/20/25 15:02 ML (1) #8 LT HEEL - Primary Dressing Covered/Secured with => Dry Gauze & Roll => Gauze,Secured with => Tape - Other Covering darco shoe => DARCO SHOE 04/18/25 04/20/25 15:06 15:02 Wound Care Center Nurse 3 #8 LT HEEL -Ulcer Cleansing Rinsed/ Rinsed/ Irrigated with Irrigated with Saline Saline -Primary Dressing Applied Aquacel AG 4x4 Aquacel AG 4x4 -Other Dressing BETADINE WASH -Primary Dressing Covered/Secured with Dry Gauze & Dry Gauze & Roll Gauze, Roll Gauze, Secured with Secured with Tape Tape -Other Covering DARCO SHOE -Aquacel AG 4x4 1 1 Pain Scale: 0-10 Numeric Is Patient Pain Free? Yes Yes Assessment/Plan Assessment/Plan (1) Non-pressure chronic ulcer of left heel and midfoot with fat layer exposed: CODE(S): L97.422 - Non-pressure chronic ulcer of left heel and midfoot with fat layer exposed PLAN: Patient was examined and evaluated. All findings were discussed with the patient. All questions were answered to the patient's satisfaction. Selective debridement down to and including subcutaneous tissue with a 4 x 4 gauze to the full-thickness wound to the left heel done without incident. Pre and post measurement was 1.4 x 1.6 x 0.5 cm. Left lower extremities were cleaned and patted dry. Culture was taken. I educated the patient that she will be placed on additional antibiotics if there grows bacteria sensitive to antibiotics other than Keflex. I educated the patient that I will call her with results. The full-thickness wound was dressed with Betadine soaked gauze, silver alginate dry sterile dressing and compression wrap and surgical shoe. Due to concerns for moxa distribution as well as a possible fungal infection to the full-thickness wound to the left heel, the patient will be placed on terbinafine 250 mg twice daily for 2 weeks. I educate the patient that she needs to either break her blood pressure medication in half or stop her blood pressure medication altogether while taking the terbinafine. I also recommended for her to call her primary doctor for recommendation. Also during the patient's physical examination she shows evidence of a varus deformity to the level of the foot right now we will exhaust all conservative treatment such as weekly wound care with daily dressing changes to the full-thickness wound left lower extremity. I would also recommend a Timur brace if she continues to have breakdown of skin to the area when she is healed. Surgical intervention would consist of either a posterior tibial tendon lengthening as well as split anterior tibial tendon transfer as needed. She will follow-up with vascular lab for noninvasive vascular studies in the upcoming week. Follow-up at the wound care center with Dr. Salmeron in 1 week. (2) Tinea pedis: CODE(S): B35.3 - Tinea pedis QUALIFIERS: Laterality: bilateral Qualified Code(s): B35.3 - Tinea pedis
--- NOTE | 2025-04-25 14:32 | WC ---
received call from pt regarding cultures that were taking on her last visit. she notes mychart showing she has an infection and wondering if Dr. Salmeron was putting her on abx. Message sent to Dr. Salmeron and he will call in abx-Cipro to her pharmacy [facility]. Called pt and told her about antibiotic.
[2025-04-27 13:06] VITALS: BP 136/93; PULSE 99; RESP 18; TEMP 36.4
--- NOTE | 2025-04-27 13:46 | PCM.WC.PN ---
History of Present Illness Date of Service: 04/27/25 Chief Complaint: Ulcers on Left breast History of Wound: CURRENT ENCOUNTER, 19 April 2025 The patient is a 50-year-old female presenting with a left heel ulcer. The ulcer measures 2 by 1 cm and extends down to the fascia, having been present for approximately one month and worsening over time. There is no history of pressure points from footwear or work-related pressure contributing to the ulcer. The patient has a history of pyoderma gangrenosum, previously affecting the breast, which was successfully treated last year (steroid injection by [facility] dermatology). The current ulcer is possibly related to pyoderma gangrenosum, although its location is atypical. The patient also has a history of trigger finger, which improved with an injection. The patient is a smoker, consuming a significant number of cigarettes daily, particularly when nervous, and expresses a desire to quit. She has been advised to consult her primary care physician regarding smoking cessation options, such as Wellbutrin. Attestation: Documentation on this patient encounter was supported using ambient scribe technology/ voice AI technology. The patient consented to recording for the purpose of documenting the encounter. Provider reviewed content of the generated note prior to signature. Progress of Wound: Full-thickness wound left heel stable improving Subjective Subjective Patient is a 70-year-old female presenting to wound care center today for follow-up evaluation of left heel full-thickness wound. The patient has been taking her terbinafine 250 mg twice daily for the past week. She noticed improvement to the scaliness of her plantar foot skin. She has been doing dressing changes as discussed. Her blood pressure is doing well as she has reduced and/or stopped her metoprolol. She admits to some pain with weightbearing to the outside of the left heel but overall is doing well. Denies trauma. Denies constitutional symptoms. No other pedal complaints at this time. Objective Data Objective Data Vital Signs: Vital Signs Temp Pulse Resp BP O2 Del Method 97.5 F L 99 18 136/93 H Room Air 04/27/25 13:06 04/27/25 13:06 04/27/25 13:06 04/27/25 13:06 04/18/25 14:02 Oxygen Delivery Method Room Air Lab / Micro Data Micro: Microbiology 04/20/25 14:41 Ulcer, Decubitus - Left Foot Gram Stain - Final 04/20/25 14:41 Ulcer, Decubitus - Left Foot Wound Culture - Final Proteus mirabilis Klebsiella oxytoca Staphylococcus aureus 04/20/25 14:41 Ulcer, Decubitus - Left Foot Anaerobic Culture - Preliminary Checking for anaerobes, further studies to follow. Physical Exam Narrative Vascular: DP and PT pulses are palpable to left lower extremity. CFT is brisk. No erythema. Skin temperature gradient is warm to warm from proximal ankles to distal digits left lower extremity. Neurological: Light touch intact. Patient respond to painful stimuli. Dermatological: Full-thickness wound appreciated to the lateral left heel measuring 1.4 x 1.5 x 0.7 cm wound base is fibrogranular in nature. Light drainage is appreciated but improving. No malodor is noted. No erythema to the wound or periwound is appreciated. [place] distribution to the plantar skin is improving. Excisional debridement down to including subcutaneous tissue with a number 5 mm dermal curette to the lateral full-thickness wound on the left heel done without incident. Predebridement measurement was 1.3 x 1.4 x 0.5 cm. Postdebridement measurement is 1.4 x 1.5 x 0.7 cm. Musculoskeletal: Mild pain on palpation to the full-thickness wound to the left heel. No pain with calf compression. Debridement Note Debridement Note Debridement Free Text: Excisional debridement down to including subcutaneous tissue with a number 5 mm dermal curette to the lateral full-thickness wound on the left heel done without incident. Predebridement measurement was 1.3 x 1.4 x 0.5 cm. Postdebridement measurement is 1.4 x 1.5 x 0.7 cm. Post-Debridement Measurements and Additional Note: Post-Debridement Measurements/Treatment WC - Nurse 1 - General Ulcer Assessment Start: 04/18/25 14:02 Freq: Status: Active Protocol: LICO.NAVJOT Activity Type Activity Date Activity User E-sign Co-sign Detail Recorded Client Recorded Date Recorded By Document 04/18/25 14:02 KW [id number] 04/18/25 14:28 KW Document 04/20/25 14:31 MT [id number] 04/20/25 14:32 MT Document 04/27/25 13:06 DL [id number] 04/27/25 13:12 DL 04/18/25 04/20/25 04/27/25 14:02 14:31 13:06 - Today's Visit Information Type of service Initial Visit Follow-up Visit Follow-up Visit (Physician/SECURITIES SUPERVISOR (Physician/SECURITIES SUPERVISOR ) ) Arrival Mode Ambulatory,Cane Ambulatory Ambulatory Transfer Assistance Manual Accompanied by self Patient Identification Verified (Name & Yes Yes Yes ) Patient Requires Transmission-Based No Precautions Safety Precautions Fall Prevention Vital Signs Temperature (97.8 F-99.1 F) 96.7 F L 97 F L 97.5 F L Temperature Source Temporal Temporal Temporal Pulse Rate (60-100) 59 L 75 99 Pulse Location Monitor Monitor Monitor Respiratory Rate (12-18) 16 18 18 Respiratory rate source Observation Observation Monitor Oxygen Delivery Method Room Air Blood Pressure (90/60-120/80) 119/55 L 130/81 H 136/93 H Blood Pressure Mean (mm Hg) 76 97 107 Source Monitor Monitor Monitor Position Semi-Fowlers Sitting Blood Pressure Location Right Arm Left Arm History Since Last Visit- (Skip if this is Patient's initial visit) Have you changed medications since your No last visit? Any new allergies or adverse reactions No Had a fall/change in ADL's that may No increase risk of falls Signs or symptoms of abuse and/or No neglect since last visit Have you been in the hospital since your No last visit? Has dressing in place as prescribed Yes No Has compression in place as prescribed Yes N/A Has offloadiing in place as prescribed Yes Yes Experienced any changes in pain level or Yes No management Left Footwear Regular Shoe Regular Shoe Surgical Shoe with pressure relief insole Right Footwear Regular Shoe Regular Shoe Pain Scale: 0-10 Numeric Is Patient Pain Free? Yes Yes Yes - Nurse 1 - General Ulcer Measurement Start: 04/18/25 14:02 Freq: Status: Active Protocol: Activity Type Activity Date Activity User E-sign Co-sign Detail Recorded Client Recorded Date Recorded By Document 04/18/25 14:02 KW [id number] 04/18/25 14:28 KW Document 04/20/25 14:31 MT [id number] 04/20/25 14:32 MT Document 04/27/25 13:06 DL [id number] 04/27/25 13:12 DL 04/18/25 04/20/25 04/27/25 14:02 14:31 13:06 Wound Center Nurse 1 #8 LT HEEL -Current Size (cm) - Length 2 1.7 -Current Size (cm) - Width 1.2 1.3 -Current Size (cm) - Depth 0.5 0.5 -Total Square Cm 2.4 2.21 -Date of Last Picture (Recall this 04/18/25 field) -Photo Taken Yes -Exudate Amt Large Medium -Exudate Type Serosanguineous Serosanguineous -Wound Margin Distinct, Thickened & Outline Rolled Under Attached -Granulation Amt Large (67-100%) Large (67-100%) -Granulation Quality Red Wanda -Necrosis Amt Medium (34-66%) Small (1-33%) -Necrotic Tissue Type Adherent Slough Adherent Slough -Structure Exposed N/A -Texture (Abimbola-wound Skin Appearance) Assessed Scarring -Moisture (Abimbola-wound Skin Appearance) Assessed, Maceration Maceration -Color (Abimbola-wound Skin Appearance) Assessed No Abnormality -Temperature (Abimbola-wound Skin No Abnormality Appearance) (Pt Warm) -Tenderness on Palpation (Abimbola-wound No Yes Skin Appearance) -Ulcer Cleansing Soap and Water Soap and Water -Foul Odor after Cleansing No No -Anesthetic Used 5% Lidocaine 4% Lidocaine Gel Solution Lower Limb Edema Present NA WC - Nurse 2 - General Ulcer CM Notes Start: 04/18/25 14:02 Freq: Status: Active Protocol: Activity Type Activity Date Activity User E-sign Co-sign Detail Recorded Client Recorded Date Recorded By Document 04/18/25 14:43 [id number] 04/18/25 14:51 Document 04/20/25 14:37 [id number] 04/20/25 14:46 Edit Result 04/20/25 14:37 JF (1) [id number] 04/20/25 14:49 Document 04/27/25 13:28 DS [id number] 04/27/25 13:32 DS (1) #8 LT HEEL - Correct Side, Site, Position No => Yes - Correct Procedure No => Yes - Procedure Performed No => Yes - Type of Procedure => Debridement - Clinical Debridement => Epidermis / Dermis - Tissue Removed => Epidermis,Dermis - Debridement - Open, 1st 20sq cm => Yes - Debridement - Subq, 1st 20sq cm No => 04/18/25 04/20/25 04/27/25 14:43 14:37 13:28 Wound Center Nurse 2 #8 LT HEEL -Time 14:43 13:28 -Correct Patient Yes Yes Yes -Correct Side, Site, Position No Yes Yes -Correct Procedure No Yes Yes -Procedure Performed No Yes Yes -Type of Procedure Debridement Debridement -Clinical Debridement Epidermis / Subcutaneous Dermis -Tissue Removed Epidermis, Subcutaneous Dermis -Post Debridement (cm) - Length 1.4 1.4 -Post Debridement (cm) - Width 1.6 1.5 -Post Debridement (cm) - Depth 0.5 0.7 -Total Square (Post) (cm) 2.24 2.10 -Area of Debridement (cm) - Length 1.4 1.4 -Area of Debridement (cm) - Width 1.6 1.5 -Total Square (Area) (cm) 2.24 2.10 -Tunneling No No -Undermining/Tunneling No No -Circular Undermining No No -Wound/Ulcer Outcome Not Healed Not Healed Not Healed -Ulcer Cleansing Rinsed/ Rinsed/ Irrigated with Irrigated with Saline Saline -Foul Odor after Cleansing No No -Bioengineered Tissue No No -Bleeding Controlled with Pressure Pressure -Treatment Response Procedure Procedure Tolerated Well Tolerated Well -Offloading No -Debridement - Open, 1st 20sq cm Yes -Debridement - Subq, 1st 20sq cm No Yes Pain Scale: 0-10 Numeric Is Patient Pain Free? Yes Yes Yes - Nurse 3 - General Ulcer D/C NN Start: 04/18/25 14:02 Freq: Status: Active Protocol: Activity Type Activity Date Activity User E-sign Co-sign Detail Recorded Client Recorded Date Recorded By Document 04/18/25 15:06 ML [id number] 04/18/25 15:06 ML Edit Result 04/18/25 15:06 ML (1) [id number] 04/18/25 15:08 ML Document 04/20/25 15:02 ML [id number] 04/20/25 15:02 ML Document 04/27/25 13:41 DL [id number] 04/27/25 13:43 DL (1) #8 LT HEEL - Primary Dressing Covered/Secured with => Dry Gauze & Roll => Gauze,Secured with => Tape - Other Covering darco shoe => DARCO SHOE 04/18/25 04/20/25 04/27/25 15:06 15:02 13:41 Wound Care Center Nurse 3 #8 LT HEEL -Ulcer Cleansing Rinsed/ Rinsed/ Rinsed/ Irrigated with Irrigated with Irrigated with Saline Saline Saline -Foul Odor after Cleansing No -Primary Dressing Applied Aquacel AG 4x4 Aquacel AG 4x4 AMD Dressing 4x4,C Hydrogel -Other Dressing BETADINE WASH -Primary Dressing Covered/Secured with Dry Gauze & Dry Gauze & Dry Gauze & Roll Gauze, Roll Gauze, Roll Gauze Secured with Secured with Tape Tape -Other Covering DARCO SHOE -AMD Dressing 4x4 1 -Aquacel AG 4x4 1 1 -Hydrogel 1 Treatment Response Procedure Tolerated Well Pain Scale: 0-10 Numeric Is Patient Pain Free? Yes Yes Yes WC - Visit Discharge Discharge Condition Stable Ambulatory Status Ambulatory Transportation Private Auto Assessment/Plan Assessment/Plan (1) Non-pressure chronic ulcer of left heel and midfoot with fat layer exposed: CODE(S): L97.422 - Non-pressure chronic ulcer of left heel and midfoot with fat layer exposed PLAN: Patient was examined and evaluated. All findings were discussed with the patient. All questions were answered to the patient's satisfaction. Excisional debridement down to including subcutaneous tissue with a number 5 mm dermal curette to the lateral full-thickness wound on the left heel done without incident. Predebridement measurement was 1.3 x 1.4 x 0.5 cm. Postdebridement measurement is 1.4 x 1.5 x 0.7 cm. The left heel was wiped plain and patted dry. Hydrogel followed by AMD pad was applied. Patient will change daily. She will continue her antibiotic as prescribed. Patient will continue the terbinafine 250 mg twice daily for an additional week until gone. Patient is grateful for care. Follow-up at the wound care center with Dr. Salmeron in 1 week. (2) Tinea pedis: CODE(S): B35.3 - Tinea pedis QUALIFIERS: Laterality: bilateral Qualified Code(s): B35.3 - Tinea pedis
--- NOTE | 2025-04-27 14:06 | ART_ITS ---
Reason For Study Reason For Study: Lt Foot Wound Procedure A bilateral lower extremity continuous wave Doppler with analog waveform analysis,segmental pressures,and ankle brachial indexes without exercise. Left Segmental Pressures Left brachial= 128mmHg. Left posterior tibial artery = 150mmHg. Left dorsalis pedis artery = 151mmHg. Left digit = 92 mmHg. The left posterior tibial artery waveforms are triphasic. The left dorsalis pedis waveforms are triphasic. Right Segmental Pressures Right brachial= 134mmHg. Right posterior tibial artery = 153mmHg. Right dorsalis pedis artery = 151mmHg. Right digit = 132 mmHg. The right posterior tibial artery waveforms are triphasic. The right dorsalis pedis waveforms are triphasic. Indices The right ankle brachial index by the posterior tibial artery is 1.14. The right ankle brachial index by the dorsalis pedis is 1.13. The right digital-brachial index is 0.99. The left ankle brachial index by the posterior tibial artery is 1.12. The left ankle brachial index by the dorsalis pedis is 1.13. The left digital-brachial index is 0.69. VL/Lower Ext Art Exam w/o Exercis Interpretation Summary Right SIERRA 1.14, normal. TBI and Doppler/PVR waveforms of the right leg normal a t rest. Left SIERRA 1.13, normal. Doppler/PVR waveforms of the left leg normal at rest. TB I diminished, pedal/digit disease vs spasm. Ordering Physician: Bentley Abreu Referring Physician: Nery Weinberg Performed By: Damien Ordonez RVT
== END 2025-05-02 23:59 | disposition home or self-care (01) ==
LOC: WC 14:00
PROVIDERS: PCP Family Medicine; Referring Provider Family Medicine; Visit Provider Surgery Plastic and Reconstructive Surgery
DX: L88 Pyoderma gangrenosum (principal); L97.422 Non-pressure chronic ulcer of left heel and midfoot with fat layer exposed; F17.210 Nicotine dependence, cigarettes, uncomplicated; B35.3 Tinea pedis
CPT/HCPCS: 11042; 87070; 87075; 87077; 87186; 87205; 93923; 97597; 99213; 99214; G0463

== ENCOUNTER 2025-08-02 09:07 | Outpatient (RCR) | payer MEDICAID, SELFPAY ==
[2025-08-02 09:56] VITALS: BP 99/61; PULSE 102; RESP 18; TEMP 36.1; BMI 44.0
--- NOTE | 2025-08-03 15:02 | WC ---
PHOTO-LOWER BACK 08/02/25
--- NOTE | 2025-08-03 15:06 | WC ---
PHOTO-LEFT HIP 08/02/25
--- NOTE | 2025-08-03 15:08 | WC ---
PHOTO-MID CHEST 08/02/25
--- NOTE | 2025-08-03 15:09 | WC ---
PHOTO-LEFT BREAST CLUSTER 08/02/25
--- NOTE | 2025-08-03 15:13 | WC ---
PHOTO 08/02/25
--- NOTE | 2025-08-03 15:17 | HP.PCM_ITS ---
History of Present Illness Date of Service: 08/02/25 Chief Complaint: Pyoderma gangrenosum with multiple ulcerations History of Wound: This is a 50-year-old obese female who presented with multiple clustered ulcerations on various portions of her body. The ulcerations are noted on the left breast and inframammary crease, the sternal area, the right and left hip, and the low back. Patient has been treated previously for ulcerations on the left breast and elsewhere. In 2023, treatment by Dr. Bentley Abreu, Plastic Surgeon, involved the use of Dakin's wet to dry dressing changes. Wound biopsies performed on 2 different occasions in 2023 were negative for malignancy and demonstrated nonspecific findings. The patient has been evaluated at [facility] in the past relative to their wounds which she has developed on a repetitive basis. The diagnosis of pyoderma gangrenosum was determined, though the patient was informed that management through that practice could not be offered because her condition was too difficult. The patient was subsequently referred to a configuration management analyst at the [facility], Dr. Isaias Mcneal ([phone]). However, the patient did not follow-up, claiming to have difficulties with transportation. It is noted that she was treated for a wound culture of a foot ulceration performed on April 20, 2025, which was positive for Proteus mirabilis, Klebsiella oxytoca, and Staphylococcus aureus. At that time, she was being treated for a left heel ulceration by Dr. Golden Salmeron. The patient is not diabetic. However, she does admit to being a long-term smoker, currently smoking about a half a pack of cigarettes per day. [facility] Medical History (Updated 08/03/25 @ 15:[address] 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 Muscle spasm Pressure ulcer of unspecified site, unspecified stage Finger osteomyelitis, left Wears glasses Depression Hx of blood diseases Gastric reflux Shortness of breath on exertion Smoker Chronic cough History of irregular heartbeat Laceration without foreign body of left index finger without damage to nail, sequela Skin necrosis Skin ulcer of finger Seasonal allergies Carpal tunnel syndrome History of back problems UTI (urinary tract infection) Hx of migraines Anxiety IBS (irritable bowel syndrome) GERD (gastroesophageal reflux disease) Work related injury Smoker Crushing injury of finger, left Laceration of extensor structure of left index finger at hand level Laceration of left index finger w/o foreign body w/o damage to nail Asthma Arthritis Hypertension Home Medications ?Medication ?Instructions ?Recorded ?Last Taken ?Type duloxetine 60 mg capsule,delayed 60 mg PO DAILY ANXIET Y 04/14/18 05/03/23 History release oxybutynin chloride 15 mg 15 mg PO DAILY urine 8 05/06/23 History tablet,extended release 24 hr (Ditropan XL) valacyclovir 500 mg tablet 500 mg PO DAILY herpes 04/0305/06/23 History (Valtrex) albuterol sulfate 90 mcg/actuation 2 puff inhalation Q 6H PRN ASTHMA 06/08/21 Unknown History aerosol inhaler (ProAir HFA) topiramate 25 mg tablet (Topamax) 25 mg PO BID 1 05/06/23 History sulfamethoxazole 400 1 tab PO BID 01/22/24 Unknow n History mg-trimethoprim 80 mg tablet (Bactrim) fexofenadine 180 mg tablet 180 mg PO DAILY 04/18/25 Un known History folic acid 1 mg tablet 1 mg PO DAILY 04/18/25 Unkno wn History hydroxyzine HCl 25 mg tablet 25 mg PO TID PRN PRN itch 04/18/25 Unknown History meloxicam 15 mg tablet 15 mg PO DAILY 04/18/25 Unkn own History metoprolol succinate 50 mg 50 mg PO DAILY 04/18/25 Unk nown History tablet,extended release 24 hr silver sulfadiazine 1 % topical applic topical BID Unknown History cream (SSD) lisdexamfetamine 50 mg capsule 50 mg PO DAILY 08/02/25 Unknown History (Vyvanse) Allergy/AdvReac Type Severity Reaction Status Date / Time fluticasone (From Advair Allergy Intermediate Chest Verified 12/30/24 14:20 Diskus) tightness salmeterol (From Advair Allergy Intermediate Chest Verified 12/30/24 14:20 Diskus) tightness Family History Other Alcoholism Anxiety Arthritis COPD (chronic obstructive pulmonary disease) CVA (cerebral vascular accident) Clotting disorder Depression Diabetes Hypertension Surgical History (Updated 08/03/25 @ 15:[address] To Gonzalez MD) History of hand surgery Hx of dilation and curettage Hx of section History of tubal ligation History of hip replacement History of foot surgery Social History Smoking Status: Light Smoker (<10/day) Tobacco: How many years used: 30 alcohol intake: current Alcohol type: beer and wine details: Casual substance use type: unknown additional social history: pt denies vaping, denies marijuana use, denies edible uses aspirin daily, denies ibuprofen, hx of blood clotting issues Vital Signs Vital Signs Vital Signs: Weight Weight: 241 lb Body Mass Index (BMI) 44.0 Assessment/Plan Assessment/Plan (1) Smoking addiction: CODE(S): F17.200 - Nicotine dependence, unspecified, uncomplicated (2) Encounter for smoking cessation counseling: CODE(S): Z71.6 - Tobacco abuse counseling (3) Smoker: CODE(S): F17.200 - Nicotine dependence, unspecified, uncomplicated (4) Hx of migraines: CODE(S): Z86.69 - Personal history of other diseases of the nervous system and sense organs (5) Skin necrosis: CODE(S): I96 - Gangrene, not elsewhere classified (6) COPD (chronic obstructive pulmonary disease): CODE(S): J44.9 - Chronic obstructive pulmonary disease, unspecified (7) History of hand surgery: CODE(S): Z98.890 - Other specified postprocedural states (8) CRPS (complex regional pain syndrome), type I, upper: CODE(S): G90.519 - Complex regional pain syndrome I of unspecified upper limb (9) Prediabetes: CODE(S): R73.03 - Prediabetes (10) Morbid obesity with BMI of 40.0-44.9, adult: CODE(S): E66.01 - Morbid (severe) obesity due to excess calories; Z68.41 - Body mass index [BMI] 40.0-44.9, adult (11) Ulcer of skin of breast: CODE(S): L98.499 - Non-pressure chronic ulcer of skin of other sites with unspecified severity (12) Skin ulcer of sternum with fat layer exposed: CODE(S): L98.492 - Non-pressure chronic ulcer of skin of other sites with fat layer exposed (13) Ulcer of trochanteric region of hip with fat layer exposed: CODE(S): L97.102 - Non-pressure chronic ulcer of unspecified thigh with fat layer exposed (14) Ulcer of trochanteric region of hip with fat layer exposed: CODE(S): L97.102 - Non-pressure chronic ulcer of unspecified thigh with fat layer exposed (15) Pressure ulcer, back, lower: CODE(S): L89.109 - Pressure ulcer of unspecified part of back, unspecified stage
--- NOTE | 2025-08-03 15:17 | PCM.WC.HP ---
History of Present Illness Date of Service: 08/02/25 Chief Complaint: Pyoderma gangrenosum with multiple ulcerations History of Wound: This is a 50-year-old obese female who presented with multiple clustered ulcerations on various portions of her body. The ulcerations are noted on the left breast and inframammary crease, the sternal area, the right and left hip, and the low back. Patient has been treated previously for ulcerations on the left breast and elsewhere. In 2023, treatment by Dr. Bentley Abreu, Plastic Surgeon, involved the use of Dakin's wet to dry dressing changes. Wound biopsies performed on 2 different occasions in 2023 were negative for malignancy and demonstrated nonspecific findings. The patient has been evaluated at [facility] in the past relative to their wounds which she has developed on a repetitive basis. The diagnosis of pyoderma gangrenosum was determined, though the patient was informed that management through that practice could not be offered because her condition was too difficult. The patient was subsequently referred to a sheltered workshop worker at the [facility], Dr. Isaias Mcneal ([phone]). However, the patient did not follow-up, claiming to have difficulties with transportation. It is noted that she was treated for a wound culture of a foot ulceration performed on April 20, 2025, which was positive for Proteus mirabilis, Klebsiella oxytoca, and Staphylococcus aureus. At that time, she was being treated for a left heel ulceration by Dr. Golden Salmeron. She has recently been placed on Bactrim orally, which continues. The patient is pre-diabetic. She does admit to being a long-term smoker, currently smoking about a half a pack of cigarettes per day. [facility] Medical History Chronic ulcer of back Pressure ulcer, back, lower Ulcer of trochanteric region of hip with fat layer exposed Ulcer of trochanteric region of hip with fat layer exposed Skin ulcer of sternum with fat layer exposed Ulcer of skin of breast Morbid obesity with BMI of 40.0-44.9, adult Pyoderma gangrenosum Encounter for smoking cessation counseling Unsteady gait Intertrigo Panniculitis Abdominal panniculus Flexion contracture of joint of left hand Muscle spasm Pressure ulcer of unspecified site, unspecified stage Finger osteomyelitis, left Wears glasses Depression Hx of blood diseases Gastric reflux Shortness of breath on exertion Smoker Chronic cough History of irregular heartbeat Laceration without foreign body of left index finger without damage to nail, sequela Skin necrosis Skin ulcer of finger Seasonal allergies Carpal tunnel syndrome History of back problems UTI (urinary tract infection) Hx of migraines Anxiety IBS (irritable bowel syndrome) GERD (gastroesophageal reflux disease) Work related injury Smoker Crushing injury of finger, left Laceration of extensor structure of left index finger at hand level Laceration of left index finger w/o foreign body w/o damage to nail Asthma Arthritis Hypertension Home Medications ?Medication ?Instructions ?Recorded ?Last Taken ?Type duloxetine 60 mg capsule,delayed 60 mg PO DAILY ANXIETY 04/14/18 05/03/23 History release oxybutynin chloride 15 mg 15 mg PO DAILY urine 04/14/18 05/06/23 History tablet,extended release 24 hr (Ditropan XL) valacyclovir 500 mg tablet 500 mg PO DAILY herpes 04/14/18 05/06/23 History (Valtrex) albuterol sulfate 90 mcg/actuation 2 puff inhalation Q6H PRN ASTHMA 06/08/21 Unknown History aerosol inhaler (ProAir HFA) topiramate 25 mg tablet (Topamax) 25 mg PO BID 06/08/21 05/06/23 History sulfamethoxazole 400 1 tab PO BID 01/22/24 Unknown History mg-trimethoprim 80 mg tablet (Bactrim) fexofenadine 180 mg tablet 180 mg PO DAILY 04/18/25 Unknown History folic acid 1 mg tablet 1 mg PO DAILY 04/18/25 Unknown History hydroxyzine HCl 25 mg tablet 25 mg PO TID PRN PRN itch 04/18/25 Unknown History meloxicam 15 mg tablet 15 mg PO DAILY 04/18/25 Unknown History metoprolol succinate 50 mg 50 mg PO DAILY 04/18/25 Unknown History tablet,extended release 24 hr silver sulfadiazine 1 % topical applic topical BID 04/18/25 Unknown History cream (SSD) lisdexamfetamine 50 mg capsule 50 mg PO DAILY 08/02/25 Unknown History (Vyvanse) Allergy/AdvReac Type Severity Reaction Status Date / Time fluticasone (From Advair Allergy Intermediate Chest Verified 12/30/24 14:20 Diskus) tightness salmeterol (From Advair Allergy Intermediate Chest Verified 12/30/24 14:20 Diskus) tightness Family History Other Alcoholism Anxiety Arthritis COPD (chronic obstructive pulmonary disease) CVA (cerebral vascular accident) Clotting disorder Depression Diabetes Hypertension Surgical History History of hand surgery Hx of dilation and curettage Hx of section History of tubal ligation History of hip replacement History of foot surgery Social History Smoking Status: Light Smoker (<10/day) Tobacco: How many years used: 30 alcohol intake: current Alcohol type: beer and wine details: Casual substance use type: unknown additional social history: pt denies vaping, denies marijuana use, denies edible uses aspirin daily, denies ibuprofen, hx of blood clotting issues Vital Signs Vital Signs Vital Signs: Weight Weight: 241 lb Body Mass Index (BMI) 44.0 Physical Exam Const alert, oriented x3, no apparent distress, no limitations and well nourished Constitutional Narrative: The patient's BMI is 44.1. General Appearance: cooperative and well developed Orientation / Consciousness: awake, oriented to person, oriented to place and oriented to time Exam Limitations: no limitations HEENT normocephalic and head/scalp atraumatic Head and Scalp: normal to inspection, normocephalic and atraumatic Face and Sinus: normal facial exam Nose: external nose normal External Ear: external ears normal Eyes PERRL and EOMs intact bilaterally General Eye: normal appearance of both eyes Neck full ROM Resp normal respiratory effort, normal air movement, no retractions and no use of accessory muscles Effort and Inspection: able to speak in complete sentences Extremity no calf tenderness General Extremity: Negative for clubbing or cyanosis Skin Wound Narrative: Numerous ulcerations are noted. Each of the ulcerations demonstrate a moderate amount of slough, necrosis, and devitalized tissue. Each ulceration appears to be full-thickness, penetrating the dermal layers, and into the subcutaneous tissues. A clustered ulceration is located on the left breast and inframammary crease. There is an ulceration on the sternum/upper abdomen. There is an ulceration on the right and left hip. There is a clustered ulceration in the sacral area. Dimensions of these ulcerations are documented elsewhere. Each of the ulcerations is surrounded by a well-defined, thin rim of erythema. A pictorial representation of each ulceration is embedded within [employer]. Neuro oriented x3, CN's II-XII intact bilaterally, moves all extremities, no focal motor deficits and no sensory deficits noted Sensorium / Orientation: awake, alert, oriented to person, oriented to place and oriented to time Speech: speech normal Psych Appearance: grossly normal and appropriate Attitude: calm Activity / Motor Behavior: appropriate eye contact Speech: normal speech Mood & Affect: euthymic mood Thought Process: normal thought process Thought Content: normal thought content Attention / Concentration: attention grossly intact Insight: insight good Debridement Note Debridement Note No debridement was completed: No debridement was completed today (Because of a prior diagnosis of pyoderma gangrenosum, a standard debridement procedure was not performed.) Charges/Coding Visit Charges Office Visits / Consults: [id number] OV L4 New 45min Assessment/Plan Assessment/Plan (1) Pyoderma gangrenosum: CODE(S): L88 - Pyoderma gangrenosum (2) Ulcer of skin of breast: CODE(S): L98.499 - Non-pressure chronic ulcer of skin of other sites with unspecified severity (3) Skin ulcer of sternum with fat layer exposed: CODE(S): L98.492 - Non-pressure chronic ulcer of skin of other sites with fat layer exposed (4) Ulcer of trochanteric region of hip with fat layer exposed: CODE(S): L97.102 - Non-pressure chronic ulcer of unspecified thigh with fat layer exposed (5) Ulcer of trochanteric region of hip with fat layer exposed: CODE(S): L97.102 - Non-pressure chronic ulcer of unspecified thigh with fat layer exposed (6) Chronic ulcer of back: CODE(S): L98.429 - Non-pressure chronic ulcer of back with unspecified severity (7) Skin necrosis: CODE(S): I96 - Gangrene, not elsewhere classified (8) Hx of migraines: CODE(S): Z86.69 - Personal history of other diseases of the nervous system and sense organs (9) Smoker: CODE(S): F17.200 - Nicotine dependence, unspecified, uncomplicated (10) Encounter for smoking cessation counseling: CODE(S): Z71.6 - Tobacco abuse counseling (11) COPD (chronic obstructive pulmonary disease): CODE(S): J44.9 - Chronic obstructive pulmonary disease, unspecified (12) History of hand surgery: CODE(S): Z98.890 - Other specified postprocedural states (13) CRPS (complex regional pain syndrome), type I, upper: CODE(S): G90.519 - Complex regional pain syndrome I of unspecified upper limb (14) Prediabetes: CODE(S): R73.03 - Prediabetes (15) Morbid obesity with BMI of 40.0-44.9, adult: CODE(S): E66.01 - Morbid (severe) obesity due to excess calories; Z68.41 - Body mass index [BMI] 40.0-44.9, adult (16) History of irregular heartbeat: CODE(S): Z86.79 - Personal history of other diseases of the circulatory system (17) IBS (irritable bowel syndrome): CODE(S): K58.9 - Irritable bowel syndrome, unspecified (18) GERD (gastroesophageal reflux disease): CODE(S): K21.9 - Gastro-esophageal reflux disease without esophagitis (19) Arthritis: CODE(S): M19.90 - Unspecified osteoarthritis, unspecified site (20) Hypertension: CODE(S): I10 - Essential (primary) hypertension (21) Hx of dilation and curettage: CODE(S): Z98.890 - Other specified postprocedural states (22) Hx of section: CODE(S): Z98.891 - History of uterine scar from previous surgery (23) History of tubal ligation: CODE(S): Z98.51 - Tubal ligation status (24) History of hip replacement: CODE(S): Z96.649 - Presence of unspecified artificial hip joint (25) History of foot surgery: CODE(S): Z98.890 - Other specified postprocedural states PLAN: Plan This is a 50-year-old female who presented with multiple ulcerations on her body. The ulcerations involve the left breast, the left inframammary crease, the sternal area, both hips, and the low back. Patient has been a previous patient at the [facility]. It is noted that a diagnosis of pyoderma gangrenosum has been previously made by a sheltered workshop worker. As result, at this visit, standard debridement was deferred, as debridements are typically contraindicated with evidence that debridement may exacerbate the ulcerations. The patient has been advised to optimize her nutritional intake. She has been strongly advised to discontinue her smoking habit. We are to implement the use of Dakin's-moistened gauze topically to the ulcerations on a daily basis. The patient has been instructed in the appropriate means of application. Given that the management of these ulcerations, which are suspected to be due to pyoderma gangrenosum, will likely require a multidisciplinary approach, with systemic management, efforts are to be made to refer the patient for comanagement by a sheltered workshop worker with expertise in the treatment of pyoderma gangrenosum. We will attempt to seek consultation with a local sheltered workshop worker. If unsuccessful, efforts will be made to arrange consultation with Dr. Isaias Mcneal, at the [facility], to whom the patient has been previously referred ([phone]). Total time: 48 minutes
== END 2025-08-02 23:59 | disposition home or self-care (01) ==
LOC: WC 09:07
PROVIDERS: PCP Family Medicine; Referring Provider Family Medicine; Visit Provider Surgery
DX: L88 Pyoderma gangrenosum (principal); L98.492 Non-pressure chronic ulcer of skin of other sites with fat layer exposed; L97.102 Non-pressure chronic ulcer of unspecified thigh with fat layer exposed; J44.9 Chronic obstructive pulmonary disease, unspecified; E66.01 Morbid (severe) obesity due to excess calories; Z68.41 Body mass index [BMI] 40.0-44.9, adult; F17.210 Nicotine dependence, cigarettes, uncomplicated; K21.9 Gastro-esophageal reflux disease without esophagitis; K58.9 Irritable bowel syndrome, unspecified; I10 Essential (primary) hypertension; Z71.6 Tobacco abuse counseling; Z79.1 Long term (current) use of non-steroidal anti-inflammatories (NSAID); R73.03 Prediabetes; G90.519 Complex regional pain syndrome I of unspecified upper limb; M19.90 Unspecified osteoarthritis, unspecified site; Z98.51 Tubal ligation status; Z98.891 History of uterine scar from previous surgery; Z98.890 Other specified postprocedural states; Z96.649 Presence of unspecified artificial hip joint; Z86.79 Personal history of other diseases of the circulatory system; Z86.69 Personal history of other diseases of the nervous system and sense organs
CPT/HCPCS: 99213; G0463

== ENCOUNTER 2025-08-30 13:30 | Outpatient (RCR) | payer MEDICAID, SELFPAY ==
[2025-08-16 14:03] VITALS: BP 154/87; PULSE 66; RESP 18; TEMP 36.1
--- NOTE | 2025-08-17 14:40 | WC ---
PHOTO-LOWER BACK 08/16/25
--- NOTE | 2025-08-17 14:41 | WC ---
PHOTO-L HIP 08/16/25
--- NOTE | 2025-08-17 14:43 | WC ---
PHOTO-RIGHT BREAST 08/16/25
--- NOTE | 2025-08-17 14:44 | WC ---
PHOTO-MID STERNUM 08/16/25
--- NOTE | 2025-08-17 14:47 | WC ---
PHOTO-LEFT HIP 08/16/25
--- NOTE | 2025-08-17 14:48 | WC ---
PHOTO-POST PROCEDURE 08/16/25
--- NOTE | 2025-08-17 14:49 | WC ---
PHOTO-POST PROCEDURE 08/16/25
--- NOTE | 2025-08-17 15:23 | PCM.WC.HP ---
History of Present Illness Date of Service: 08/16/25 Chief Complaint: Pyoderma gangrenosum with multiple ulcerations History of Wound: This is a 50-year-old obese female who presented with multiple clustered ulcerations on various portions of her body. The ulcerations were noted on the left breast and inframammary crease, the sternal area, the right and left hip, and the low back. The patient has been treated previously for ulcerations on the left breast and elsewhere on her body. In 2023, treatment by Dr. Bentley Abreu, Plastic Surgeon, involved the use of Dakin's wet-to-dry dressing changes. Wound biopsies performed on 2 different occasions in 2023 were negative for malignancy and demonstrated nonspecific findings. The patient has been evaluated at [facility] in the past relative to her wounds, which she has developed on a recurrent basis. The diagnosis of pyoderma gangrenosum was determined, though the patient was informed that management at [facility] could not be offered because her condition was too difficult. The patient was subsequently referred to a box lidder at the [facility], Dr. Isaias Mcneal ([phone]). However, the patient did not follow-up, claiming to have difficulties with transportation. It is noted that she was treated for a wound culture of a foot ulceration performed on April 20, 2025, which was positive for Proteus mirabilis, Klebsiella oxytoca, and Staphylococcus aureus. At that time, she was being treated for a left heel ulceration by Dr. Golden Salmeron. She has recently been started on Bactrim orally relative to her multiple wounds. The patient is pre-diabetic. She does admit to being a long-term smoker, currently smoking about a half a pack of cigarettes per day. [facility] Medical History Chronic ulcer of back Pressure ulcer, back, lower Ulcer of trochanteric region of hip with fat layer exposed Ulcer of trochanteric region of hip with fat layer exposed Skin ulcer of sternum with fat layer exposed Ulcer of skin of breast Morbid obesity with BMI of 40.0-44.9, adult Pyoderma gangrenosum Encounter for smoking cessation counseling Unsteady gait Intertrigo Panniculitis Abdominal panniculus Flexion contracture of joint of left hand Muscle spasm Pressure ulcer of unspecified site, unspecified stage Finger osteomyelitis, left Wears glasses Depression Hx of blood diseases Gastric reflux Shortness of breath on exertion Smoker Chronic cough History of irregular heartbeat Laceration without foreign body of left index finger without damage to nail, sequela Skin necrosis Skin ulcer of finger Seasonal allergies Carpal tunnel syndrome History of back problems UTI (urinary tract infection) Hx of migraines Anxiety IBS (irritable bowel syndrome) GERD (gastroesophageal reflux disease) Work related injury Smoker Crushing injury of finger, left Laceration of extensor structure of left index finger at hand level Laceration of left index finger w/o foreign body w/o damage to nail Asthma Arthritis Hypertension Home Medications ?Medication ?Instructions ?Recorded ?Last Taken ?Type duloxetine 60 mg capsule,delayed 60 mg PO DAILY ANXIETY 04/14/18 05/03/23 History release oxybutynin chloride 15 mg 15 mg PO DAILY urine 04/14/18 05/06/23 History tablet,extended release 24 hr (Ditropan XL) valacyclovir 500 mg tablet 500 mg PO DAILY herpes 04/14/18 05/06/23 History (Valtrex) albuterol sulfate 90 mcg/actuation 2 puff inhalation Q6H PRN ASTHMA 06/08/21 Unknown History aerosol inhaler (ProAir HFA) topiramate 25 mg tablet (Topamax) 25 mg PO BID 06/08/21 05/06/23 History sulfamethoxazole 400 1 tab PO BID 01/22/24 Unknown History mg-trimethoprim 80 mg tablet (Bactrim) fexofenadine 180 mg tablet 180 mg PO DAILY 04/18/25 Unknown History folic acid 1 mg tablet 1 mg PO DAILY 04/18/25 Unknown History hydroxyzine HCl 25 mg tablet 25 mg PO TID PRN PRN itch 04/18/25 Unknown History meloxicam 15 mg tablet 15 mg PO DAILY 04/18/25 Unknown History metoprolol succinate 50 mg 50 mg PO DAILY 04/18/25 Unknown History tablet,extended release 24 hr silver sulfadiazine 1 % topical applic topical BID 04/18/25 Unknown History cream (SSD) lisdexamfetamine 50 mg capsule 50 mg PO DAILY 08/02/25 Unknown History (Vyvanse) Allergy/AdvReac Type Severity Reaction Status Date / Time fluticasone (From Advair Allergy Intermediate Chest Verified 12/30/24 14:20 Diskus) tightness salmeterol (From Advair Allergy Intermediate Chest Verified 12/30/24 14:20 Diskus) tightness Family History Other Alcoholism Anxiety Arthritis COPD (chronic obstructive pulmonary disease) CVA (cerebral vascular accident) Clotting disorder Depression Diabetes Hypertension Surgical History History of hand surgery Hx of dilation and curettage Hx of section History of tubal ligation History of hip replacement History of foot surgery Social History Smoking Status: Light Smoker (<10/day) Tobacco: How many years used: 30 alcohol intake: current Alcohol type: beer and wine details: Casual substance use type: unknown additional social history: pt denies vaping, denies marijuana use, denies edible uses aspirin daily, denies ibuprofen, hx of blood clotting issues Physical Exam Const alert, oriented x3, no apparent distress, no limitations and well nourished Constitutional Narrative: The patient's BMI is 44.1. General Appearance: cooperative, comfortable, well kempt and well developed Orientation / Consciousness: awake, oriented to person, oriented to place and oriented to time Exam Limitations: no limitations HEENT normocephalic and head/scalp atraumatic Head and Scalp: normal to inspection, normocephalic and atraumatic Face and Sinus: normal facial exam Nose: external nose normal External Ear: external ears normal Eyes EOMs intact bilaterally General Eye: normal appearance of both eyes Neck full ROM Resp normal respiratory effort, normal air movement, no retractions and no use of accessory muscles Effort and Inspection: able to speak in complete sentences Extremity no calf tenderness General Extremity: Negative for clubbing or cyanosis Skin Wound Narrative: Numerous ulcerations are noted. Each of the ulcerations demonstrate a moderate amount of slough, necrosis, and devitalized tissue, although there has been improvement since the patient's last visit. Each ulceration appears to be full-thickness, penetrating the dermal layers, and into the subcutaneous tissues. A clustered ulceration is located on the left breast and inframammary crease. There is an ulceration on the sternum. There is an ulceration on the right hip. There is a clustered ulceration in the sacral area. The ulceration on the patient's left hip appears to be healed. Dimensions of these ulcerations are documented elsewhere. Each of the ulcerations is surrounded by a well-defined, thin rim of erythema. A pictorial representation of each ulceration is embedded within Achieve X. The ulceration of the patient's right hip demonstrates a very large, necrotic eschar. It is very loosely attached. Neuro oriented x3, CN's II-XII intact bilaterally, moves all extremities, no focal motor deficits and no sensory deficits noted Sensorium / Orientation: awake, alert, oriented to person, oriented to place and oriented to time Speech: speech normal Psych Appearance: grossly normal and appropriate Attitude: calm Activity / Motor Behavior: appropriate eye contact Speech: normal speech Mood & Affect: euthymic mood Thought Process: normal thought process Thought Content: normal thought content Attention / Concentration: attention grossly intact Debridement Note Debridement Note Debridement Free Text: A formal debridement was not performed today, as the working diagnosis is that of pyoderma gangrenosum. It is felt that debridement may be contraindicated, and likely to result in deterioration of the wounds. However, a very large, necrotic eschar was noted within the patient's large right hip ulceration. It was loosely attached by a layer of gelatinous and nonviable tissue. Therefore, sharp dissection with a scissors and forceps was used to undermine and detach the necrotic tissue, removing it from the site. Because the dissection was carried through necrotic tissue, no pain or bleeding were encountered. 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 Any new allergies or adverse reactions No Had a fall/change in ADL's that may No increase risk of falls Signs or symptoms of abuse and/or No neglect since last visit Have you been in the hospital since your No last visit? Has dressing in place as prescribed Yes Has compression in place as prescribed N/A Has offloadiing in place as prescribed N/A Experienced any changes in pain level or No management Left Footwear Regular Shoe Right Footwear Regular Shoe Pain Scale: 0-10 Numeric Is Patient Pain Free? Yes R hip -Description Aching -Intensity 10 -Duration (hours) Acute -Pain Behavior Guarding -Pain Aggravating Factors ADL's -Alleviating Factors/Interventions Medication -Effectiveness of Alleviating Factor/ Moderately Intervention effective WC - Nurse 1 - General Ulcer Measurement Start: 08/16/25 14:03 Freq: Status: Active Protocol: Activity Type Activity Date Activity User E-sign Co-sign Detail Recorded Client Recorded Date Recorded By Document 08/16/25 14:03 RB [id number] 08/16/25 14:09 RB Edit Result 08/16/25 14:03 RB (1) [id number] 08/16/25 14:11 RB (1) 13. R lateral abd /hip - Current Size (cm) - Length 0.1 => 4.5 - Current Size (cm) - Width 0.1 => 5.5 - Current Size (cm) - Depth 0.1 => 0.6 - Total Square Cm 0.01 => 24.75 08/16/25 14:03 Wound Center Nurse 1 13. R lateral abd /hip -Combined with other wound No -Current Size (cm) - Length 4.5 -Current Size (cm) - Width 5.5 -Current Size (cm) - Depth 0.6 -Total Square Cm 24.75 -Photo Taken Yes -Epithelialization Medium 34-66% -Tunneling No -Undermining/Tunneling No -Circular Undermining No -Exudate Amt Large -Exudate Type Purulent -Wound Margin Thickened & Rolled Under -Granulation Amt Small (1-33%) -Granulation Quality [place] -Slough/Fibrin Yes -Necrosis Amt Large (67-100%) -Necrotic Tissue Type Eschar -Structure Exposed N/A -Texture (Abimbola-wound Skin Appearance) Assessed -Moisture (Abimbola-wound Skin Appearance) Assessed -Color ([place]imbola-wound Skin Appearance) Assessed -Temperature ([place]imbola-wound Skin No Abnormality Appearance) (Pt Warm) -Tenderness on Palpation (Abimbola-wound No Skin Appearance) -Ulcer Cleansing Wound Cleanser -Foul Odor after Cleansing No 12. Mid sternum -Combined with other wound No -Current Size (cm) - Length 2 -Current Size (cm) - Width 2.5 -Current Size (cm) - Depth 0.2 -Total Square Cm 5.0 -Photo Taken Yes -Tunneling No -Undermining/Tunneling No -Circular Undermining No -Exudate Amt Medium -Exudate Type Serosanguineous -Wound Margin Distinct, Outline Attached -Granulation Amt Medium (34-66%) -Granulation Quality [place] -Slough/Fibrin Yes -Necrosis Amt Small (1-33%) -Necrotic Tissue Type Adherent Slough -Structure Exposed N/A -Texture (Abibmola-wound Skin Appearance) Assessed, Scarring -Moisture (Abimbola-wound Skin Appearance) Assessed -Color ([place]imbola-wound Skin Appearance) Assessed -Temperature ([place]imbola-wound Skin No Abnormality Appearance) (Pt Warm) -Tenderness on Palpation (Abimbola-wound No Skin Appearance) -Ulcer Cleansing Wound Cleanser -Foul Odor after Cleansing No -Anesthetic Used 5% Lidocaine Gel 11.L breast cluster -Combined with other wound No -Current Size (cm) - Length 9.5 -Current Size (cm) - Width 7 -Current Size (cm) - Depth 0.3 -Total Square Cm 66.5 -Photo Taken Yes -Tunneling No -Undermining/Tunneling No -Circular Undermining No -Exudate Amt Medium -Exudate Type Serosanguineous -Wound Margin Thickened & Rolled Under -Granulation Amt Small (1-33%) -Granulation Quality [place] -Slough/Fibrin Yes -Necrosis Amt Large (67-100%) -Necrotic Tissue Type Adherent Slough -Structure Exposed N/A -Texture (Abimbola-wound Skin Appearance) Assessed, Scarring -Moisture (Abimbola-wound Skin Appearance) Assessed -Color (Abimbola-wound Skin Appearance) Assessed -Temperature ([place]imbola-wound Skin No Abnormality Appearance) (Pt Warm) -Tenderness on Palpation (Abimbola-wound No Skin Appearance) -Ulcer Cleansing Wound Cleanser -Foul Odor after Cleansing No -Anesthetic Used 5% Lidocaine Gel 10. L hip -Combined with other wound No -Current Size (cm) - Length 0.1 -Current Size (cm) - Width 0.1 -Current Size (cm) - Depth 0.1 -Total Square Cm 0.01 -Photo Taken Yes -Epithelialization Large 67-100% -Tunneling No -Undermining/Tunneling No -Circular Undermining No -Exudate Amt Small -Exudate Type Serosanguineous -Wound Margin Distinct, Outline Attached -Granulation Amt Large (67-100%) -Granulation Quality [place] -Slough/Fibrin Yes -Necrosis Amt Small (1-33%) -Necrotic Tissue Type Adherent Slough -Structure Exposed N/A -Texture (Abimbola-wound Skin Appearance) Assessed, Scarring -Moisture (Abimbola-wound Skin Appearance) Assessed -Color (Abimbola-wound Skin Appearance) Assessed -Temperature (Abimbola-wound Skin No Abnormality Appearance) (Pt Warm) -Tenderness on Palpation (Abimbola-wound No Skin Appearance) -Ulcer Cleansing Wound Cleanser -Foul Odor after Cleansing No -Anesthetic Used 5% Lidocaine Gel 9. LOWER BACK cluster -Combined with other wound No -Current Size (cm) - Length 9.5 -Current Size (cm) - Width 7 -Current Size (cm) - Depth 0.3 -Total Square Cm 66.5 -Photo Taken Yes -Tunneling No -Undermining/Tunneling No -Circular Undermining No -Exudate Amt Large -Exudate Type Serosanguineous -Wound Margin Thickened & Rolled Under -Granulation Amt Small (1-33%) -Granulation Quality [place] -Slough/Fibrin Yes -Necrosis Amt Large (67-100%) -Necrotic Tissue Type Adherent Slough -Structure Exposed N/A -Texture ([place]imbola-wound Skin Appearance) Assessed, Scarring -Moisture (Abimbola-wound Skin Appearance) Assessed -Color ([place]imbola-wound Skin Appearance) Assessed -Temperature (Abimbola-wound Skin No Abnormality Appearance) (Pt Warm) -Tenderness on Palpation (Abimbola-wound No Skin Appearance) -Ulcer Cleansing Wound Cleanser -Foul Odor after Cleansing No -Anesthetic Used 5% Lidocaine Gel WC - Nurse 2 - General Ulcer CM Notes Start: 08/16/25 14:03 Freq: Status: Active Protocol: Activity Type Activity Date Activity User E-sign Co-sign Detail Recorded Client Recorded Date Recorded By Document 08/16/25 14:20 DS [id number] 08/16/25 14:36 DS 08/16/25 14:20 Wound Center Nurse 2 13. R lateral abd /hip -Time 14:20 -Correct Patient Yes -Correct Side, Site, Position Yes -Procedure Performed No -Post Debridement (cm) - Length 4.8 -Post Debridement (cm) - Width 6.0 -Post Debridement (cm) - Depth 1.2 -Total Square (Post) (cm) 28.80 -Area of Debridement (cm) - Length 4.8 -Area of Debridement (cm) - Width 6.0 -Total Square (Area) (cm) 28.80 -Tunneling No -Undermining/Tunneling No -Circular Undermining No -Wound/Ulcer Outcome Not Healed 12. Mid sternum -Time 14:20 -Correct Patient Yes -Correct Side, Site, Position Yes 11.L breast cluster -Time 14:20 -Correct Patient Yes -Correct Side, Site, Position Yes 10. L hip -Time 14:20 -Correct Patient Yes -Correct Side, Site, Position Yes 9. LOWER BACK cluster -Time 14:20 -Correct Patient Yes -Correct Side, Site, Position Yes Pain Scale: 0-10 Numeric Is Patient Pain Free? Yes WC - Nurse 3 - General Ulcer D/C NN Start: 08/16/25 14:03 Freq: Status: Active Protocol: Activity Type Activity Date Activity User E-sign Co-sign Detail Recorded Client Recorded Date Recorded By Document 08/16/25 15:00 RB [id number] 08/16/25 15:01 RB 08/16/25 15:00 Wound Care Center Nurse 3 13. R lateral abd /hip -Ulcer Cleansing Wound Cleanser -Other Dressing silvadene -Primary Dressing Covered/Secured with Dry Gauze, Secured with Tape 12. Mid sternum -Ulcer Cleansing Wound Cleanser -Other Dressing silvadene -Primary Dressing Covered/Secured with Dry Gauze, Secured with Tape 11.L breast cluster -Ulcer Cleansing Wound Cleanser -Other Dressing silvadede -Primary Dressing Covered/Secured with Dry Gauze, Secured with Tape 10. L hip -Ulcer Cleansing Wound Cleanser -Other Dressing silvadene -Primary Dressing Covered/Secured with Dry Gauze, Secured with Tape 9. LOWER BACK cluster -Ulcer Cleansing Wound Cleanser -Other Dressing silvadene -Primary Dressing Covered/Secured with Dry Gauze, Secured with Tape Treatment Response Procedure Tolerated Well Pain Scale: 0-10 Numeric Is Patient Pain Free? Yes WC - Visit Discharge Discharge Condition Stable Ambulatory Status Ambulatory Transportation Private Auto Medication Reconcilliation completed & No provided to patient/care provider Clinical Summary of Care Provided Yes Charges/Coding Visit Charges Office Visits / Consults: [id number] OV L3 Est 20min Assessment/Plan Assessment/Plan (1) Pyoderma gangrenosum: CODE(S): L88 - Pyoderma gangrenosum (2) Ulcer of skin of breast: CODE(S): L98.499 - Non-pressure chronic ulcer of skin of other sites with unspecified severity (3) Skin ulcer of sternum with fat layer exposed: CODE(S): L98.492 - Non-pressure chronic ulcer of skin of other sites with fat layer exposed (4) Ulcer of trochanteric region of hip with fat layer exposed: CODE(S): L97.102 - Non-pressure chronic ulcer of unspecified thigh with fat layer exposed (5) Ulcer of trochanteric region of hip with fat layer exposed: CODE(S): L97.102 - Non-pressure chronic ulcer of unspecified thigh with fat layer exposed (6) Chronic ulcer of back: CODE(S): L98.429 - Non-pressure chronic ulcer of back with unspecified severity (7) Skin necrosis: CODE(S): I96 - Gangrene, not elsewhere classified (8) Hx of migraines: CODE(S): Z86.69 - Personal history of other diseases of the nervous system and sense organs (9) Smoker: CODE(S): F17.200 - Nicotine dependence, unspecified, uncomplicated (10) Encounter for smoking cessation counseling: CODE(S): Z71.6 - Tobacco abuse counseling (11) COPD (chronic obstructive pulmonary disease): CODE(S): J44.9 - Chronic obstructive pulmonary disease, unspecified (12) History of hand surgery: CODE(S): Z98.890 - Other specified postprocedural states (13) CRPS (complex regional pain syndrome), type I, upper: CODE(S): G90.519 - Complex regional pain syndrome I of unspecified upper limb (14) Prediabetes: CODE(S): R73.03 - Prediabetes (15) Morbid obesity with BMI of 40.0-44.9, adult: CODE(S): E66.01 - Morbid (severe) obesity due to excess calories; Z68.41 - Body mass index [BMI] 40.0-44.9, adult (16) History of irregular heartbeat: CODE(S): Z86.79 - Personal history of other diseases of the circulatory system (17) IBS (irritable bowel syndrome): CODE(S): K58.9 - Irritable bowel syndrome, unspecified (18) GERD (gastroesophageal reflux disease): CODE(S): K21.9 - Gastro-esophageal reflux disease without esophagitis (19) Arthritis: CODE(S): M19.90 - Unspecified osteoarthritis, unspecified site (20) Hypertension: CODE(S): I10 - Essential (primary) hypertension (21) Hx of dilation and curettage: CODE(S): Z98.890 - Other specified postprocedural states (22) Hx of section: CODE(S): Z98.891 - History of uterine scar from previous surgery (23) History of tubal ligation: CODE(S): Z98.51 - Tubal ligation status (24) History of hip replacement: CODE(S): Z96.649 - Presence of unspecified artificial hip joint (25) History of foot surgery: CODE(S): Z98.890 - Other specified postprocedural states PLAN: Plan This is a 50-year-old female who presented with multiple ulcerations on her body. The ulcerations involve the left breast, the left inframammary crease, the sternal area, both hips, and the low back. The left hip ulceration appears to be essentially healed. Furthermore, the appearance of the patient's ulcerations is generally improved since the patient's prior visit. A diagnosis of pyoderma gangrenosum has been previously made by a box lidder at [facility]. However, the patient was instructed by that former dermatology practice that they were unable to provide care due to the severity of her disease. At this visit, standard debridement was deferred, as debridements are typically contraindicated with evidence that debridement may exacerbate the ulcerations. A large necrotic eschar, however, was sharply excised from the patient's right hip wound, fearing that the large necrotic tissue mass could likely be a source of infection. The patient has been advised to optimize her nutritional intake. She has been strongly advised to discontinue her smoking habit. We discussed continuing the use of Dakin's-moistened gauze to the sites of ulceration. However, the patient has indicated that historically she has had reasonably good results using Silvadene topically to her wounds in the past. She is insistent that she prefers the use of Silvadene topically. Therefore, we are to acquiesce to the patient's wishes. Given that the management of these ulcerations, which are suspected to be due to pyoderma gangrenosum, will likely require a multidisciplinary approach, with systemic management, efforts are to be made to refer the patient for co-management by a box lidder with expertise in the treatment of pyoderma gangrenosum. We will attempt to seek consultation with a local box lidder. Contact was made with Dr. Chris Lane 2 weeks ago, at which time a discussion was undertaken with Dr. Lane regarding this patient and her diagnosis of pyoderma gangrenosum. Dr. Lane had been expected to respond to either affirm or decline acceptance of this patient to his practice. Several attempts have been made to contact Dr. Lane's office for clarity on the issue. On Friday, August 15, 2025, the patient's medical records, demographics, and photos of the patient's wounds were hand-delivered to Drs. Lane's office, in an effort to expedite his decision regarding acceptance of the patient. Otherwise, efforts will be made to arrange consultation with Dr. Isaias Mcneal, at the [facility], to whom the patient has been previously referred ([phone]). In the interim, we are to initiate the use of systemic steroids to determine whether there may be some benefit to such systemic management. A prescription will be provided for prednisone 50 mg p.o. daily. Total time: 28 minutes
[2025-08-23 14:25] VITALS: BP 138/95; PULSE 72; RESP 18; TEMP 36.3
--- NOTE | 2025-08-24 09:07 | WC ---
PHOTO-LOWER BACK CLUSTER 08/23/25
--- NOTE | 2025-08-24 09:08 | WC ---
PHOTO-MED STERNUM 08/23/25
--- NOTE | 2025-08-24 09:09 | WC ---
PHOTO-LEFT BREAST CLUSTER 08/23/25
--- NOTE | 2025-08-24 09:10 | WC ---
PHOTO-LEFT HIP 08/23/25
--- NOTE | 2025-08-24 09:11 | WC ---
PHOTO-RIGHT LAT ABD 08/23/25
--- NOTE | 2025-08-24 10:18 | HP.PCM_ITS ---
History of Present Illness Date of Service: 08/23/25 Chief Complaint: Pyoderma gangrenosum with multiple ulcerations History of Wound: This is a 50-year-old obese female who presented with multiple clustered ulcerations on various portions of her body. The ulcerations were noted on the left breast and inframammary crease, the sternal area, the right and left hip, and the low back. The patient had been treated previously for ulcerations on the left breast and elsewhere on her body. In 2023, treatment by Dr. Bentley Abreu, Plastic Surgeon, involved the use of Dakin's wet-to-dry dressing changes. Wound biopsies performed on 2 different occasions in 2023 were negative for malignancy and demonstrated nonspecific findings. The patient has been evaluated at [facility] in the past relative to her wounds, which she has developed on a recurrent basis. The diagnosis of pyoderma gangrenosum was determined, though the patient was informed that management at [facility] could not be offered because her condition was too difficult. The patient was subsequently referred to a supervisor concrete stone fabricating at the [facility], Dr. Isaias Mcneal ([phone]). However, the patient did not follow-up, claiming to have difficulties with transportation. She has recently completed a course of oral Bactrim, prescribed by her PCP relative to her multiple wounds. The patient is pre-diabetic. She does admit to being a long-term smoker, currently smoking about a half a pack of cigarettes per day. [facility] Medical History Chronic ulcer of back Pressure ulcer, back, lower Ulcer of trochanteric region of hip with fat layer exposed Ulcer of trochanteric region of hip with fat layer exposed Skin ulcer of sternum with fat layer exposed Ulcer of skin of breast Morbid obesity with BMI of 40.0-44.9, adult Pyoderma gangrenosum Encounter for smoking cessation counseling Unsteady gait Intertrigo Panniculitis Abdominal panniculus Flexion contracture of joint of left hand Muscle spasm Pressure ulcer of unspecified site, unspecified stage Finger osteomyelitis, left Wears glasses Depression Hx of blood diseases Gastric reflux Shortness of breath on exertion Smoker Chronic cough History of irregular heartbeat Laceration without foreign body of left index finger without damage to nail, sequela Skin necrosis Skin ulcer of finger Seasonal allergies Carpal tunnel syndrome History of back problems UTI (urinary tract infection) Hx of migraines Anxiety IBS (irritable bowel syndrome) GERD (gastroesophageal reflux disease) Work related injury Smoker Crushing injury of finger, left Laceration of extensor structure of left index finger at hand level Laceration of left index finger w/o foreign body w/o damage to nail Asthma Arthritis Hypertension Home Medications ?Medication ?Instructions ?Recorded ?Last Taken ?Type duloxetine 60 mg capsule,delayed 60 mg PO DAILY ANXIET Y 04/14/18 05/03/23 History release oxybutynin chloride 15 mg 15 mg PO DAILY urine 8 05/06/23 History tablet,extended release 24 hr (Ditropan XL) valacyclovir 500 mg tablet 500 mg PO DAILY herpes 04/0305/06/23 History (Valtrex) albuterol sulfate 90 mcg/actuation 2 puff inhalation Q 6H PRN ASTHMA 06/08/21 Unknown History aerosol inhaler (ProAir HFA) topiramate 25 mg tablet (Topamax) 25 mg PO BID 1 05/06/23 History sulfamethoxazole 400 1 tab PO BID 01/22/24 Unknow n History mg-trimethoprim 80 mg tablet (Bactrim) fexofenadine 180 mg tablet 180 mg PO DAILY 04/18/25 Un known History folic acid 1 mg tablet 1 mg PO DAILY 04/18/25 Unkno wn History hydroxyzine HCl 25 mg tablet 25 mg PO TID PRN PRN itch 04/18/25 Unknown History meloxicam 15 mg tablet 15 mg PO DAILY 04/18/25 Unkn own History metoprolol succinate 50 mg 50 mg PO DAILY 04/18/25 Unk nown History tablet,extended release 24 hr silver sulfadiazine 1 % topical applic topical BID Unknown History cream (SSD) lisdexamfetamine 50 mg capsule 50 mg PO DAILY 08/02/25 Unknown History (Vyvanse) prednisone 50 mg tablet 50 mg PO DAILY Pyoderma 08/03 03/27 Unknown Rx gangrenosum #30 tabs silver sulfadiazine 1 % topical 1 applic topical BID U lcerations 08/17/25 Unknown Rx cream (Silvadene) #400 grams Allergy/AdvReac Type Severity Reaction Status Date / Time fluticasone (From Advair Allergy Intermediate Chest Verified 12/30/24 14:20 Diskus) tightness salmeterol (From Advair Allergy Intermediate Chest Verified 12/30/24 14:20 Diskus) tightness Family History Other Alcoholism Anxiety Arthritis COPD (chronic obstructive pulmonary disease) CVA (cerebral vascular accident) Clotting disorder Depression Diabetes Hypertension Surgical History History of hand surgery Hx of dilation and curettage Hx of section History of tubal ligation History of hip replacement History of foot surgery Social History Smoking Status: Light Smoker (<10/day) Tobacco: How many years used: 30 alcohol intake: current Alcohol type: beer and wine details: Casual substance use type: unknown additional social history: pt denies vaping, denies marijuana use, denies edible uses aspirin daily, denies ibuprofen, hx of blood clotting issues Vital Signs Vital Signs Vital Signs: 08/23/25 14:25 Temperature 97.3 F L Temperature Source Temporal Pulse Rate 72 Respiratory Rate 18 Blood Pressure 138/95 H Blood Pressure Mean 109 Blood Pressure Source Monitor Blood Pressure Position Semi-Fowlers Blood Pressure Location Left Arm Physical Exam Const alert, oriented x3, no apparent distress, no limitations and well nourished Constitutional Narrative: The patient is obese. Her BMI is 44.1. General Appearance: cooperative, comfortable, well kempt and well developed Orientation / Consciousness: awake, oriented to person, oriented to place and oriented to time Exam Limitations: no limitations HEENT normocephalic and head/scalp atraumatic Head and Scalp: normal to inspection, normocephalic and atraumatic Face and Sinus: normal facial exam Nose: external nose normal External Ear: external ears normal Eyes EOMs intact bilaterally General Eye: normal appearance of both eyes Neck full ROM Resp normal respiratory effort, normal air movement, no retractions and no use of accessory muscles Effort and Inspection: able to speak in complete sentences Extremity no calf tenderness General Extremity: Negative for clubbing or cyanosis Skin Wound Narrative: Numerous ulcerations are noted. Each is markedly improved. The amount of necrotic and nonviable tissue at each site is markedly diminished. Each ulceration appears to be full-thickness, penetrating the dermal layers, and into the subcutaneous tissues. A clustered ulceration is located on the left breast and inframammary crease. There is an ulceration overlying the lower sternum. There is a large ulceration on the right hip. There is a clustered ulceration in the sacral area. The ulceration on the patient's left hip appears to be nearly healed, and is small in size. The dimensions of each ulceration are documented elsewhere. The large ulceration of the right hip demonstrates a mass of necrotic, nonviable tissue which is largely mobile and loosely attached. A pictorial representation of each ulceration is embedded within [employer]. The improvement noted within the last several weeks is significant. At each site, there is now evidence of pink, healthy granulation tissue. In general, ulcer margins are well beveled. There is no obvious sign of infection or cellulitis. Neuro oriented x3, CN's II-XII intact bilaterally, moves all extremities, no focal motor deficits and no sensory deficits noted Sensorium / Orientation: awake, alert, oriented to person, oriented to place and oriented to time Speech: speech normal Psych mental status grossly normal, cooperative and affect normal Appearance: grossly normal and appropriate Attitude: calm Activity / Motor Behavior: appropriate eye contact Speech: normal speech Mood & Affect: euthymic mood Thought Process: normal thought process Thought Content: normal thought content Attention / Concentration: attention grossly intact Debridement Note Debridement Note Debridement Free Text: A formal debridement was not performed today, as the working diagnosis is that of pyoderma gangrenosum. It is felt that debridement may be contraindicated, and likely to result in deterioration of the wounds. However, a massive necrotic and nonviable tissue is noted to be loosely attached to the base of the right hip ulceration. Therefore, sharp dissection with a scissors and forceps was used to undermine and detach the necrotic tissue, removing it from the site. Because the dissection was carried through necrotic tissue, no pain or bleeding were encountered. Post-Debridement Measurements and Additional Note: Post-Debridement Measurements/Treatment WC - Nurse 1 - General Ulcer Assessment Start: 08/16/25 14:03 Freq: Status: Active Protocol: TEENA Activity Type Activity Date Activity User E-sign Co-sign Detail Recorded Client Recorded Date Recorded By Document 08/16/25 14:03 RB [id number] 08/16/25 14:09 RB Document 10/21/25 14:25 RB [id number] 08/23/25 14:39 RB 08/16/25 08/23/25 14:03 14:25 WC - Today's Visit Information Type of service Follow-up Visit Follow-up Visit (Physician/CANCER PROGRAM COORDINATOR (Physician/CANCER PROGRAM COORDINATOR ) ) Arrival Mode Ambulatory Ambulatory Transfer Assistance None None Patient Identification Verified (Name & Yes Yes ) Patient Requires Transmission-Based No No Precautions Vital Signs Temperature (97.8 F-99.1 F) 97 F L 97.3 F L Temperature Source Temporal Temporal Pulse Rate (60-100) 66 72 Pulse Location Monitor Monitor Respiratory Rate (12-18) 18 18 Respiratory rate source Observation Observation Blood Pressure (90/60-120/80) 154/87 H 138/95 H Blood Pressure Mean 109 109 Source Monitor Monitor Position Semi-Fowlers Semi-Fowlers Blood Pressure Location Left Arm Left Arm History Since Last Visit- (Skip if this is Patient's initial visit) Have you changed medications since your No No last visit? Any new allergies or adverse reactions No No Had a fall/change in ADL's that may No No increase risk of falls Signs or symptoms of abuse and/or No No neglect since last visit Have you been in the hospital since your No No last visit? Has dressing in place as prescribed Yes Yes Has compression in place as prescribed N/A N/A Has offloadiing in place as prescribed N/A N/A Experienced any changes in pain level or No No management Left Footwear Regular Shoe Regular Shoe Right Footwear Regular Shoe Regular Shoe Pain Scale: 0-10 Numeric Is Patient Pain Free? Yes No R hip -Description Aching Sharp,Burning, Aching -Intensity 10 6 -Duration (hours) Acute Acute -Pain Behavior Guarding Withdrawal from Touch -Pain Aggravating Factors ADL's Exercise/ Activity, Debridement -Alleviating Factors/Interventions Medication Medication -Effectiveness of Alleviating Factor/ Moderately Minimally Intervention effective effective WC - Nurse 1 - General Ulcer Measurement Start: 08/16/25 14:03 Freq: Status: Active Protocol: Activity Type Activity Date Activity User E-sign Co-sign Detail Recorded Client Recorded Date Recorded By Document 08/16/25 14:03 RB [id number] 08/16/25 14:09 RB Edit Result 08/16/25 14:03 RB (1) [id number] 08/16/25 14:11 RB Document 08/23/25 14:25 RB [id number] 08/23/25 14:39 RB (1) 13. R lateral abd /hip - Current Size (cm) - Length 0.1 => 4.5 - Current Size (cm) - Width 0.1 => 5.5 - Current Size (cm) - Depth 0.1 => 0.6 - Total Square Cm 0.01 => 24.75 08/16/25 08/23/25 14:03 14:25 Wound Center Nurse 1 10. L hip -Combined with other wound No No -Current Size (cm) - Length 0.1 0 -Current Size (cm) - Width 0.1 0 -Current Size (cm) - Depth 0.1 0 -Total Square Cm 0.01 0 -Photo Taken Yes Yes -Epithelialization Large 67-100% Large 67-100% -Tunneling No -Undermining/Tunneling No -Circular Undermining No -Exudate Amt Small -Exudate Type Serosanguineous -Wound Margin Distinct, Outline Attached -Granulation Amt Large (67-100%) -Granulation Quality [place] -Slough/Fibrin Yes -Necrosis Amt Small (1-33%) -Necrotic Tissue Type Adherent Slough -Structure Exposed N/A -Texture ([place]-wound Skin Appearance) Assessed, Scarring -Moisture ([place]-wound Skin Appearance) Assessed -Color ([place]-wound Skin Appearance) Assessed -Temperature ([place]-wound Skin No Abnormality Appearance) (Pt Warm) -Tenderness on Palpation ([place]-wound No Skin Appearance) -Ulcer Cleansing Wound Cleanser -Foul Odor after Cleansing No -Anesthetic Used 5% Lidocaine Gel 13. R lateral abd /hip -Combined with other wound No No -Current Size (cm) - Length 4.5 4.2 -Current Size (cm) - Width 5.5 5.5 -Current Size (cm) - Depth 0.6 0.5 -Total Square Cm 24.75 23.10 -Photo Taken Yes Yes -Epithelialization Medium 34-66% -Tunneling No No -Undermining/Tunneling No No -Circular Undermining No No -Exudate Amt Large Large -Exudate Type Purulent Serosanguineous -Wound Margin Thickened & Thickened & Rolled Under Rolled Under -Granulation Amt Small (1-33%) Medium (34-66%) -Granulation Quality [place] -Slough/Fibrin Yes Yes -Necrosis Amt Large (67-100%) Medium (34-66%) -Necrotic Tissue Type Eschar Adherent Slough -Structure Exposed N/A N/A -Texture ([place]-wound Skin Appearance) Assessed Assessed, Scarring -Moisture ([place]-wound Skin Appearance) Assessed Assessed -Color ([place]-wound Skin Appearance) Assessed Assessed -Temperature ([place]-wound Skin No Abnormality No Abnormality Appearance) (Pt Warm) (Pt Warm) -Tenderness on Palpation ([place]-wound No No Skin Appearance) -Ulcer Cleansing Wound Cleanser Wound Cleanser -Foul Odor after Cleansing No No -Anesthetic Used 5% Lidocaine Gel 12. Mid sternum -Combined with other wound No No -Current Size (cm) - Length 2 1.4 -Current Size (cm) - Width 2.5 2.5 -Current Size (cm) - Depth 0.2 0.2 -Total Square Cm 5.0 3.50 -Photo Taken Yes Yes -Tunneling No No -Undermining/Tunneling No No -Circular Undermining No No -Exudate Amt Medium Large -Exudate Type Serosanguineous Serosanguineous -Wound Margin Distinct, Thickened & Outline Rolled Under Attached -Granulation Amt Medium (34-66%) Medium (34-66%) -Granulation Quality [place] -Slough/Fibrin Yes Yes -Necrosis Amt Small (1-33%) Medium (34-66%) -Necrotic Tissue Type Adherent Slough Adherent Slough -Structure Exposed N/A N/A -Texture ([place]-wound Skin Appearance) Assessed, Assessed, Scarring Scarring -Moisture ([place]-wound Skin Appearance) Assessed Assessed -Color ([place]-wound Skin Appearance) Assessed Assessed -Temperature ([place]-wound Skin No Abnormality No Abnormality Appearance) (Pt Warm) (Pt Warm) -Tenderness on Palpation ([place]-wound No Skin Appearance) -Ulcer Cleansing Wound Cleanser Wound Cleanser -Foul Odor after Cleansing No No -Anesthetic Used 5% Lidocaine 5% Lidocaine Gel Gel 11.L breast cluster -Combined with other wound No No -Current Size (cm) - Length 9.5 10.5 -Current Size (cm) - Width 7 5.5 -Current Size (cm) - Depth 0.3 0.5 -Total Square Cm 66.5 57.75 -Photo Taken Yes -Tunneling No -Undermining/Tunneling No -Circular Undermining No -Exudate Amt Medium -Exudate Type Serosanguineous -Wound Margin Thickened & Rolled Under -Granulation Amt Small (1-33%) -Granulation Quality [place] -Slough/Fibrin Yes -Necrosis Amt Large (67-100%) -Necrotic Tissue Type Adherent Slough -Structure Exposed N/A -Texture ([place]-wound Skin Appearance) Assessed, Scarring -Moisture ([place]-wound Skin Appearance) Assessed -Color ([place]-wound Skin Appearance) Assessed -Temperature ([place]-wound Skin No Abnormality Appearance) (Pt Warm) -Tenderness on Palpation ([place]-wound No Skin Appearance) -Ulcer Cleansing Wound Cleanser -Foul Odor after Cleansing No -Anesthetic Used 5% Lidocaine Gel 9. LOWER BACK cluster -Combined with other wound No No -Current Size (cm) - Length 9.5 8.5 -Current Size (cm) - Width 7 6.3 -Current Size (cm) - Depth 0.3 0.3 -Total Square Cm 66.5 53.55 -Photo Taken Yes Yes -Tunneling No No -Undermining/Tunneling No No -Circular Undermining No No -Exudate Amt Large Large -Exudate Type Serosanguineous Serosanguineous -Wound Margin Thickened & Thickened & Rolled Under Rolled Under -Granulation Amt Small (1-33%) Medium (34-66%) -Granulation Quality [place] -Slough/Fibrin Yes Yes -Necrosis Amt Large (67-100%) Medium (34-66%) -Necrotic Tissue Type Adherent Slough Adherent Slough -Structure Exposed N/A N/A -Texture ([place]-wound Skin Appearance) Assessed, Assessed, Scarring Scarring -Moisture ([place]-wound Skin Appearance) Assessed Assessed -Color ([place]-wound Skin Appearance) Assessed Assessed -Temperature ([place]-wound Skin No Abnormality No Abnormality Appearance) (Pt Warm) (Pt Warm) -Tenderness on Palpation ([place]-wound No No Skin Appearance) -Ulcer Cleansing Wound Cleanser Wound Cleanser -Foul Odor after Cleansing No No -Anesthetic Used 5% Lidocaine 5% Lidocaine Gel Gel WC - Nurse 2 - General Ulcer CM Notes Start: 08/16/25 14:03 Freq: Status: Active Protocol: Activity Type Activity Date Activity User E-sign Co-sign Detail Recorded Client Recorded Date Recorded By Document 08/16/25 14:20 DS [id number] 08/16/25 14:36 DS Document 08/23/25 14:50 DS [id number] 08/23/25 14:53 DS 08/16/25 08/23/25 14:20 14:50 Wound Center Nurse 2 10. L hip -Time 14:20 14:51 -Correct Patient Yes Yes -Correct Side, Site, Position Yes Yes -Procedure Performed No -Wound/Ulcer Outcome Healed- Epithelialized 13. R lateral abd /hip -Time 14:20 14:50 -Correct Patient Yes Yes -Correct Side, Site, Position Yes Yes -Procedure Performed No No -Post Debridement (cm) - Length 4.8 -Post Debridement (cm) - Width 6.0 -Post Debridement (cm) - Depth 1.2 -Total Square (Post) (cm) 28.80 -Area of Debridement (cm) - Length 4.8 -Area of Debridement (cm) - Width 6.0 -Total Square (Area) (cm) 28.80 -Tunneling No -Undermining/Tunneling No -Circular Undermining No -Wound/Ulcer Outcome Not Healed Not Healed 12. Mid sternum -Time 14:20 14:50 -Correct Patient Yes Yes -Correct Side, Site, Position Yes Yes -Procedure Performed No -Wound/Ulcer Outcome Not Healed 11.L breast cluster -Time 14:20 14:50 -Correct Patient Yes Yes -Correct Side, Site, Position Yes Yes -Procedure Performed No -Wound/Ulcer Outcome Not Healed 9. LOWER BACK cluster -Time 14:20 14:51 -Correct Patient Yes Yes -Correct Side, Site, Position Yes Yes -Procedure Performed No -Wound/Ulcer Outcome Not Healed Pain Scale: 0-10 Numeric Is Patient Pain Free? Yes Yes WC - Nurse 3 - General Ulcer D/C NN Start: 08/16/25 14:03 Freq: Status: Active Protocol: Activity Type Activity Date Activity User E-sign Co-sign Detail Recorded Client Recorded Date Recorded By Document 08/16/25 15:00 RB [id number] 08/16/25 15:01 RB Document 08/23/25 15:12 TS [id number] 08/23/25 15:15 TS 08/16/25 08/23/25 15:00 15:12 Wound Care Center Nurse 3 10. L hip -Ulcer Cleansing Wound Cleanser -Other Dressing silvadene -Primary Dressing Covered/Secured with Dry Gauze, Secured with Tape 13. R lateral abd /hip -Ulcer Cleansing Wound Cleanser Rinsed/ Irrigated with Saline -Other Dressing silvadene silvadene -Primary Dressing Covered/Secured with Dry Gauze, Dry Gauze, Secured with Secured with Tape Tape 12. Mid sternum -Ulcer Cleansing Wound Cleanser Rinsed/ Irrigated with Saline -Other Dressing silvadene silvadene -Primary Dressing Covered/Secured with Dry Gauze, Dry Gauze, Secured with Secured with Tape Tape 11.L breast cluster -Ulcer Cleansing Wound Cleanser Rinsed/ Irrigated with Saline -Other Dressing silvadede silvadene -Primary Dressing Covered/Secured with Dry Gauze, Dry Gauze, Secured with Secured with Tape Tape 9. LOWER BACK cluster -Ulcer Cleansing Wound Cleanser Rinsed/ Irrigated with Saline -Other Dressing silvadene silavadene -Primary Dressing Covered/Secured with Dry Gauze, Dry Gauze, Secured with Secured with Tape Tape Treatment Response Procedure Procedure Tolerated Well Tolerated Well Pain Scale: 0-10 Numeric Is Patient Pain Free? Yes No WC - Visit Discharge Discharge Condition Stable Stable Ambulatory Status Ambulatory Ambulatory Transportation Private Auto Private Auto Medication Reconcilliation completed & No No provided to patient/care provider Clinical Summary of Care Provided Yes Yes Charges/Coding Visit Charges Office Visits / Consults: 33988 OV L4 Est 30min Assessment/Plan Assessment/Plan (1) Pyoderma gangrenosum: CODE(S): L88 - Pyoderma gangrenosum (2) Ulcer of skin of breast: CODE(S): L98.499 - Non-pressure chronic ulcer of skin of other sites with unspecified severity (3) Skin ulcer of sternum with fat layer exposed: CODE(S): L98.492 - Non-pressure chronic ulcer of skin of other sites with fat layer exposed (4) Ulcer of trochanteric region of hip with fat layer exposed: CODE(S): L97.102 - Non-pressure chronic ulcer of unspecified thigh with fat layer exposed (5) Ulcer of trochanteric region of hip with fat layer exposed: CODE(S): L97.102 - Non-pressure chronic ulcer of unspecified thigh with fat layer exposed (6) Chronic ulcer of back: CODE(S): L98.429 - Non-pressure chronic ulcer of back with unspecified severity (7) Skin necrosis: CODE(S): I96 - Gangrene, not elsewhere classified (8) Hx of migraines: CODE(S): Z86.69 - Personal history of other diseases of the nervous system and sense organs (9) Smoker: CODE(S): F17.200 - Nicotine dependence, unspecified, uncomplicated (10) Encounter for smoking cessation counseling: CODE(S): Z71.6 - Tobacco abuse counseling (11) COPD (chronic obstructive pulmonary disease): CODE(S): J44.9 - Chronic obstructive pulmonary disease, unspecified (12) History of hand surgery: CODE(S): Z98.890 - Other specified postprocedural states (13) CRPS (complex regional pain syndrome), type I, upper: CODE(S): G90.519 - Complex regional pain syndrome I of unspecified upper l imb (14) Prediabetes: CODE(S): R73.03 - Prediabetes (15) Morbid obesity with BMI of 40.0-44.9, adult: CODE(S): E66.01 - Morbid (severe) obesity due to excess calories; Z68.41 - Body mass index [BMI] 40.0-44.9, adult (16) History of irregular heartbeat: CODE(S): Z86.79 - Personal history of other diseases of the circulatory system (17) IBS (irritable bowel syndrome): CODE(S): K58.9 - Irritable bowel syndrome, unspecified (18) GERD (gastroesophageal reflux disease): CODE(S): K21.9 - Gastro-esophageal reflux disease without esophagitis (19) Arthritis: CODE(S): M19.90 - Unspecified osteoarthritis, unspecified site (20) Hypertension: CODE(S): I10 - Essential (primary) hypertension (21) Hx of dilation and curettage: CODE(S): Z98.890 - Other specified postprocedural states (22) Hx of section: CODE(S): Z98.891 - History of uterine scar from previous surgery (23) History of tubal ligation: CODE(S): Z98.51 - Tubal ligation status (24) History of hip replacement: CODE(S): Z96.649 - Presence of unspecified artificial hip joint (25) History of foot surgery: CODE(S): Z98.890 - Other specified postprocedural states PLAN: Plan This is a 50-year-old female who presented with multiple ulcerations on her body. The ulcerations involved the left breast, the left inframammary crease, the sternal area, both hips, and the low back. The patient's ulcerations initially demonstrated a large amount of necrotic and nonviable tissue. However, with the implementation of conservative treatment measures, there has been significant improvement in the appearance of the patient's ulcerations within the last several weeks. A diagnosis of pyoderma gangrenosum has been previously made by a supervisor concrete stone fabricating at [facility]. However, the patient was instructed by that former dermatology practice that they were unable to provide care due to the severity of her disease. Standard debridements have been deferred, as debridements are typically contraindicated with evidence that debridements may exacerbate the ulcerations of pyoderma gangrenosum. However, masses of frankly necrotic tissue, loosely attached, have been sharply excised from the right hip ulceration during recent visits, with efforts to avoid traumatization of underlying viable tissues. The patient has been advised to optimize her nutritional intake. She has been strongly advised to discontinue her smoking habit. We discussed continuing the use of Dakin's-moistened gauze to the sites of ulceration. However, the patient has indicated that hi storically she has had favorable results using Silvadene topically to her wounds in the past. She is insistent that she prefers the use of Silvadene topically. Therefore, we are to acquiesce to the patient's wishes. 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 Dr. Chris Lane, a local [employer], has agreed to provide consultation for evaluation and recommendations regarding the patient's treatment. Arrangements are to be made to schedule an appointment with Dr. Lane. Records and photos have been sent, and updated records will also be forwarded to Dr. Lane's office. We have recently initiated a systemic steroid, prednisone 500 mg p.o. daily. This appears to have resulted in improvement in the appearance of the patient's ulcerations. We will await Dr. Lane's recommendations, to determine whether there may be a role for other measures, such as the use of systemic immunosuppressants. Total time: 35 minutes
[2025-08-30 13:40] VITALS: BP 150/98; PULSE 81; RESP 15; TEMP 35.6
--- NOTE | 2025-08-30 23:02 | PCM.WC.HP ---
History of Present Illness Date of Service: 08/30/25 Chief Complaint: Pyoderma gangrenosum with multiple ulcerations History of Wound: This is a 50-year-old obese female who presented with multiple clustered ulcerations on various portions of her body. The ulcerations were noted on the left breast and inframammary crease, the sternal area, the right and left hip, and the low back. The patient had been treated previously for ulcerations on the left breast and elsewhere on her body. In 2023, treatment by Dr. Bentley Abreu, Plastic Surgeon, involved the use of Dakin's wet-to-dry dressing changes. Wound biopsies performed on 2 different occasions in 2023 were negative for malignancy and demonstrated nonspecific findings. The patient has been evaluated at [facility] in the past relative to her wounds, which she has developed on a recurrent basis. The diagnosis of pyoderma gangrenosum was determined, though the patient was informed that management at [facility] could not be offered because her condition was too difficult. The patient was subsequently referred to a emergency medicine specialist at the [facility], Dr. Isaias Mcneal ([phone]). However, the patient did not follow-up, claiming to have difficulties with transportation. She has recently completed a course of oral Bactrim, prescribed by her PCP relative to her multiple wounds. The patient is pre-diabetic. She does admit to being a long-term smoker, currently smoking about a half a pack of cigarettes per day. 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 Muscle spasm Pressure ulcer of unspecified site, unspecified stage Finger osteomyelitis, left Wears glasses Depression Hx of blood diseases Gastric reflux Shortness of breath on exertion Smoker Chronic cough History of irregular heartbeat Laceration without foreign body of left index finger without damage to nail, sequela Skin necrosis Skin ulcer of finger Seasonal allergies Carpal tunnel syndrome History of back problems UTI (urinary tract infection) Hx of migraines Anxiety IBS (irritable bowel syndrome) GERD (gastroesophageal reflux disease) Work related injury Smoker Crushing injury of finger, left Laceration of extensor structure of left index finger at hand level Laceration of left index finger w/o foreign body w/o damage to nail Asthma Arthritis Hypertension Home Medications ?Medication ?Instructions ?Recorded ?Last Taken ?Type duloxetine 60 mg capsule,delayed 60 mg PO DAILY ANXIETY 04/14/18 05/03/23 History release oxybutynin chloride 15 mg 15 mg PO DAILY urine 04/14/18 05/06/23 History tablet,extended release 24 hr (Ditropan XL) valacyclovir 500 mg tablet 500 mg PO DAILY herpes 04/14/18 05/06/23 History (Valtrex) albuterol sulfate 90 mcg/actuation 2 puff inhalation Q6H PRN ASTHMA 06/08/21 Unknown History aerosol inhaler (ProAir HFA) topiramate 25 mg tablet (Topamax) 25 mg PO BID 06/08/21 05/06/23 History sulfamethoxazole 400 1 tab PO BID 01/22/24 Unknown History mg-trimethoprim 80 mg tablet (Bactrim) fexofenadine 180 mg tablet 180 mg PO DAILY 04/18/25 Unknown History folic acid 1 mg tablet 1 mg PO DAILY 04/18/25 Unknown History hydroxyzine HCl 25 mg tablet 25 mg PO TID PRN PRN itch 04/18/25 Unknown History meloxicam 15 mg tablet 15 mg PO DAILY 04/18/25 Unknown History metoprolol succinate 50 mg 50 mg PO DAILY 04/18/25 Unknown History tablet,extended release 24 hr silver sulfadiazine 1 % topical applic topical BID 04/18/25 Unknown History cream (SSD) lisdexamfetamine 50 mg capsule 50 mg PO DAILY 08/02/25 Unknown History (Vyvanse) prednisone 50 mg tablet 50 mg PO DAILY Pyoderma 08/17/25 Unknown Rx gangrenosum #30 tabs silver sulfadiazine 1 % topical 1 applic topical BID Ulcerations 08/17/25 Unknown Rx cream (Silvadene) #400 grams Allergy/AdvReac Type Severity Reaction Status Date / Time fluticasone (From Advair Allergy Intermediate Chest Verified 12/30/24 14:20 Diskus) tightness salmeterol (From Advair Allergy Intermediate Chest Verified 12/30/24 14:20 Diskus) tightness Family History Other Alcoholism Anxiety Arthritis COPD (chronic obstructive pulmonary disease) CVA (cerebral vascular accident) Clotting disorder Depression Diabetes Hypertension Surgical History History of hand surgery Hx of dilation and curettage Hx of section History of tubal ligation History of hip replacement History of foot surgery Social History Smoking Status: Light Smoker (<10/day) Tobacco: How many years used: 30 alcohol intake: current Alcohol type: beer and wine details: Casual substance use type: unknown additional social history: pt denies vaping, denies marijuana use, denies edible uses aspirin daily, denies ibuprofen, hx of blood clotting issues Vital Signs Vital Signs Vital Signs: 08/30/25 13:40 Temperature 96.1 F L Temperature Source Temporal Pulse Rate 81 Respiratory Rate 15 Blood Pressure 150/98 H Blood Pressure Mean 115 Blood Pressure Source Monitor Blood Pressure Position Sitting Blood Pressure Location Left Forearm Physical Exam Const alert, oriented x3, no apparent distress, no limitations and well nourished Constitutional Narrative: The patient is obese. Her BMI is 44.1. General Appearance: cooperative, comfortable, well kempt and well developed Orientation / Consciousness: awake, oriented to person, oriented to place and oriented to time Exam Limitations: no limitations HEENT normocephalic and head/scalp atraumatic Head and Scalp: normal to inspection, normocephalic and atraumatic Face and Sinus: normal facial exam Nose: external nose normal External Ear: external ears normal Eyes EOMs intact bilaterally General Eye: normal appearance of both eyes Neck full ROM Resp normal respiratory effort, normal air movement, no retractions and no use of accessory muscles Effort and Inspection: able to speak in complete sentences Extremity no calf tenderness General Extremity: Negative for clubbing or cyanosis Skin Wound Narrative: Numerous ulcerations are noted. Each is markedly improved. The amount of necrotic and nonviable tissue at each site is markedly diminished. Each ulceration appears to be full-thickness, penetrating the dermal layers, and into the subcutaneous tissues. A clustered ulceration is located on the left breast and inframammary crease. There is an ulceration overlying the lower sternum. There is a large ulceration on the right hip. There is a clustered ulceration in the sacral area. The ulceration on the patient's left hip is healed. The dimensions of each ulceration are documented elsewhere. The necrotic and gangrenous material at the site of each ulceration, noted at the patient's initial presentation, has been largely eliminated. In general, the ulcerations are pink and healthy in appearance, with evidence of active granulation tissue. There has been significant improvement. A pictorial representation of each ulceration is embedded within GoGoPin. The improvement noted within the last several weeks is significant. At each site, there is now evidence of pink, healthy granulation tissue. In general, ulcer margins are well beveled. There is no obvious sign of infection or cellulitis. Neuro oriented x3, CN's II-XII intact bilaterally, moves all extremities, no focal motor deficits and no sensory deficits noted Sensorium / Orientation: awake, alert, oriented to person, oriented to place and oriented to time Speech: speech normal Psych mental status grossly normal, cooperative and affect normal Appearance: grossly normal and appropriate Attitude: calm Activity / Motor Behavior: appropriate eye contact Speech: normal speech Mood & Affect: euthymic mood Thought Process: normal thought process Thought Content: normal thought content Attention / Concentration: attention grossly intact Debridement Note Debridement Note Debridement Free Text: A formal debridement was not performed today, as the working diagnosis is that of pyoderma gangrenosum. It is felt that debridement may be contraindicated, and likely to result in deterioration of the wounds. Post-Debridement Measurements and Additional Note: Post-Debridement Measurements/Treatment - Nurse 1 - General Ulcer Assessment Start: 08/16/25 14:03 Freq: Status: Active Protocol: WC.LOWEXT Activity Type Activity Date Activity User E-sign Co-sign Detail Recorded Client Recorded Date Recorded By Document 08/16/25 14:03 RB [id number] 08/16/25 14:09 RB Document 08/23/25 14:25 RB [id number] 08/23/25 14:39 RB Document 08/30/25 13:40 ML [id number] 08/30/25 13:58 ML 08/16/25 08/23/25 08/30/25 14:03 14: 13:40 - Today's Visit Information Type of service Follow-up Visit Follow-up Visit Follow-up Visit (Physician/PHYSICAL THERAPIST (Physician/PHYSICAL THERAPIST (Physician/PHYSICAL THERAPIST ) ) ) Arrival Mode Ambulatory Ambulatory Ambulatory Transfer Assistance None None None Patient Identification Verified (Name & Yes Yes Yes ) Patient Requires Transmission-Based No No No Precautions Vital Signs Temperature (97.8 F-99.1 F) 97 F L 97.3 F L 96.1 F L Temperature Source Temporal Temporal Temporal Pulse Rate (60-100) 66 72 81 Pulse Location Monitor Monitor Monitor Respiratory Rate (12-18) 18 18 15 Respiratory rate source Observation Observation Monitor Blood Pressure (90/60-120/80) 154/87 H 138/95 H 150/98 H Blood Pressure Mean 109 109 115 Source Monitor Monitor Monitor Position Semi-Fowlers Semi-Fowlers Sitting Blood Pressure Location Left Arm Left Arm Left Forearm History Since Last Visit- (Skip if this is Patient's initial visit) Have you changed medications since your No No No last visit? Any new allergies or adverse reactions No No No Had a fall/change in ADL's that may No No No increase risk of falls Signs or symptoms of abuse and/or No No No neglect since last visit Have you been in the hospital since your No No No last visit? Has dressing in place as prescribed Yes Yes No Has compression in place as prescribed N/A N/A N/A Has offloadiing in place as prescribed N/A N/A N/A Experienced any changes in pain level or No No No management Left Footwear Regular Shoe Regular Shoe Right Footwear Regular Shoe Regular Shoe Pain Scale: 0-10 Numeric Is Patient Pain Free? Yes No Yes R hip -Description Aching Sharp,Burning, Aching -Intensity 10 6 -Duration (hours) Acute Acute -Pain Behavior Guarding Withdrawal from Touch -Pain Aggravating Factors ADL's Exercise/ Activity, Debridement -Alleviating Factors/Interventions Medication Medication -Effectiveness of Alleviating Factor/ Moderately Minimally Intervention effective effective WC - Nurse 1 - General Ulcer Measurement Start: 08/16/25 14:03 Freq: Status: Active Protocol: Activity Type Activity Date Activity User E-sign Co-sign Detail Recorded Client Recorded Date Recorded By Document 08/16/25 14:03 RB [id number] 08/16/25 14:09 RB Edit Result 08/16/25 14:03 RB (1) [id number] 08/16/25 14:11 RB Document 08/23/25 14:25 RB [id number] 08/23/25 14:39 RB Document 08/30/25 13:40 ML [id number] 08/30/25 13:58 ML (1) 13. R lateral abd /hip - Current Size (cm) - Length 0.1 => 4.5 - Current Size (cm) - Width 0.1 => 5.5 - Current Size (cm) - Depth 0.1 => 0.6 - Total Square Cm 0.01 => 24.75 08/16/25 08/23/25 08/30/25 14:03 14:25 13:40 Wound Center Nurse 1 10. L hip -Combined with other wound No No -Current Size (cm) - Length 0.1 0 -Current Size (cm) - Width 0.1 0 -Current Size (cm) - Depth 0.1 0 -Total Square Cm 0.01 0 -Photo Taken Yes Yes -Epithelialization Large 67-100% Large 67-100% -Tunneling No -Undermining/Tunneling No -Circular Undermining No -Exudate Amt Small -Exudate Type Serosanguineous -Wound Margin Distinct, Outline Attached -Granulation Amt Large (67-100%) -Granulation Quality [place] -Slough/Fibrin Yes -Necrosis Amt Small (1-33%) -Necrotic Tissue Type Adherent Slough -Structure Exposed N/A -Texture (Abimbola-wound Skin Appearance) Assessed, Scarring -Moisture (Abimbola-wound Skin Appearance) Assessed -Color ([place]imbola-wound Skin Appearance) Assessed -Temperature (Abimbola-wound Skin No Abnormality Appearance) (Pt Warm) -Tenderness on Palpation (Abimbola-wound No Skin Appearance) -Ulcer Cleansing Wound Cleanser -Foul Odor after Cleansing No -Anesthetic Used 5% Lidocaine Gel 13. R lateral abd /hip -Combined with other wound No No -Current Size (cm) - Length 4.5 4.2 5.5 -Current Size (cm) - Width 5.5 5.5 4 -Current Size (cm) - Depth 0.6 0.5 0.3 -Total Square Cm 24.75 23.10 22.0 -Photo Taken Yes Yes -Epithelialization Medium 34-66% -Tunneling No No -Undermining/Tunneling No No -Circular Undermining No No -Exudate Amt Large Large Large -Exudate Type Purulent Serosanguineous Yellow/Green -Wound Margin Thickened & Thickened & Rolled Under Rolled Under -Granulation Amt Small (1-33%) Medium (34-66%) Large (67-100%) -Granulation Quality [place] -Slough/Fibrin Yes Yes Yes -Necrosis Amt Large (67-100%) Medium (34-66%) Medium (34-66%) -Necrotic Tissue Type Eschar Adherent Slough Adherent Slough -Structure Exposed N/A N/A -Texture (Abimbola-wound Skin Appearance) Assessed Assessed, Assessed Scarring -Moisture (Abimbola-wound Skin Appearance) Assessed Assessed Assessed -Color (Abimbola-wound Skin Appearance) Assessed Assessed Assessed -Temperature (Abimbola-wound Skin No Abnormality No Abnormality No Abnormality Appearance) (Pt Warm) (Pt Warm) (Pt Warm) -Tenderness on Palpation (Abimbola-wound No No Yes Skin Appearance) -Ulcer Cleansing Wound Cleanser Wound Cleanser Soap and Water -Foul Odor after Cleansing No No No -Anesthetic Used 5% Lidocaine 5% Lidocaine Gel Gel 12. Mid sternum -Combined with other wound No No -Current Size (cm) - Length 2 1.4 2 -Current Size (cm) - Width 2.5 2.5 2.5 -Current Size (cm) - Depth 0.2 0.2 0.2 -Total Square Cm 5.0 3.50 5.0 -Photo Taken Yes Yes -Tunneling No No -Undermining/Tunneling No No -Circular Undermining No No -Exudate Amt Medium Large Medium -Exudate Type Serosanguineous Serosanguineous Yellow/Green -Wound Margin Distinct, Thickened & Outline Rolled Under Attached -Granulation Amt Medium (34-66%) Medium (34-66%) Medium (34-66%) -Granulation Quality [place] -Slough/Fibrin Yes Yes Yes -Necrosis Amt Small (1-33%) Medium (34-66%) Medium (34-66%) -Necrotic Tissue Type Adherent Slough Adherent Slough Adherent Slough -Structure Exposed N/A N/A -Texture (Abimbola-wound Skin Appearance) Assessed, Assessed, Assessed Scarring Scarring -Moisture (Abimbola-wound Skin Appearance) Assessed Assessed Assessed -Color (Abimbola-wound Skin Appearance) Assessed Assessed Assessed -Temperature (Abimbola-wound Skin No Abnormality No Abnormality No Abnormality Appearance) (Pt Warm) (Pt Warm) (Pt Warm) -Tenderness on Palpation (Abimbola-wound No Yes Skin Appearance) -Ulcer Cleansing Wound Cleanser Wound Cleanser Soap and Water -Foul Odor after Cleansing No No No -Anesthetic Used 5% Lidocaine 5% Lidocaine 5% Lidocaine Gel Gel Gel 11.L breast cluster -Combined with other wound No No -Current Size (cm) - Length 9.5 10.5 3.5 -Current Size (cm) - Width 7 5.5 2 -Current Size (cm) - Depth 0.3 0.5 0.1 -Total Square Cm 66.5 57.75 7.0 -Photo Taken Yes -Tunneling No -Undermining/Tunneling No -Circular Undermining No -Exudate Amt Medium Medium -Exudate Type Serosanguineous Yellow/Green -Wound Margin Thickened & Rolled Under -Granulation Amt Small (1-33%) -Granulation Quality [place] -Slough/Fibrin Yes -Necrosis Amt Large (67-100%) Medium (34-66%) -Necrotic Tissue Type Adherent Slough Adherent Slough -Structure Exposed N/A -Texture (Abimbola-wound Skin Appearance) Assessed, Assessed Scarring -Moisture (Abimbola-wound Skin Appearance) Assessed Assessed -Color (Abimbola-wound Skin Appearance) Assessed Assessed -Temperature (Abimbola-wound Skin No Abnormality No Abnormality Appearance) (Pt Warm) (Pt Warm) -Tenderness on Palpation (Abimbola-wound No Yes Skin Appearance) -Ulcer Cleansing Wound Cleanser Soap and Water -Foul Odor after Cleansing No No -Anesthetic Used 5% Lidocaine 5% Lidocaine Gel Gel 9. LOWER BACK cluster -Combined with other wound No No -Current Size (cm) - Length 9.5 8.5 3.2 -Current Size (cm) - Width 7 6.3 0.3 -Current Size (cm) - Depth 0.3 0.3 -Total Square Cm 66.5 53.55 0.96 -Photo Taken Yes Yes -Tunneling No No -Undermining/Tunneling No No -Circular Undermining No No -Exudate Amt Large Large Medium -Exudate Type Serosanguineous Serosanguineous Yellow/Green -Wound Margin Thickened & Thickened & Distinct, Rolled Under Rolled Under Outline Attached -Granulation Amt Small (1-33%) Medium (34-66%) Medium (34-66%) -Granulation Quality [place] -Slough/Fibrin Yes Yes Yes -Necrosis Amt Large (67-100%) Medium (34-66%) Medium (34-66%) -Necrotic Tissue Type Adherent Slough Adherent Slough Adherent Slough -Structure Exposed N/A N/A -Texture (Abimbola-wound Skin Appearance) Assessed, Assessed, Assessed Scarring Scarring -Moisture (Abimbola-wound Skin Appearance) Assessed Assessed Assessed -Color ([place]imbola-wound Skin Appearance) Assessed Assessed Assessed -Temperature ([place]imbola-wound Skin No Abnormality No Abnormality No Abnormality Appearance) (Pt Warm) (Pt Warm) (Pt Warm) -Tenderness on Palpation (Abimbola-wound No No No Skin Appearance) -Ulcer Cleansing Wound Cleanser Wound Cleanser Soap and Water -Foul Odor after Cleansing No No No -Anesthetic Used 5% Lidocaine 5% Lidocaine 5% Lidocaine Gel Gel Gel WC - Nurse 2 - General Ulcer CM Notes Start: 08/16/25 14:03 Freq: Status: Active Protocol: Activity Type Activity Date Activity User E-sign Co-sign Detail Recorded Client Recorded Date Recorded By Document 08/16/25 14:20 DS [id number] 08/16/25 14:36 DS Document 08/23/25 14:50 DS [id number] 08/23/25 14:53 DS Document 08/30/25 14:27 DS [id number] 08/30/25 14:40 DS 08/16/25 08/23/25 08/30/25 14:20 14:50 14:27 Wound Center Nurse 2 10. L hip -Time 14:20 14:51 -Correct Patient Yes Yes -Correct Side, Site, Position Yes Yes -Procedure Performed No -Wound/Ulcer Outcome Healed- Epithelialized 13. R lateral abd /hip -Time 14:20 14:50 14:27 -Correct Patient Yes Yes Yes -Correct Side, Site, Position Yes Yes Yes -Procedure Performed No No No -Post Debridement (cm) - Length 4.8 4.0 -Post Debridement (cm) - Width 6.0 5.6 -Post Debridement (cm) - Depth 1.2 0.8 -Total Square (Post) (cm) 28.80 22.40 -Area of Debridement (cm) - Length 4.8 4.0 -Area of Debridement (cm) - Width 6.0 5.6 -Total Square (Area) (cm) 28.80 22.40 -Tunneling No No -Undermining/Tunneling No No -Circular Undermining No No -Wound/Ulcer Outcome Not Healed Not Healed Not Healed 12. Mid sternum -Time 14:20 14:50 14:27 -Correct Patient Yes Yes Yes -Correct Side, Site, Position Yes Yes Yes -Procedure Performed No No -Post Debridement (cm) - Length 1.5 -Post Debridement (cm) - Width 2.5 -Post Debridement (cm) - Depth 0.1 -Total Square (Post) (cm) 3.75 -Area of Debridement (cm) - Length 1.5 -Area of Debridement (cm) - Width 2.5 -Total Square (Area) (cm) 3.75 -Tunneling No -Undermining/Tunneling No -Circular Undermining No -Wound/Ulcer Outcome Not Healed Not Healed 11.L breast cluster -Time 14:20 14:50 14:27 -Correct Patient Yes Yes Yes -Correct Side, Site, Position Yes Yes Yes -Procedure Performed No No -Post Debridement (cm) - Length 6.5 -Post Debridement (cm) - Width 4.0 -Post Debridement (cm) - Depth 0.6 -Total Square (Post) (cm) 26.00 -Area of Debridement (cm) - Length 6.5 -Area of Debridement (cm) - Width 4.0 -Total Square (Area) (cm) 26.00 -Tunneling No -Undermining/Tunneling No -Circular Undermining No -Wound/Ulcer Outcome Not Healed Not Healed 9. LOWER BACK cluster -Time 14:20 14:51 14:27 -Correct Patient Yes Yes Yes -Correct Side, Site, Position Yes Yes Yes -Procedure Performed No No -Post Debridement (cm) - Length 6.0 -Post Debridement (cm) - Width 6.5 -Post Debridement (cm) - Depth 0.2 -Total Square (Post) (cm) 39.00 -Area of Debridement (cm) - Length 6.0 -Area of Debridement (cm) - Width 6.5 -Total Square (Area) (cm) 39.00 -Wound/Ulcer Outcome Not Healed Not Healed Pain Scale: 0-10 Numeric Is Patient Pain Free? Yes Yes Yes WC - Nurse 3 - General Ulcer D/C NN Start: 08/16/25 14:03 Freq: Status: Active Protocol: Activity Type Activity Date Activity User E-sign Co-sign Detail Recorded Client Recorded Date Recorded By Document 08/16/25 15:00 RB [id number] 08/16/25 15:01 RB Document 08/23/25 15:12 TS [id number] 08/23/25 15:15 TS Document 08/30/25 14:53 JF [id number] 08/30/25 14:54 JF 08/16/25 08/23/25 08/30/25 15:00 15:12 14:53 Wound Care Center Nurse 3 10. L hip -Ulcer Cleansing Wound Cleanser -Other Dressing silvadene -Primary Dressing Covered/Secured with Dry Gauze, Secured with Tape 13. R lateral abd /hip -Ulcer Cleansing Wound Cleanser Rinsed/ Rinsed/ Irrigated with Irrigated with Saline Saline -Foul Odor after Cleansing No -Other Dressing silvadene silvadene SSD cream -Primary Dressing Covered/Secured with Dry Gauze, Dry Gauze, Dry Gauze, Secured with Secured with Secured with Tape Tape Tape 12. Mid sternum -Ulcer Cleansing Wound Cleanser Rinsed/ Rinsed/ Irrigated with Irrigated with Saline Saline -Foul Odor after Cleansing No -Other Dressing silvadene silvadene SSD cream -Primary Dressing Covered/Secured with Dry Gauze, Dry Gauze, Dry Gauze, Secured with Secured with Secured with Tape Tape Tape 11.L breast cluster -Ulcer Cleansing Wound Cleanser Rinsed/ Rinsed/ Irrigated with Irrigated with Saline Saline -Foul Odor after Cleansing No -Other Dressing silvadede silvadene SSD cream -Primary Dressing Covered/Secured with Dry Gauze, Dry Gauze, Dry Gauze, Secured with Secured with Secured with Tape Tape Tape 9. LOWER BACK cluster -Ulcer Cleansing Wound Cleanser Rinsed/ Rinsed/ Irrigated with Irrigated with Saline Saline -Foul Odor after Cleansing No -Other Dressing silvadene silavadene SSD cream -Primary Dressing Covered/Secured with Dry Gauze, Dry Gauze, Dry Gauze, Secured with Secured with Secured with Tape Tape Tape Treatment Response Procedure Procedure Tolerated Well Tolerated Well Pain Scale: 0-10 Numeric Is Patient Pain Free? Yes No Yes WC - Visit Discharge Discharge Condition Stable Stable Stable Ambulatory Status Ambulatory Ambulatory Ambulatory Transportation Private Auto Private Auto Private Auto Medication Reconcilliation completed & No No Yes provided to patient/care provider Clinical Summary of Care Provided Yes Yes Yes Charges/Coding Visit Charges Office Visits / Consults: 57776 OV L3 Est 20min Assessment/Plan Assessment/Plan (1) Pyoderma gangrenosum: CODE(S): L88 - Pyoderma gangrenosum (2) Ulcer of skin of breast: CODE(S): L98.499 - Non-pressure chronic ulcer of skin of other sites with unspecified severity (3) Skin ulcer of sternum with fat layer exposed: CODE(S): L98.492 - Non-pressure chronic ulcer of skin of other sites with fat layer exposed (4) Ulcer of trochanteric region of hip with fat layer exposed: CODE(S): L97.102 - Non-pressure chronic ulcer of unspecified thigh with fat layer exposed (5) Ulcer of trochanteric region of hip with fat layer exposed: CODE(S): L97.102 - Non-pressure chronic ulcer of unspecified thigh with fat layer exposed (6) Chronic ulcer of back: CODE(S): L98.429 - Non-pressure chronic ulcer of back with unspecified severity (7) Skin necrosis: CODE(S): I96 - Gangrene, not elsewhere classified (8) Hx of migraines: CODE(S): Z86.69 - Personal history of other diseases of the nervous system and sense organs (9) Smoker: CODE(S): F17.200 - Nicotine dependence, unspecified, uncomplicated (10) Encounter for smoking cessation counseling: CODE(S): Z71.6 - Tobacco abuse counseling (11) COPD (chronic obstructive pulmonary disease): CODE(S): J44.9 - Chronic obstructive pulmonary disease, unspecified (12) History of hand surgery: CODE(S): Z98.890 - Other specified postprocedural states (13) CRPS (complex regional pain syndrome), type I, upper: CODE(S): G90.519 - Complex regional pain syndrome I of unspecified upper limb (14) Prediabetes: CODE(S): R73.03 - Prediabetes (15) Morbid obesity with BMI of 40.0-44.9, adult: CODE(S): E66.01 - Morbid (severe) obesity due to excess calories; Z68.41 - Body mass index [BMI] 40.0-44.9, adult (16) History of irregular heartbeat: CODE(S): Z86.79 - Personal history of other diseases of the circulatory system (17) IBS (irritable bowel syndrome): CODE(S): K58.9 - Irritable bowel syndrome, unspecified (18) GERD (gastroesophageal reflux disease): CODE(S): K21.9 - Gastro-esophageal reflux disease without esophagitis (19) Arthritis: CODE(S): M19.90 - Unspecified osteoarthritis, unspecified site (20) Hypertension: CODE(S): I10 - Essential (primary) hypertension (21) Hx of dilation and curettage: CODE(S): Z98.890 - Other specified postprocedural states (22) Hx of section: CODE(S): Z98.891 - History of uterine scar from previous surgery (23) History of tubal ligation: CODE(S): Z98.51 - Tubal ligation status (24) History of hip replacement: CODE(S): Z96.649 - Presence of unspecified artificial hip joint (25) History of foot surgery: CODE(S): Z98.890 - Other specified postprocedural states PLAN: Plan This is a 50-year-old female who presented with multiple ulcerations on her body. The ulcerations involved the left breast, the left inframammary crease, the sternal area, both hips, and the low back. The patient's ulcerations initially demonstrated a large amount of necrotic and nonviable tissue. However, with the implementation of conservative treatment measures, there has been significant improvement in the appearance of the patient's ulcerations within the last several weeks. A diagnosis of pyoderma gangrenosum has been previously made by a emergency medicine specialist at [facility]. However, the patient was instructed by that former dermatology practice that they were unable to provide care due to the severity of her disease. Standard debridements have been deferred, as debridements are typically contraindicated with evidence that debridements may exacerbate the ulcerations of pyoderma gangrenosum. The patient has been advised to optimize her nutritional intake. She has been strongly advised to discontinue her smoking habit. We discussed continuing the use of Dakin's-moistened gauze to the sites of ulceration. However, the patient has indicated that historically she has had favorable results using Silvadene topically to her wounds in the past. She is insistent that she prefers the use of Silvadene topically. Therefore, we have acquiesced to the patient's wishes, and her ulcerations appear to have responded favorably. We are to pursue a multidisciplinary approach, and we have arranged for the patient to have consultation with a local emergency medicine specialist, Dr. Chris Lane. Her appointment with Dr. Lane is scheduled for September 22, 2025. Records and photos have been sent to Dr. Lane's office. We have recently initiated a systemic steroid, prednisone 50 mg p.o. daily. This appears to have resulted in improvement in the appearance of the patient's ulcerations. We will consider tapering the steroid dose in the near future. We will await Dr. Lane's recommendations, to determine whether there may be a role for other measures, such as the use of systemic immunosuppressants. The patient is to return in 2 weeks for reevaluation. Total time: 26 minutes
--- NOTE | 2025-08-31 09:31 | WC ---
PHOTO-RIGHT ABD/HIP 08/30/25
--- NOTE | 2025-08-31 09:35 | WC ---
PHOTO-MID STERNUM 08/30/25
--- NOTE | 2025-08-31 09:37 | WC ---
PHOTO-LEFT BREAST CLUSTER 08/30/25
--- NOTE | 2025-08-31 09:43 | WC ---
PHOTO-LOWER BACK CLUSTER 08/30/25
== END 2025-09-02 23:59 | disposition home or self-care (01) ==
LOC: WC 13:30
PROVIDERS: PCP Family Medicine; Referring Provider Family Medicine; Visit Provider Surgery
DX: L88 Pyoderma gangrenosum (principal); L97.112 Non-pressure chronic ulcer of right thigh with fat layer exposed; L98.492 Non-pressure chronic ulcer of skin of other sites with fat layer exposed; E66.01 Morbid (severe) obesity due to excess calories; Z68.41 Body mass index [BMI] 40.0-44.9, adult; I10 Essential (primary) hypertension; K21.9 Gastro-esophageal reflux disease without esophagitis; Z79.52 Long term (current) use of systemic steroids; R73.03 Prediabetes; F17.210 Nicotine dependence, cigarettes, uncomplicated
CPT/HCPCS: 99213; G0463

== ENCOUNTER → 2025-10-12 | Outpatient (CLI) | payer MEDICAID, SELFPAY | END | disposition home or self-care (01) | LOC: LABSPEC 15:32 | PROVIDERS: PCP Family Medicine; Referring Provider Dermatology; Visit Provider Dermatology | DX: L98.0 Pyogenic granuloma (principal); Z79.899 Other long term (current) drug therapy | CPT/HCPCS: 87015; 87070; 87075; 87077; 87101; 87116; 87176; 87186; 87205; 87206 ==